=== PATIENT | female | born 1950 ===

== ENCOUNTER 2024-11-30 21:45 | Outpatient (BNV) | payer OTHER, SELFPAY | END 2024-12-13 17:22 | PROVIDERS: Admitting Provider Psychiatry & Neurology Psychiatry; PCP Internal Medicine; Visit Provider Radiology Vascular & Interventional Radiology | DX: S72.121A Displaced fracture of lesser trochanter of right femur, initial encounter for closed fracture (principal); M17.11 Unilateral primary osteoarthritis, right knee; Z96.7 Presence of other bone and tendon implants | CPT/HCPCS: 73552; 73560 ==

== ENCOUNTER 2024-11-30 21:45 | Outpatient (BNV) | payer OTHER, SELFPAY | END 2024-12-17 15:15 | PROVIDERS: Admitting Provider Psychiatry & Neurology Psychiatry; PCP Internal Medicine; Visit Provider Nuclear Medicine | DX: R10.9 Unspecified abdominal pain (principal) | CPT/HCPCS: 74018 ==

== ENCOUNTER 2024-11-30 21:45 | Inpatient (IN) | payer OTHER, SELFPAY ==
--- NOTE | ~2024-11-30 | XR_ITS ---
CLINICAL HISTORY: rt tib plat fx 3 view right knee Comparison: None Findings: Visualized portions of the femoral intramedullary silvio and screw fixation device appear intact. Severe tricompartmental degenerative change, most pronounced within the medial compartment. No effusion. Diffuse vascular calcification noted. IMPRESSION: Severe degenerative changes. No definite acute process. This document has been electronically signed by: Ced Vallecillo MD on 12/14/2024 11:01:37
--- NOTE | ~2024-11-30 | XR_ITS ---
CLINICAL HISTORY: continued compaint of abdominal discomfort 1 view abdomen Comparison: None Findings: No pneumoperitoneum or pneumatosis. No abnormal calcifications. Peg tube. No acute fractures. Severe degenerative change of the left hip. IMPRESSION: The bowel gas pattern is normal This document has been electronically signed by: Marshall Pennington MD on 12/17/2024 16:06:30
--- NOTE | ~2024-11-30 | XR_ITS ---
CLINICAL HISTORY: right hip imn 2 view right femur Comparison: None Findings: Comminuted fracture in the region of the lesser trochanter and along the femoral neck. The intramedullary silvio and nail fixation device appears intact. The right femoral head is well directed towards the right acetabulum. Impression: Postsurgical changes without evidence of periprosthetic fracture. Mildly displaced lesser trochanteric fracture, likely chronic. No comparison studies. This document has been electronically signed by: Ced Vallecillo MD on 12/14/2024 11:27:38
[2024-11-30 22:13] VITALS: BP 123/64; PULSE 94; RESP 18; TEMP 36.7; O2SAT 98
[2024-11-30 22:15] VITALS: BMI 29.5
[2024-12-01] MEDS: Acetaminophen 325 MG TABLET 650 MG PO (02:37)
[2024-12-01] MEDS: traZODone HCL 50 MG TABLET PO (02:38)
[2024-12-01] MEDS: Loperamide HCl Oral Liquid 2 MG/15 ML LIQUID PO (02:39)
[2024-12-01] MEDS: hydrOXYzine HCL 25 MG TABLET PO (02:39)
--- NOTE | 2024-12-01 03:34 | PC.NURSE ---
Patient is 74 y/o female admitted on a CV at 22:10 via stretcher, from [facility]. Medical history is significant for thyroid nodule suspicious of cancer, breast cancer s/p R mastectomy in remission, GERD, PE/DVT, HDL, T2DM, and CHF. Admitting diagnisis is MDD and SI . Patient had an unwitnessed fall at home on 11/04 that was actually a suicide attempt; injuries sustained include posterior head laceration, right intertrochanteric fracture and right tibial plateau fracture. Patient underwent R hip fx repair on 11/04, is currently wheelchair bound, NWB RLE and WBAT LLE, transfers via mechanical lift. Hospital course was complicated r/t c-diff infection; patient underwent vancomyocin therapy and currently cleared prior to discharge. Patient stated during hospitalization that unable to eat d/t sickness. Speech pathology cleared patient for pureed diet however a PEG tube was placed on 11/23 which is currently used for bolus feed. Patient is alert and oriented x 3-4 upon arrival, vss, denies any SI/HI, at times apprehensive and tearful during admission assessment. Skin check and contraband search done: skin excoriation noted in bilateral inner thighs, groin and sacral areas, healing surgical scar with steri-strips in R hip and thigh. [facility] rec completed, patient placed on 5 min checks.
[2024-12-01 07:53] LABS: Estimated Average Glucose 108 mg/dL; Hemoglobin A1c % 5.4 % (<6.0); Total Hemoglobin (HGBA1C) 2903.7822 umol/L
[2024-12-01 08:09] LABS: Alanine Aminotransferase 68 U/L (0-31); Albumin Level 3.3 g/dL (3.5-5.0); Alkaline Phosphatase 375 U/L (39-117); Anion Gap 12 (12-20); Aspartate Amino Transferase 49 U/L (5-31); Bilirubin Total 0.7 mg/dL (0.0-1.0); Blood Urea Nitrogen 22 mg/dL (9-16); Calcium 9.7 mg/dL (8.4-10.2); Carbon Dioxide 28 mmol/L (22-29); Chloride 106 mmol/L (96-108); Cholesterol 165 mg/dL (<200); Creatinine Clr Calc Pharmacy 84.5; Estimated Glomerular Filt Rate > 60; Glucose Random 109 mg/dL (60-115); HDL Cholesterol 39 mg/dL (>40); LDL Cholesterol Calculated 98 mg/dL (<100); Potassium 4.1 mmol/L (3.3-5.1); Sodium 142 mmol/L (135-145); Triglycerides 140 mg/dL (<150)
[2024-12-01 08:22] LABS: TSH reflex Free T4 0.23 uIU/mL (0.32-4.0)
[2024-12-01 09:03] LABS: Free T4 (Free Thyroxine) 1.06 ng/dL (0.71-1.85)
[2024-12-01] MEDS: Omeprazole 20 MG CAPSULE.DR PO (09:45)
[2024-12-01] MEDS: Sertraline HCL 100 MG TABLET G-TUBE (09:45)
[2024-12-01 10:00] VITALS: BP 134/63; PULSE 94; RESP 16; TEMP 37; O2SAT 97
[2024-12-01 11:09] VITALS: BP 128/62
[2024-12-01] MEDS: Metoprolol Tartrate 12.5 MG HALFTAB G-TUBE ×2 (11:09→22:07)
[2024-12-01] MEDS: oxyCODONE HCl Immed Release 5 MG TABLET PO (11:10)
[2024-12-01] MEDS: Loperamide HCl Oral Liquid 2 MG/15 ML LIQUID G-TUBE ×2 (11:13→22:07)
[2024-12-01 11:25] VITALS: BMI 29.5
--- NOTE | 2024-12-01 11:37 | MHC.CLN ---
RE: CONSULT PT REQUIRE TF FOR NUTRITION SUPPORT PT ON BOLUS FEEDS -WAS TAKING [employer] BRAND 1.5 (ONLY HAS 2 CARTONS HERE AT FACILITY AT THIS TIME) PEG PLACED 11/23 REVIEWED LABS DISCUSSED CASE WITH FIDEL MARINO NURSE-ONLY RTH TF AVAILABLE AT FACILITY RECOMMEND OSMOLITE 1.5 TF BOLUS 300ML Q 6 HRS WITH 240ML FREE WATER FLUSHES Q 8 HRS TO PROVIDE 1800KCALS TOTAL (28KCALS/KG), 75G PROTEIN (1.2G/KG), 2092ML TOTAL WATER FROM FORMULA AND FLUSHES DO NOT COMBINE FORMULA AND FLUSHES AT SAME TIME MONITOR TOLERANCE AND LYTES FORMULA IS SUITABLE FOR LACTOSE INTOLERANCE AND DOES NOT CONTAIN EGG (ALLERGY LISTED) WEEKLY WEIGHTS SEE ALSO FULL CLINICAL NUTRITION ASSESSMENT
--- NOTE | 2024-12-01 11:58 | HO.PM.IMCN ---
History of Present Illness Data of Consult Service Date: 12/01/24 Primary Care Provider: Alexandra Poe MD [facility] Reason for consult: Admission H&P Pt is a 72-year-old female with a PMH significant for hx of DVT/PE currently on Lovenox, CHF unspecified, IBS, HLD, prediabetes diet-controlled, hx of breast cancer, thyroid nodule suspicious for cancer, GERD, dysphagia with PEG tube in place, and wheelchair-bound for the past 8 years admitted to [facility] psych for increasing depression with SI. Pt was initially brought to the hospital as a trauma 1 activation after unwitnessed fall out of her wheelchair at home which pt subsequently admitted was a suicide attempt. Pt underwent full trauma workup and was found to have a right intertrochanteric fracture, right tibial plateau fracture, and lateral left 3rd rib fracture. Pt went to the OR on 11/04 for repair of right hip fracture. Pt was treated non operatively for tibial plateau fracture with immobilizer and nonweightbearing. Patient's hospital course was complicated by C diff infection where she was treated with a 14 day course of oral vancomycin with repeat C diff studies negative. Pt was also seen by speech therapy that recommended pureed diet, though pt refused to eat saying that she was too sick to tolerate any oral intake and was unable to swallow. Pt had PEG tube placed on 11/23 by GI and eventually transitioned to bolus tube feeds on a non soy and lactose-free diet. Hospitalist consult for admission H&P. Pt complains of left hip and left knee pain that reports he is poorly controlled with current analgesics. Pt states she is unable to tolerate any weight-bearing, and reports has been wheelchair bound for at least the past 8 years secondary to ?end stage osteoarthritis? of left hip. Also complains of left side pain with movement. States is having loose stool, though reports this is normal for her. Otherwise denies any acute medical complaints. No SOB or difficulty breathing. Denies chest pain/pressure, palpitations. No fever, chills, nausea, vomiting, abdominal pain. Labs reviewed, significant for transaminitis of AST 49, ALT 68, and alk-phos 375. TSH mildly reduced at 0.23 but T4 WNL. Review of Systems Review of Systems: Negative except for that which is stated in the HPI [facility] Medical History (Updated 12/01/24 @ 12:56 by KI Doran) Breast cancer, right Prediabetes HTN (hypertension) GERD (gastroesophageal reflux disease) Fracture of right tibial plateau Closed right hip fracture Pulmonary embolism DVT (deep venous thrombosis) Dysphagia HLD (hyperlipidemia) Thyroid nodule Social History Household Members: Children Household Members Other:: son and daughter Housing: House Do you presently have visiting nurse or other home services: No Patient Tobacco Use Status: Never used Tobacco Smoked in Last 30 Days: No Patient Interested in Nicotine Replacement: No Patient Given Instructions on How to Stop Smoking: No Second Hand Smoke Exposure: No Use of substances other than those prescribed or required for medical reasons: No Currently Displaying Signs/Symptoms of Drug Intoxication Withdrawal: No Any prior treatment program specific to substance use: No Have you been hit, kicked, punched, or otherwise hurt by someone within the past year? If so, by whom?: No Do you feel safe in your current relationship?: No Current Relationship Is there a partner from a previous relationship who is making you feel unsafe now?: No Advance Directives: No Advance Directives Information Provided: No Do you have a plan to hurt others: No Plan Recently lost weight without trying: Unsure Nutrition Risks: Difficulty swallowing Patient : No : No Poor oral hygiene: No Meds Allergies Allergy/AdvReac Type Severity Reaction Status Date / Time apple Allergy Unknown Verified 11/30/24 22:50 cefuroxime Allergy Unknown Verified 11/30/24 22:50 cephalexin [From Keflex] Allergy Unknown Verified 11/30/24 22:50 ciprofloxacin Allergy Unknown Verified 11/30/24 22:50 clarithromycin Allergy Unknown Verified 11/30/24 22:50 codeine Allergy Unknown Verified 11/30/24 22:50 doxycycline Allergy Unknown Verified 11/30/24 22:50 Egg Derived Allergy Unknown Verified 11/30/24 22:50 erythromycin base Allergy Unknown Verified 11/30/24 22:50 furosemide Allergy Unknown Verified 11/30/24 22:50 hydromorphone [From Dilaudid] Allergy Unknown Verified 11/30/24 22:50 indomethacin Allergy Unknown Verified 11/30/24 22:50 Iodinated Contrast Media Allergy Unknown Verified 11/30/24 22:50 iodine Allergy Unknown Verified 11/30/24 22:50 nitrofurantoin Allergy Unknown Verified 11/30/24 22:50 omeprazole Allergy Unknown Verified 11/30/24 22:50 penicillin G Allergy Unknown Verified 11/30/24 22:50 Penicillins Allergy Unknown Verified 11/30/24 22:50 pseudoephedrine Allergy Unknown Verified 11/30/24 22:50 shellfish derived [shellfish] Allergy Unknown Verified 11/30/24 22:50 Sulfa (Sulfonamide Allergy Unknown Verified 11/30/24 22:50 Antibiotics) Active Medications: Current Medications Acetaminophen (Acetaminophen 325 Mg Tablet) 650 mg G-TUBE Q6H PRN PRN Reason: Headache/Pain, Scale 1-10 Al Hydroxide/Mg Hydroxide (Magnesium Hydrox/Alum Hydrox 30 Ml Oral.Susp) 30 ml G-TUBE Q6H PRN PRN Reason: Heartburn/Nausea Hydroxyzine HCl (Hydroxyzine Hcl 25 Mg Tablet) 25 mg G-TUBE Q6H PRN PRN Reason: mild anxiety Loperamide HCl (Loperamide Hcl Oral Liquid 2 Mg/15 Ml Liquid) 2 mg G-TUBE Q6H PRN PRN Reason: Diarrhea Last Admin: 12/01/24 11:13 Dose: 2 mg Magnesium Hydroxide (Milk Of Magnesia 30 Ml Oral.Susp) 30 ml G-TUBE DAILY PRN PRN Reason: Constipation Metoprolol Tartrate (Metoprolol Tartrate 12.5 Mg Halftab) 12.5 mg G-TUBE BID [facility]; Protocol Last Admin: 12/01/24 11:09 Dose: 12.5 mg Mirtazapine (Mirtazapine 7.5 Mg Tablet) 7.5 mg G-TUBE BEDTIME KLAUS Nicotine Polacrilex (Nicotine Polacrilex 2 Mg Gum) 4 mg BUCCAL Q2H PRN PRN Reason: Nicotine Cravings Omeprazole (Omeprazole 20 Mg Capsule.Dr) 20 mg PO DAILY [facility] Last Admin: 12/01/24 09:45 Dose: 20 mg Oxycodone HCl (Oxycodone Hcl Immed Release 5 Mg Tablet) 5 mg PO Q6H PRN PRN Reason: Pain, Severe (Pain Scale 7-10) Last Admin: 12/01/24 11:10 Dose: 5 mg Sertraline HCl (Sertraline Hcl 100 Mg Tablet) 100 mg G-TUBE DAILY [facility] Last Admin: 12/01/24 09:45 Dose: 100 mg Trazodone HCl (Trazodone Hcl 50 Mg Tablet) 50 mg G-TUBE BEDTIME MRX1 PRN PRN Reason: Insomnia Home Medications ?Medication ?Instructions ?Recorded ?Confirmed ?Last Taken ?Type acetaminophen 500 mg tablet 1,000 mg PO Q6H PRN Pain 11/30/24 11/30/24 Unknown History enoxaparin 40 mg/0.4 mL 40 mg subcut DAILY 11/30/24 11/30/24 Unknown History subcutaneous syringe lansoprazole 30 mg capsule,delayed 30 mg PO DAILY 11/30/24 11/30/24 Unknown History release loperamide 1 mg/5 mL oral liquid 2 mg PO Q6H PRN Diarrhea 11/30/24 11/30/24 Unknown History metoprolol tartrate 25 mg tablet 12.5 mg PO BID 11/30/24 11/30/24 Unknown History mirtazapine 7.5 mg tablet 7.5 mg PO BEDTIME 11/30/24 11/30/24 Unknown History oxycodone 5 mg tablet 5 mg PO Q6H PRN Pain 11/30/24 11/30/24 Unknown History sertraline 100 mg tablet 100 mg PO DAILY 11/30/24 11/30/24 Unknown History Physical Exam Vital Signs and Narrative: Vital Signs: Last Vital Signs Temp 98.6 F 12/01/24 10:00 Pulse 94 12/01/24 10:00 Resp 16 12/01/24 10:00 BP 128/62 12/01/24 11:09 Pulse Ox 97 12/01/24 10:00 O2 Del Method Room Air 11/30/24 22:13 BMI result Body Mass Index 29.5 General: AOx3, no acute distress Resp: CTA bilaterally CVS: S1, S2, RRR GI: +BS, NT, no distention Skin: Warm, dry Neuro: Cranial nerves II-XII grossly intact bilaterally. Motor grossly intact bilaterally Extremities: No edema. Right hip and lower extremity ROM reduced secondary to pain. Left lower extremity strength 1/5. Pt capable of wiggling toes. Pedal pulses bilaterally intact and 2+. Results Labs 12/01/24 07:41 Labs: Laboratory Results - last 24 hr 12/01/24 07:41 Anion Gap 12 Estim Creat Clear Calc 84.5 Estimated GFR > 60 Random Glucose 109 Estimat Average Glucose 108 Hemoglobin A1c % 5.4 Calcium 9.7 Total Bilirubin 0.7 AST 49 H ALT 68 H Alkaline Phosphatase 375 H Total Protein 7.0 Albumin 3.3 L Triglycerides 140 Cholesterol 165 LDL Cholesterol, Calc 98 HDL Cholesterol 39 L TSH 0.23 L Free T4 1.06 Assessment and Plan (1) Medical clearance for psychiatric admission: Status: Acute Plan Pt is a 72-year-old female with a PMH significant for hx of DVT/PE currently on Lovenox, CHF unspecified, IBS, HLD, prediabetes diet-controlled, hx of breast cancer, thyroid nodule suspicious for cancer, GERD, dysphagia with PEG tube in place, and wheelchair-bound for the past 8 years admitted to [facility] for increasing depression with SI. Hospitalist consult for medical admission H&P. Mood disorder Plan as per Psychiatry Left hip fracture Underwent surgical repair on 11/04 Continue Tylenol, Oxy for pain management Left tibial plateau fracture Continue immobilizer and nonweightbearing for now Analgesics for pain management Left rib fracture No surgical intervention necessary Analgesics for pain management Dysphagia PEG tube bolus feeding as per nutrition Pt previously cleared for pureed diet, the pt refusing to eat or swallow Recent C diff infection Hospital Course complicated by C diff infection pt completed 14 day course of oral vancomycin Repeat C diff studies were negative No other treatment or workup indicated at this time Thyroid mass Initially visualized on ultrasound on 09/19/2024 and deemed ?highly suspicious? Initial biopsy nondiagnostic Pt refused repeat biopsy while hospitalized Follow up outpatient for repeat thyroid bioposy Hx of DVT/PE Continue Lovenox HTN Pt apparently had episode of wide complex tachycardia either SVT with aberrancy vs slow VT vs accelerated idioventricular rhythm Cardiology consulted on 11/08/2024 who recommended no further workup or treatment Continue metoprolol Prediabetes Diet-controlled Current A1c 5.4 GERD Continue PPI Thank you for allowing us to participate in the care of this patient. Signing off at this time. Please re-consult if any acute complaints or issues arise.
--- NOTE | 2024-12-01 12:09 | P.HPPS_ITS ---
HPI Date of Service: 12/01/24 Chief Complaint: major depressive d/o Sources of Information: patient interviewed, chart reviewed and crisis/core team assessment reviewed HPI Subjective Notes: Flores Warning and Conditional Voluntary Narrative: Mrs. Nicholas is a 74 year-old woman with was brought initially to [facility] ED after she felt from wheelchair and sustained fracture in distal right femoral neck intertrochanteric region. She underwent surgical repair on 11/04. She reported throwing self down the stairs was a suicide attempts. During the hospital stay, she reported she continued to report regret from still being alive. She was seen by psychiatry and was started on sertraline which was titrated to 100mg po daily. She had daily OT/PT. She apparently had reported difficulty swallowing and was started on PEG on 11/23. She had declined anticoagulant for hx of DVT/PE, she had been on coumadin prior to coming to the hospital but reported fear of bleeding. She was continued on lovenox. Pt seen in her room. She is lying in bed. She reports she is in a lot of pain and is worried about moving her legs despite support from PT and OT. She reports she may not be able to participate in PT/OT therapy. She reports she has been feeling more depressed in the past few months. When asked to elaborate, she reports she does not what to think about it and talk about it. She initially reported she does not want to talk about her depression nor reason for being here in the hospital. She denied suicidal ideation. She reported she has children and wants to be with them. She reported she misses her family and hopes to see them soon. She also reports her family are upset with me. She reports now I'm broken. She denies hx of suicide attempts. She denies hx of VH/AH. No signs of delusions. No hx of delusions. She reports poor sleep due to pain. She reports increased loose stools, which are chronic and apparently due to IBS. She reports that although loose stools are chronic they seemed to have increased in frequency recently. She attributed it to being lactose intolerant. Past Psychiatric History: Inpt: none OP: none Past medication trials: she reports hx of sertraline which was effective but stopped because she was feeling better Hx of suicide attempt: denies prior suicide attempt Medical Evaluation Reviewed: Yes [facility] Medical History Breast cancer, right Prediabetes HTN (hypertension) GERD (gastroesophageal reflux disease) Fracture of right tibial plateau Closed right hip fracture Pulmonary embolism DVT (deep venous thrombosis) Dysphagia HLD (hyperlipidemia) Thyroid nodule Family History: denies Social History: Lives with daughter. She worked as transportation aid. She has twin daughter, one who . She has another daughter with number of health conditions. Substance History: denies Trauma History: reports family disputes Diagnostics Vital Signs (24Hr): Vital Signs - 24 hr 11/30/24 22:13 12/01/24 10:00 12/01/24 11:09 Temperature 98.1 F 98.6 F Pulse Rate 94 94 Respiratory Rate 18 16 Blood Pressure 123/64 134/63 128/62 Pulse Oximetry 98 97 Oxygen Delivery Method Room Air BMI result Body Mass Index 29.5 Labs 12/01/24 07:41 Labs: Laboratory Results - last 48 hr 12/01/24 07:41 Sodium 142 Potassium 4.1 Chloride 106 Carbon Dioxide 28 Anion Gap 12 BUN 22 H Creatinine 0.63 Estim Creat Clear Calc 84.5 Estimated GFR > 60 Random Glucose 109 Estimat Average Glucose 108 Hemoglobin A1c % 5.4 Calcium 9.7 Total Bilirubin 0.7 AST 49 H ALT 68 H Alkaline Phosphatase 375 H Total Protein 7.0 Albumin 3.3 L Triglycerides 140 Cholesterol 165 LDL Cholesterol, Calc 98 HDL Cholesterol 39 L TSH 0.23 L Free T4 1.06 Meds/Allergies Meds Home Medications ?Medication ?Instructions ?Recorded ?Confirmed ?Type acetaminophen 500 mg tablet 1,000 mg PO Q6H PRN Pain 11/30/24 11/30/24 History enoxaparin 40 mg/0.4 mL 40 mg subcut DAILY 11/30/24 11/30/24 History subcutaneous syringe lansoprazole 30 mg capsule,delayed 30 mg PO DAILY 11/30/24 11/30/24 History release loperamide 1 mg/5 mL oral liquid 2 mg PO Q6H PRN Diarrhea 11/30/24 11/30/24 History metoprolol tartrate 25 mg tablet 12.5 mg PO BID 11/30/24 11/30/24 History mirtazapine 7.5 mg tablet 7.5 mg PO BEDTIME 11/30/24 11/30/24 History oxycodone 5 mg tablet 5 mg PO Q6H PRN Pain 11/30/24 11/30/24 History sertraline 100 mg tablet 100 mg PO DAILY 11/30/24 11/30/24 History Allergies Allergies Allergy/AdvReac Type Severity Reaction Status Date / Time apple Allergy Unknown Verified 11/30/24 22:50 cefuroxime Allergy Unknown Verified 11/30/24 22:50 cephalexin [From Keflex] Allergy Unknown Verified 11/30/24 22:50 ciprofloxacin Allergy Unknown Verified 11/30/24 22:50 clarithromycin Allergy Unknown Verified 11/30/24 22:50 codeine Allergy Unknown Verified 11/30/24 22:50 doxycycline Allergy Unknown Verified 11/30/24 22:50 Egg Derived Allergy Unknown Verified 11/30/24 22:50 erythromycin base Allergy Unknown Verified 11/30/24 22:50 furosemide Allergy Unknown Verified 11/30/24 22:50 hydromorphone [From Dilaudid] Allergy Unknown Verified 11/30/24 22:50 indomethacin Allergy Unknown Verified 11/30/24 22:50 Iodinated Contrast Media Allergy Unknown Verified 11/30/24 22:50 iodine Allergy Unknown Verified 11/30/24 22:50 nitrofurantoin Allergy Unknown Verified 11/30/24 22:50 omeprazole Allergy Unknown Verified 11/30/24 22:50 penicillin G Allergy Unknown Verified 11/30/24 22:50 Penicillins Allergy Unknown Verified 11/30/24 22:50 pseudoephedrine Allergy Unknown Verified 11/30/24 22:50 shellfish derived [shellfish] Allergy Unknown Verified 11/30/24 22:50 Sulfa (Sulfonamide Allergy Unknown Verified 11/30/24 22:50 Antibiotics) Mental Status Exam Mental Status Exam Narrative: Appearance: wearing hospital gown, MO, in some physical pain due to fractures, hip surgery and chronic osteoarthritis Behavior: guarded, superficially cooperative Psychomotor: lower spasm-like movement of legs, no tremors Speech: clear, normal rate/rhythm/volume, spontaneous TP: linear TC: wanting to see her family Mood: anxious Affect: congruent SI: denies, but also not fully forthcoming HI: denies VH/AH: denies Delusions: no overt signs Insight/judgment: poor x 2. Memory/cog: alert, oriented x 3. pending further cognitive/memory assessments. Assessment & Plan Assessment & Plan (1) MDD (major depressive disorder), recurrent episode, severe: Status: Acute Code(s): F33.2 - Major depressive disorder, recurrent severe without psychotic features (2) Heart failure: Status: Acute Code(s): I50.9 - Heart failure, unspecified (3) Osteoarthritis: Status: Acute Code(s): M19.90 - Unspecified osteoarthritis, unspecified site (4) Thyroid nodule: Status: Acute Code(s): E04.1 - Nontoxic single thyroid nodule (5) HTN (hypertension): Status: Acute Code(s): I10 - Essential (primary) hypertension (6) GERD (gastroesophageal reflux disease): Status: Acute Code(s): K21.9 - Gastro-esophageal reflux disease without esophagitis Plan Mrs. Nicholas is a 74 year-old woman who was brought via EMS to [facility] ED after falling down the stairs. She sustained a right trochanteric fracture, under went repair on 11/04/2024. She reported this was a suicide attempt. She is vague about events leading to suicide attempt. She declines to talk about her depression and provide more details about it. She does denied any plan or intent to harm herself at this moment but also reports feeling depressed and being in a worse situation than prior to suicide attempt. She was started on sertraline while at [facility]. Sertraline was titrated to 100mg po daily. She does have hx of IBS with diarrhea. She reports increase loose stools and although she suspects may be due to feeding with lactose, also consider exacerbation of IBS related loose stools with sertraline. She reports no improvement so far in terms of depression with current medications. PLAN 1. Admit to S1, CV, 5 mins checks 2. continue sertraline 100mg po daily (monitor exacerbation of underlying GI condition and loose stools). May consider switch to another antidepressant. 3. scheduled loperamide TID. 4. obtain collateral information 5. OT/PT consult 6. ST consult for swallowing 7. aftercare planning. Patient educated on: diagnosis and medication risk/benefits Reason for continued inpatient stay Substantial Risk for: harm to self Statement Statement: I have reviewed the history and physical and performed a pertinent examination on my patient. No changes have occurred unless specified. If the History and Physical was not performed prior to admission, the Hospitalist's service will be consulted for completing the admission physical. Time Spent With Patient Time: Total time managing care of this patient today ____ minutes.
[2024-12-01 15:53] VITALS: BMI 27.4
[2024-12-01 20:00] VITALS: BP 121/58; PULSE 63; RESP 18; TEMP 36.3; O2SAT 98
[2024-12-01] MEDS: Mirtazapine 7.5 MG TABLET G-TUBE (22:07)
[2024-12-01] MEDS: hydrOXYzine HCL 25 MG TABLET G-TUBE (22:07)
[2024-12-01] MEDS: Enoxaparin Sodium 40 MG/0.4 ML SYRINGE SUBCUT (22:17)
--- NOTE | 2024-12-01 22:21 | PC.NURSE ---
Upon initial assessment, patient complaining about persistient diarrhea. When educated on timing of tube feeds and water bolus, patient states I need to take a break from them, my body can't handle it. Education provided. Provider ultrasound technologist sonographer (CAW) notified. Patient requests to speak with dietitian tomorrow regarding tube feed schedule.
[2024-12-02 09:26] VITALS: BP 117/67; PULSE 93; RESP 18; TEMP 36.7; O2SAT 96
[2024-12-02] MEDS: Metoprolol Tartrate 12.5 MG HALFTAB G-TUBE ×2 (09:26→21:18)
[2024-12-02] MEDS: Sertraline HCL 100 MG TABLET G-TUBE (09:26)
[2024-12-02] MEDS: Omeprazole 20 MG CAPSULE.DR PO (09:27)
[2024-12-02] MEDS: Loperamide HCl Oral Liquid 2 MG/15 ML LIQUID 4 MG G-TUBE ×3 (11:28→21:18)
[2024-12-02] MEDS: diazePAM 2 MG TABLET G-TUBE (11:28)
--- NOTE | 2024-12-02 16:01 | MHC.CLN ---
Addendum entered by Kira Carroll RD 12/02/24 16:11: OPEN AREA NOTED TO BUTTOCK. NO ADDITIONAL WOUND INFO NOTED AT THIS TIME. RD TO MONITOR SKIN INTEGRITY. Original Note: F/U VISITED WITH PATIENT IN HER ROOM. NO QUESTIONS CONCERNING TUBE FEEDING. APPEARS TO BE TOLERATING CURRENT TUBE FEEDING. RECOMMEND CONTINUE OSMOLITE 1.5 TF BOLUS 300ML Q 6 HRS WITH 240ML FREE WATER FLUSHES Q 8 HRS TO PROVIDE 1800KCALS TOTAL (28KCALS/KG), 75G PROTEIN (1.2G/KG), 2092ML TOTAL WATER FROM FORMULA AND FLUSHES DO NOT COMBINE FORMULA AND FLUSHES AT SAME TIME MONITOR TOLERANCE AND LYTES. FORMULA IS SUITABLE FOR LACTOSE INTOLERANCE AND DOES NOT CONTAIN EGG (ALLERGY LISTED). SEEN BY TOUR GUIDE TODAY. FOLLOW FOR POSSIBLE DIET ADVANCEMENT.
[2024-12-02] MEDS: Enoxaparin Sodium 40 MG/0.4 ML SYRINGE SUBCUT (16:07)
--- NOTE | 2024-12-02 17:16 | HO.WOUND ---
Wound Consult: Initial 74yr old?female admitted to [facility] on 11/30/24 - See progress notes and H&P for detailed history.? Wound consult placed for coccyx.? Patient agreeable to assessment and photo documentation.? Sacrum Etiology: ??MASD - IAD (Moisture Associated Skin Damage - Incontinence Associated Dermatitis) Wound Bed: red pink blanchable tissue with scattered areas of erosion and tissue loss Drainage / Odor: None noted Edges: ? Mirrored and irregular Izzy wound: ?MASD - pink intact blanchable tissue No Induration, Fluctuance or Warmth noted Pain: pain reported Goals of Treatment: ? Triad to allow for moist wound healing and to protect from friction and excess moisture Perineal area assessed for fungal dermatitis - red moist tissue with mirrored advancing boarders with satellite lesions noted. TT to Provider Xuan Saldivar NP for nystatin powder. GLORIA pump in use. Recommendations: 1. Turn and Reposition every 2 hours and as needed for patient comfort.? Use pillows or wedges to support off loading positions. 2. Off Load all bony prominences with use of pillows and heel boots if needed.? Apply Preventative foams where needed. ? 3. Monitor for incontinence and moisture control, use barrier creams when needed for prevention and treatment. 4. Provide adequate and supplemental nutrition.? 5. Continue low air loss mattress. 6. When applicable maintain blood glucose levels per Providers order. Perineal - Cleanse with PH balance wipes, pat dry with soft cloth.? Apply antifungal power to assist with moisture management.? Be sure to dust of excess powder to prevent caking on skin and in folds. Apply per provider orders. Apply thin layer of barrier cream to affected area.? Apply twice daily and Reapply thin layer PRN after each episode of incontinence. Sacrum - Off Load Pressure with Q2 hr turns and use of pillows - Cleanse with PH balance spray or wipes, pat dry. ?Apply thin layer of Triad to wound bed - only pat and dab no scrub and rub when soiling occurs. Reapply thin layer PRN after each episode of incontinence. Re-consult wound care Nurse for wound deterioration or wound changes.
--- NOTE | 2024-12-02 17:29 | HO.PSYCHPN ---
Subjective Subjective Date of Service: 12/02/24 Reason For Visit: major depressive d/o Subjective Notes: Conditional Voluntary Interim History: Pt evasive when it comes to talking about her depression and suicide attempt. She reports she is fearful of PT and OT interventions due to pain. She also continues to report that she is not able to eat- despite another eval from with no abnormal findings nor signs of chocking. She denies SI/HI. She reports increased loose stool, scheduled loperamide. may consider changing antidepressant with less GI side effects especially in setting of IBS. Mental Status Exam Mental Status Exam Narrative: Appearance: wearing hospital gown, MO, in some physical pain due to fractures, hip surgery and chronic osteoarthritis Behavior: guarded, superficially cooperative Psychomotor: lower spasm-like movement of legs, no tremors Speech: clear, normal rate/rhythm/volume, spontaneous TP: linear TC: wanting to see her family Mood: anxious Affect: congruent SI: denies, but also not fully forthcoming HI: denies VH/AH: denies Delusions: no overt signs Insight/judgment: poor x 2. Memory/cog: alert, oriented x 3. pending further cognitive/memory assessments. Diagnostics Vital Signs (24Hr): Vital Signs - 24 hr 12/01/24 20:00 12/02/24 09:26 Temperature 97.3 F 98.1 F Pulse Rate 63 93 Respiratory Rate 18 18 Blood Pressure 121/58 L 117/67 Pulse Oximetry 98 96 Oxygen Delivery Method Room Air Room Air BMI result Body Mass Index 27.4 Labs 12/01/24 07:41 Labs: Laboratory Results - last 48 hr 12/01/24 07:41 Sodium 142 Potassium 4.1 Chloride 106 Carbon Dioxide 28 Anion Gap 12 BUN 22 H Creatinine 0.63 Estim Creat Clear Calc 84.5 Estimated GFR > 60 Random Glucose 109 Estimat Average Glucose 108 Hemoglobin A1c % 5.4 Calcium 9.7 Total Bilirubin 0.7 AST 49 H ALT 68 H Alkaline Phosphatase 375 H Total Protein 7.0 Albumin 3.3 L Triglycerides 140 Cholesterol 165 LDL Cholesterol, Calc 98 HDL Cholesterol 39 L TSH 0.23 L Free T4 1.06 Medications Medications Current Medications Acetaminophen (Acetaminophen 325 Mg Tablet) 650 mg G-TUBE Q6H PRN PRN Reason: Headache/Pain, Scale 1-10 Al Hydroxide/Mg Hydroxide (Magnesium Hydrox/Alum Hydrox 30 Ml Oral.Susp) 30 ml G-TUBE Q6H PRN PRN Reason: Heartburn/Nausea Enoxaparin Sodium (Enoxaparin Sodium 40 Mg/0.4 Ml Syringe) 40 mg SUBCUT Q24H [facility] Last Admin: 12/02/24 16:07 Dose: 40 mg Hydroxyzine HCl (Hydroxyzine Hcl 25 Mg Tablet) 25 mg G-TUBE Q6H PRN PRN Reason: mild anxiety Last Admin: 12/01/24 22:07 Dose: 25 mg Loperamide HCl (Loperamide Hcl Oral Liquid 2 Mg/15 Ml Liquid) 4 mg G-TUBE TID [facility] Last Admin: 12/02/24 16:09 Dose: 4 mg Magnesium Hydroxide (Milk Of Magnesia 30 Ml Oral.Susp) 30 ml G-TUBE DAILY PRN PRN Reason: Constipation Metoprolol Tartrate (Metoprolol Tartrate 12.5 Mg Halftab) 12.5 mg G-TUBE BID [facility]; Protocol Last Admin: 12/02/24 09:26 Dose: 12.5 mg Mirtazapine (Mirtazapine 7.5 Mg Tablet) 7.5 mg G-TUBE BEDTIME [facility] Last Admin: 12/01/24 22:07 Dose: 7.5 mg Nicotine Polacrilex (Nicotine Polacrilex 2 Mg Gum) 4 mg BUCCAL Q2H PRN PRN Reason: Nicotine Cravings Nystatin (Nystatin Powder 15 Gm Bottle) 1 appl TOPICAL BID [facility]; Protocol Omeprazole (Omeprazole 20 Mg Capsule.Dr) 20 mg PO DAILY [facility] Last Admin: 12/02/24 09:27 Dose: 20 mg Oxycodone HCl (Oxycodone Hcl Immed Release 5 Mg Tablet) 5 mg PO Q6H PRN PRN Reason: Pain, Severe (Pain Scale 7-10) Last Admin: 12/01/24 11:10 Dose: 5 mg Sertraline HCl (Sertraline Hcl 100 Mg Tablet) 100 mg G-TUBE DAILY [facility] Last Admin: 12/02/24 09:26 Dose: 100 mg Trazodone HCl (Trazodone Hcl 50 Mg Tablet) 50 mg G-TUBE BEDTIME MRX1 PRN PRN Reason: Insomnia Allergies Allergies Allergy/AdvReac Type Severity Reaction Status Date / Time apple Allergy Unknown Verified 11/30/24 22:50 cefuroxime Allergy Unknown Verified 11/30/24 22:50 cephalexin [From Keflex] Allergy Unknown Verified 11/30/24 22:50 ciprofloxacin Allergy Unknown Verified 11/30/24 22:50 clarithromycin Allergy Unknown Verified 11/30/24 22:50 codeine Allergy Unknown Verified 11/30/24 22:50 doxycycline Allergy Unknown Verified 11/30/24 22:50 Egg Derived Allergy Unknown Verified 11/30/24 22:50 erythromycin base Allergy Unknown Verified 11/30/24 22:50 furosemide Allergy Unknown Verified 11/30/24 22:50 hydromorphone [From Dilaudid] Allergy Unknown Verified 11/30/24 22:50 indomethacin Allergy Unknown Verified 11/30/24 22:50 Iodinated Contrast Media Allergy Unknown Verified 11/30/24 22:50 iodine Allergy Unknown Verified 11/30/24 22:50 nitrofurantoin Allergy Unknown Verified 11/30/24 22:50 omeprazole Allergy Unknown Verified 11/30/24 22:50 penicillin G Allergy Unknown Verified 11/30/24 22:50 Penicillins Allergy Unknown Verified 11/30/24 22:50 pseudoephedrine Allergy Unknown Verified 11/30/24 22:50 shellfish derived [shellfish] Allergy Unknown Verified 11/30/24 22:50 Sulfa (Sulfonamide Allergy Unknown Verified 11/30/24 22:50 Antibiotics) Assessment & Plan Assessment & Plan (1) MDD (major depressive disorder), recurrent episode, severe: Status: Acute Code(s): F33.2 - Major depressive disorder, recurrent severe without psychotic features (2) Heart failure: Status: Acute Code(s): I50.9 - Heart failure, unspecified (3) Osteoarthritis: Status: Acute Code(s): M19.90 - Unspecified osteoarthritis, unspecified site (4) Thyroid nodule: Status: Acute Code(s): E04.1 - Nontoxic single thyroid nodule (5) HTN (hypertension): Status: Acute Code(s): I10 - Essential (primary) hypertension (6) GERD (gastroesophageal reflux disease): Status: Acute Code(s): K21.9 - Gastro-esophageal reflux disease without esophagitis Plan Mrs. Nicholas is a 74 year-old woman who was brought via EMS to [facility] ED after falling down the stairs. She sustained a right trochanteric fracture, under went repair on 11/04/2024. She reported this was a suicide attempt. She is vague about events leading to suicide attempt. She declines to talk about her depression and provide more details about it. She does denied any plan or intent to harm herself at this moment but also reports feeling depressed and being in a worse situation than prior to suicide attempt. She was started on sertraline while at [facility]. Sertraline was titrated to 100mg po daily. She does have hx of IBS with diarrhea. She reports increase loose stools and although she suspects may be due to feeding with lactose, also consider exacerbation of IBS related loose stools with sertraline. She reports no improvement so far in terms of depression with current medications. PLAN 1. Admit to S1, CV, 5 mins checks 2. continue sertraline 100mg po daily (monitor exacerbation of underlying GI condition and loose stools). May consider switch to another antidepressant. 3. scheduled loperamide TID. 4. obtain collateral information 5. OT/PT consult 6. ST consult for swallowing 7. aftercare planning. Reason for continued inpatient stay Substantial Risk for: inability to function Time Spent With Patient Time: Total time managing care of this patient today ____ minutes.
[2024-12-02 20:00] VITALS: BP 115/53; PULSE 94; RESP 17; TEMP 36.9; O2SAT 98
[2024-12-02] MEDS: Mirtazapine 7.5 MG TABLET G-TUBE (21:19)
[2024-12-02] MEDS: Nystatin Powder 15 GM BOTTLE 1 APPL TOPICAL (21:46)
[2024-12-03 08:00] VITALS: BP 125/60; PULSE 85; RESP 14; TEMP 36.9; O2SAT 96
[2024-12-03] MEDS: Sertraline HCL 100 MG TABLET G-TUBE (08:17)
[2024-12-03] MEDS: Metoprolol Tartrate 12.5 MG HALFTAB G-TUBE ×2 (08:18→20:45)
[2024-12-03] MEDS: Loperamide HCl Oral Liquid 2 MG/15 ML LIQUID 4 MG G-TUBE ×3 (08:22→20:45)
[2024-12-03] MEDS: Omeprazole 20 MG CAPSULE.DR PO (08:22)
--- NOTE | 2024-12-03 09:09 | P.PNPSI_ITS ---
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- Medication Compliance: Yes Side effects from medications: No Attending Groups: No Review of Systems Acute medical concerns: Yes recovering from injuries from suicide attempt- also on going diarrhea- on gtube hx ibs by pt report prior Medical Review of Systems: unchanged Mental Status Exam Mental Status Exam Patient Appearance: Appropriate Patient Orientation: Person, Place and Situation Level of Consciousness: Awake Patient Behavior: Dependent, Passive, Resistive to Care and Crying Mood Description: Sad Affect Description: Flat Patient Cognition Impaired: No Ability to Follow Directions: Fair Speech Pattern: Clear Hallucinations: None Delusions: Not Present Thought Process: Intact and Goal Oriented Thought Content: positive for Perseveration Depressive Symptoms: Muscle Pain and Increased Fatigue Abnormal Motor Activity Signs and Symptoms: Psychomotor Retardation Judgement: Fair Diagnostics Vital Signs (24Hr): Vital Signs - 24 hr 12/02/24 09:26 12/02/24 20:00 12/03/24 08:00 Temperature 98.1 F 98.4 F 98.4 F Pulse Rate 93 94 85 Respiratory Rate 18 17 14 Blood Pressure 117/67 115/53 L 125/60 Pulse Oximetry 96 98 96 Oxygen Delivery Method Room Air Room Air Room Air BMI result Body Mass Index 27.4 Labs 12/01/24 07:41 Medications Medications Current Medications Acetaminophen (Acetaminophen 325 Mg Tablet) 650 mg G-TUBE Q6H PRN PRN Reason: Headache/Pain, Scale 1-10 Al Hydroxide/Mg Hydroxide (Magnesium Hydrox/Alum Hydrox 30 Ml Oral.Susp) 30 ml G-TUBE Q6H PRN PRN Reason: Heartburn/Nausea Enoxaparin Sodium (Enoxaparin Sodium 40 Mg/0.4 Ml Syringe) 40 mg SUBCUT Q24H [facility] Last Admin: 12/02/24 16:07 Dose: 40 mg Hydroxyzine HCl (Hydroxyzine Hcl 25 Mg Tablet) 25 mg G-TUBE Q6H PRN PRN Reason: mild anxiety Last Admin: 12/01/24 22:07 Dose: 25 mg Loperamide HCl (Loperamide Hcl Oral Liquid 2 Mg/15 Ml Liquid) 4 mg G-TUBE TID [facility] Last Admin: 12/03/24 08:22 Dose: 4 mg Magnesium Hydroxide (Milk Of Magnesia 30 Ml Oral.Susp) 30 ml G-TUBE DAILY PRN PRN Reason: Constipation Metoprolol Tartrate (Metoprolol Tartrate 12.5 Mg Halftab) 12.5 mg G-TUBE BID [facility]; Protocol Last Admin: 12/03/24 08:18 Dose: 12.5 mg Mirtazapine (Mirtazapine 7.5 Mg Tablet) 7.5 mg G-TUBE BEDTIME [facility] Last Admin: 12/02/24 21:19 Dose: 7.5 mg Nicotine Polacrilex (Nicotine Polacrilex 2 Mg Gum) 4 mg BUCCAL Q2H PRN PRN Reason: Nicotine Cravings Nystatin (Nystatin Powder 15 Gm Bottle) 1 appl TOPICAL BID [facility]; Protocol Last Admin: 12/02/24 21:46 Dose: 1 appl Omeprazole (Omeprazole/Na Bicarb Oral Susp 20 Mg/10 Ml Ud Cup) 20 mg G-TUBE DAILY@0630 [facility] Oxycodone HCl (Oxycodone Hcl Immed Release 5 Mg Tablet) 5 mg PO Q6H PRN PRN Reason: Pain, Severe (Pain Scale 7-10) Last Admin: 12/01/24 11:10 Dose: 5 mg Sertraline HCl (Sertraline Hcl 100 Mg Tablet) 100 mg G-TUBE DAILY [facility] Last Admin: 12/03/24 08:17 Dose: 100 mg Trazodone HCl (Trazodone Hcl 50 Mg Tablet) 50 mg G-TUBE BEDTIME MRX1 PRN PRN Reason: Insomnia Allergies Allergies Allergy/AdvReac Type Severity Reaction Status Date / Time apple Allergy Unknown Verified 11/30/24 22:50 cefuroxime Allergy Unknown Verified 11/30/24 22:50 cephalexin [From Keflex] Allergy Unknown Verified 11/30/24 22:50 ciprofloxacin Allergy Unknown Verified 11/30/24 22:50 clarithromycin Allergy Unknown Verified 11/30/24 22:50 codeine Allergy Unknown Verified 11/30/24 22:50 doxycycline Allergy Unknown Verified 11/30/24 22:50 Egg Derived Allergy Unknown Verified 11/30/24 22:50 erythromycin base Allergy Unknown Verified 11/30/24 22:50 furosemide Allergy Unknown Verified 11/30/24 22:50 hydromorphone [From Dilaudid] Allergy Unknown Verified 11/30/24 22:50 indomethacin Allergy Unknown Verified 11/30/24 22:50 Iodinated Contrast Media Allergy Unknown Verified 11/30/24 22:50 iodine Allergy Unknown Verified 11/30/24 22:50 nitrofurantoin Allergy Unknown Verified 11/30/24 22:50 omeprazole Allergy Unknown Verified 11/30/24 22:50 penicillin G Allergy Unknown Verified 11/30/24 22:50 Penicillins Allergy Unknown Verified 11/30/24 22:50 pseudoephedrine Allergy Unknown Verified 11/30/24 22:50 shellfish derived [shellfish] Allergy Unknown Verified 11/30/24 22:50 Sulfa (Sulfonamide Allergy Unknown Verified 11/30/24 22:50 Antibiotics) Assessment & Plan Assessment & Plan (1) MDD (major depressive disorder), recurrent episode, severe: Status: Acute Code(s): F33.2 - Major depressive disorder, recurrent severe without psychotic features (2) Heart failure: Status: Acute Code(s): I50.9 - Heart failure, unspecified (3) Osteoarthritis: Status: Acute Code(s): M19.90 - Unspecified osteoarthritis, unspecified site (4) Thyroid nodule: Status: Acute Code(s): E04.1 - Nontoxic single thyroid nodule (5) HTN (hypertension): Status: Acute Code(s): I10 - Essential (primary) hypertension (6) GERD (gastroesophageal reflux disease): Status: Acute Code(s): K21.9 - Gastro-esophageal reflux disease without esophagitis Plan Mrs. Nicholas is a 74 year-old woman who was brought via EMS to [facility] ED after falling down the stairs. She sustained a right trochanteric fracture, under went repair on 11/04/2024. She reported this was a suicide attempt. She is vague about events leading to suicide attempt. She declines to talk about her depression and provide more details about it. She does denied any plan or intent to harm herself at this moment but also reports feeling depressed and being in a worse situation than prior to suicide attempt. She was started on sertraline while at [facility]. Sertraline was titrated to 100mg po daily. She does have hx of IBS with diarrhea. She reports increase loose stools and although she suspects may be due to feeding with lactose, also consider exacerbation of IBS related loose stools with sertraline. She reports no improvement so far in terms of depression with current medications. PLAN 1. Admit to S1, CV, 5 mins checks 2. continue sertraline 100mg po daily (monitor exacerbation of underlying GI condition and loose stools). May consider switch to another antidepressant. 3. scheduled loperamide TID. 4. obtain collateral information 5. OT/PT consult 6. ST consult for swallowing 7. aftercare planning. 12/03 - unsure why sertraline has not been changed over to other med given diarrhea/colitis ? will discuss with pt tomorrow- otehrwise ctp - change omeprazole to famotidine due to hx allergy- though pt does not remember the allergy- Reason for continued inpatient stay Substantial Risk for: rapid decompensation and med/psych decompensation Time Spent With Patient Time: Total time managing care of this patient today ____ minutes.
[2024-12-03] MEDS: Nystatin Powder 15 GM BOTTLE 1 APPL TOPICAL ×2 (10:59→21:00)
[2024-12-03] MEDS: oxyCODONE HCl Immed Release 5 MG TABLET PO (12:36)
--- NOTE | 2024-12-03 15:09 | PC.NURSE ---
Addendum entered and electronically signed by Yamileth Cruz RN 12/03/24 15:20: Bacitracin charles applied to open area left posterior head. Original Note: Nickel sized open area noted left posterior head during shampoo with [address] Placed prior to admission to this hospital during previous hospitalization per pt. One stitch removed from open area per Dr Christianson, tolerated well.
[2024-12-03] MEDS: Enoxaparin Sodium 40 MG/0.4 ML SYRINGE SUBCUT (17:18)
[2024-12-03 20:00] VITALS: BP 125/60; PULSE 86; RESP 15; TEMP 36.4; O2SAT 97
[2024-12-03] MEDS: Famotidine 20 MG TABLET G-TUBE (20:45)
[2024-12-03] MEDS: Mirtazapine 7.5 MG TABLET G-TUBE (20:46)
[2024-12-04 08:00] VITALS: BP 107/54; PULSE 88; TEMP 36.4; O2SAT 96
[2024-12-04] MEDS: Famotidine 20 MG TABLET G-TUBE ×2 (08:42→21:36)
[2024-12-04] MEDS: Sertraline HCL 100 MG TABLET G-TUBE (08:42)
[2024-12-04] MEDS: Metoprolol Tartrate 12.5 MG HALFTAB G-TUBE ×2 (08:42→21:36)
[2024-12-04] MEDS: Loperamide HCl Oral Liquid 2 MG/15 ML LIQUID 4 MG G-TUBE ×3 (08:43→21:35)
--- NOTE | 2024-12-04 10:37 | HO.PSYCHPN ---
Subjective Subjective Date of Service: 12/04/24 Reason For Visit: major depressive d/o Subjective Notes: Conditional Voluntary Healthcare Proxy: No Guardianship: No Medical Problems Affecting Mental Status: Yes (gtube rate contributing to gi issues?) Interim History: 74 with problems with gi ongoing diarrhea seem gtube feed related will get gi consult- also will slow down rate of feedings to see if that helps - Pt reports prior trial of fluoxetine made her irritable , doesn't remember other med trials ( ? lexapro might be better on gi) Also patient co dizziness and nausea when turned by nursing from one side to other- no ringing in ear- will consult PT to see if benign positional nystagmus which is quite treatable with PT exercises. Medication Compliance: Yes Side effects from medications: Yes (? worsening diarrhea) Attending Groups: No Review of Systems as above Medical Review of Systems: unchanged (ongoing) Mental Status Exam Mental Status Exam Patient Appearance: Appropriate Patient Orientation: Person, Place and Situation Level of Consciousness: Awake Patient Behavior: Dependent, Cooperative and Passive Mood Description: Anxious and Sad Affect Description: Apprehensive Patient Cognition Impaired: No Ability to Follow Directions: Fair Speech Pattern: Clear Hallucinations: None Delusions: Present (feels not believed about various problems- not sure this is paranoia, or character) Thought Process: Intact and Goal Oriented Thought Content: positive for Perseveration (somatic) Depressive Symptoms: Increased Anxiety and Unhappiness Judgement: Fair Diagnostics Vital Signs (24Hr): Vital Signs - 24 hr 12/03/24 20:00 12/04/24 08:00 Temperature 97.5 F 97.6 F Pulse Rate 86 88 Respiratory Rate 15 Blood Pressure 125/60 107/54 L Pulse Oximetry 97 96 Oxygen Delivery Method Room Air Room Air BMI result Body Mass Index 27.4 Labs 12/01/24 07:41 Medications Medications Current Medications Acetaminophen (Acetaminophen 325 Mg Tablet) 650 mg G-TUBE Q6H PRN PRN Reason: Headache/Pain, Scale 1-10 Al Hydroxide/Mg Hydroxide (Magnesium Hydrox/Alum Hydrox 30 Ml Oral.Susp) 30 ml G-TUBE Q6H PRN PRN Reason: Heartburn/Nausea Enoxaparin Sodium (Enoxaparin Sodium 40 Mg/0.4 Ml Syringe) 40 mg SUBCUT Q24H KLAUS Last Admin: 12/03/24 17:18 Dose: 40 mg Famotidine (Famotidine 20 Mg Tablet) 20 mg G-TUBE BID [facility] Last Admin: 12/04/24 08:42 Dose: 20 mg Hydroxyzine HCl (Hydroxyzine Hcl 25 Mg Tablet) 25 mg G-TUBE Q6H PRN PRN Reason: mild anxiety Last Admin: 12/01/24 22:07 Dose: 25 mg Loperamide HCl (Loperamide Hcl Oral Liquid 2 Mg/15 Ml Liquid) 4 mg G-TUBE TID [facility] Last Admin: 12/04/24 08:43 Dose: 4 mg Magnesium Hydroxide (Milk Of Magnesia 30 Ml Oral.Susp) 30 ml G-TUBE DAILY PRN PRN Reason: Constipation Metoprolol Tartrate (Metoprolol Tartrate 12.5 Mg Halftab) 12.5 mg G-TUBE BID [facility]; Protocol Last Admin: 12/04/24 08:42 Dose: 12.5 mg Mirtazapine (Mirtazapine 7.5 Mg Tablet) 7.5 mg G-TUBE BEDTIME [facility] Last Admin: 12/03/24 20:46 Dose: 7.5 mg Nicotine Polacrilex (Nicotine Polacrilex 2 Mg Gum) 4 mg BUCCAL Q2H PRN PRN Reason: Nicotine Cravings Nystatin (Nystatin Powder 15 Gm Bottle) 1 appl TOPICAL BID [facility]; Protocol Last Admin: 12/03/24 21:00 Dose: 1 appl Oxycodone HCl (Oxycodone Hcl Immed Release 5 Mg Tablet) 5 mg PO Q6H PRN PRN Reason: Pain, Severe (Pain Scale 7-10) Last Admin: 12/03/24 12:36 Dose: 5 mg Sertraline HCl (Sertraline Hcl 100 Mg Tablet) 100 mg G-TUBE DAILY [facility] Last Admin: 12/04/24 08:42 Dose: 100 mg Trazodone HCl (Trazodone Hcl 50 Mg Tablet) 50 mg G-TUBE BEDTIME MRX1 PRN PRN Reason: Insomnia Allergies Allergies Allergy/AdvReac Type Severity Reaction Status Date / Time apple Allergy Unknown Verified 11/30/24 22:50 cefuroxime Allergy Unknown Verified 11/30/24 22:50 cephalexin [From Keflex] Allergy Unknown Verified 11/30/24 22:50 ciprofloxacin Allergy Unknown Verified 11/30/24 22:50 clarithromycin Allergy Unknown Verified 11/30/24 22:50 codeine Allergy Unknown Verified 11/30/24 22:50 doxycycline Allergy Unknown Verified 11/30/24 22:50 Egg Derived Allergy Unknown Verified 11/30/24 22:50 erythromycin base Allergy Unknown Verified 11/30/24 22:50 furosemide Allergy Unknown Verified 11/30/24 22:50 hydromorphone [From Dilaudid] Allergy Unknown Verified 11/30/24 22:50 indomethacin Allergy Unknown Verified 11/30/24 22:50 Iodinated Contrast Media Allergy Unknown Verified 11/30/24 22:50 iodine Allergy Unknown Verified 11/30/24 22:50 nitrofurantoin Allergy Unknown Verified 11/30/24 22:50 omeprazole Allergy Unknown Verified 11/30/24 22:50 penicillin G Allergy Unknown Verified 11/30/24 22:50 Penicillins Allergy Unknown Verified 11/30/24 22:50 pseudoephedrine Allergy Unknown Verified 11/30/24 22:50 shellfish derived [shellfish] Allergy Unknown Verified 11/30/24 22:50 Sulfa (Sulfonamide Allergy Unknown Verified 11/30/24 22:50 Antibiotics) Assessment & Plan Assessment & Plan (1) MDD (major depressive disorder), recurrent episode, severe: Status: Acute Code(s): F33.2 - Major depressive disorder, recurrent severe without psychotic features (2) Heart failure: Status: Acute Code(s): I50.9 - Heart failure, unspecified (3) Osteoarthritis: Status: Acute Code(s): M19.90 - Unspecified osteoarthritis, unspecified site (4) Thyroid nodule: Status: Acute Code(s): E04.1 - Nontoxic single thyroid nodule (5) HTN (hypertension): Status: Acute Code(s): I10 - Essential (primary) hypertension (6) GERD (gastroesophageal reflux disease): Status: Acute Code(s): K21.9 - Gastro-esophageal reflux disease without esophagitis Plan Mrs. Nicholas is a 74 year-old woman who was brought via EMS to [facility] ED after falling down the stairs. She sustained a right trochanteric fracture, under went repair on 11/04/2024. She reported this was a suicide attempt. She is vague about events leading to suicide attempt. She declines to talk about her depression and provide more details about it. She does denied any plan or intent to harm herself at this moment but also reports feeling depressed and being in a worse situation than prior to suicide attempt. She was started on sertraline while at [facility]. Sertraline was titrated to 100mg po daily. She does have hx of IBS with diarrhea. She reports increase loose stools and although she suspects may be due to feeding with lactose, also consider exacerbation of IBS related loose stools with sertraline. She reports no improvement so far in terms of depression with current medications. PLAN 1. Admit to S1, CV, 5 mins checks 2. continue sertraline 100mg po daily (monitor exacerbation of underlying GI condition and loose stools). May consider switch to another antidepressant. 3. scheduled loperamide TID. 4. obtain collateral information 5. OT/PT consult 6. ST consult for swallowing 7. aftercare planning. 12/03 - unsure why sertraline has not been changed over to other med given diarrhea/colitis ? will discuss with pt tomorrow- otehrwise ctp - change omeprazole to famotidine due to hx allergy- though pt does not remember the allergy- 12/04 -PT consult, GI consult, further consideration about changing ssri, change enteric feeding rate- Patient educated on: medical condition Informed Consent: understands Reason for continued inpatient stay Substantial Risk for: inability to function, rapid decompensation and med/psych decompensation Time Spent With Patient Time: Total time managing care of this patient today ____ minutes.
[2024-12-04] MEDS: Nystatin Powder 15 GM BOTTLE 1 APPL TOPICAL ×2 (13:35→21:35)
[2024-12-04] MEDS: hydrOXYzine HCL 25 MG TABLET G-TUBE ×2 (13:58→21:35)
--- NOTE | 2024-12-04 15:32 | PC.NURSE ---
After receiving her afternoon feed she became very gassy and she had audible bowel sounds. She has been crying and upset given a dose of Atarax to help her anxiety. She later was restless in the bed and thinking the atarax was interacting with the lovenox I reassured her that wasn't the case. She had 3 large loose stools post feed which also upset her. Dr Velasco was tiger texted to have her feeding rate lower to see if feeding longer would decrease this issue. Rate decreased from 999ml/hr to 300ml/hr.
[2024-12-04] MEDS: Enoxaparin Sodium 40 MG/0.4 ML SYRINGE SUBCUT (17:55)
[2024-12-04 20:00] VITALS: BP 110/55; PULSE 89; RESP 18; TEMP 36.3; O2SAT 96
[2024-12-04] MEDS: oxyCODONE HCl Immed Release 5 MG TABLET PO (21:35)
[2024-12-04] MEDS: Mirtazapine 7.5 MG TABLET G-TUBE (21:36)
[2024-12-04] MEDS: traZODone HCL 50 MG TABLET G-TUBE (21:36)
[2024-12-04 23:00] LABS: CDiff Gene PCR NEGATIVE (Negative)
[2024-12-05 08:00] VITALS: BP 133/60; PULSE 98; RESP 16; TEMP 36.4; O2SAT 97
--- NOTE | 2024-12-05 08:50 | HO.PSYCHPN ---
Subjective Subjective Date of Service: 12/05/24 Reason For Visit: major depressive d/o Subjective Notes: Conditional Voluntary Interim History: Pt reports feeling a little bit better in terms of depression. Today, she has been out in bakari chair and went to groups and stayed in common area. She was also more open to work with OT. Discussed changing sertraline to different antidepressant due to exacerbation of underlying GI s/s due to IBS, pending consult to GI. Updated daughter- in agreement with plan. Review of Systems Review of Systems No chest pain. No SOB back, knee and hip pain Mental Status Exam Mental Status Exam Narrative: Appearance: wearing hospital gown, MO, in some physical pain due to fractures, hip surgery and chronic osteoarthritis Behavior: guarded, superficially cooperative Psychomotor: lower spasm-like movement of legs, no tremors Speech: clear, normal rate/rhythm/volume, spontaneous TP: linear TC: wanting to see her family Mood: anxious Affect: congruent SI: denies, but also not fully forthcoming HI: denies VH/AH: denies Delusions: no overt signs Insight/judgment: poor x 2. Memory/cog: alert, oriented x 3. pending further cognitive/memory assessments. Diagnostics Vital Signs (24Hr): Vital Signs - 24 hr 12/04/24 20:00 Temperature 97.4 F Pulse Rate 89 Respiratory Rate 18 Blood Pressure 110/55 L Pulse Oximetry 96 Oxygen Delivery Method Room Air BMI result Body Mass Index 27.4 Labs 12/01/24 07:41 Labs: Laboratory Results - last 48 hr 12/04/24 22:00 C. difficile Tox B Gene NEGATIVE Medications Medications Current Medications Acetaminophen (Acetaminophen 325 Mg Tablet) 650 mg G-TUBE Q6H PRN PRN Reason: Headache/Pain, Scale 1-10 Al Hydroxide/Mg Hydroxide (Magnesium Hydrox/Alum Hydrox 30 Ml Oral.Susp) 30 ml G-TUBE Q6H PRN PRN Reason: Heartburn/Nausea Enoxaparin Sodium (Enoxaparin Sodium 40 Mg/0.4 Ml Syringe) 40 mg SUBCUT Q24H [facility]LAUS Last Admin: 12/04/24 17:55 Dose: 40 mg Famotidine (Famotidine 20 Mg Tablet) 20 mg G-TUBE BID [facility] Last Admin: 12/04/24 21:36 Dose: 20 mg Hydroxyzine HCl (Hydroxyzine Hcl 25 Mg Tablet) 25 mg G-TUBE Q6H PRN PRN Reason: mild anxiety Last Admin: 12/04/24 21:35 Dose: 25 mg Loperamide HCl (Loperamide Hcl Oral Liquid 2 Mg/15 Ml Liquid) 4 mg G-TUBE TID [facility] Last Admin: 12/04/24 21:35 Dose: 4 mg Magnesium Hydroxide (Milk Of Magnesia 30 Ml Oral.Susp) 30 ml G-TUBE DAILY PRN PRN Reason: Constipation Metoprolol Tartrate (Metoprolol Tartrate 12.5 Mg Halftab) 12.5 mg G-TUBE BID [facility]; Protocol Last Admin: 12/04/24 21:36 Dose: 12.5 mg Mirtazapine (Mirtazapine 7.5 Mg Tablet) 7.5 mg G-TUBE BEDTIME [facility] Last Admin: 12/04/24 21:36 Dose: 7.5 mg Nicotine Polacrilex (Nicotine Polacrilex 2 Mg Gum) 4 mg BUCCAL Q2H PRN PRN Reason: Nicotine Cravings Nystatin (Nystatin Powder 15 Gm Bottle) 1 appl TOPICAL BID [facility]; Protocol Last Admin: 12/04/24 21:35 Dose: 1 appl Oxycodone HCl (Oxycodone Hcl Immed Release 5 Mg Tablet) 5 mg PO Q6H PRN PRN Reason: Pain, Severe (Pain Scale 7-10) Last Admin: 12/04/24 21:35 Dose: 5 mg Sertraline HCl (Sertraline Hcl 100 Mg Tablet) 100 mg G-TUBE DAILY [facility] Last Admin: 12/04/24 08:42 Dose: 100 mg Trazodone HCl (Trazodone Hcl 50 Mg Tablet) 50 mg G-TUBE BEDTIME MRX1 PRN PRN Reason: Insomnia Last Admin: 12/04/24 21:36 Dose: 50 mg Allergies Allergies Allergy/AdvReac Type Severity Reaction Status Date / Time apple Allergy Unknown Verified 11/30/24 22:50 cefuroxime Allergy Unknown Verified 11/30/24 22:50 cephalexin [From Keflex] Allergy Unknown Verified 11/30/24 22:50 ciprofloxacin Allergy Unknown Verified 11/30/24 22:50 clarithromycin Allergy Unknown Verified 11/30/24 22:50 codeine Allergy Unknown Verified 11/30/24 22:50 doxycycline Allergy Unknown Verified 11/30/24 22:50 Egg Derived Allergy Unknown Verified 11/30/24 22:50 erythromycin base Allergy Unknown Verified 11/30/24 22:50 furosemide Allergy Unknown Verified 11/30/24 22:50 hydromorphone [From Dilaudid] Allergy Unknown Verified 11/30/24 22:50 indomethacin Allergy Unknown Verified 11/30/24 22:50 Iodinated Contrast Media Allergy Unknown Verified 11/30/24 22:50 iodine Allergy Unknown Verified 11/30/24 22:50 nitrofurantoin Allergy Unknown Verified 11/30/24 22:50 omeprazole Allergy Unknown Verified 11/30/24 22:50 penicillin G Allergy Unknown Verified 11/30/24 22:50 Penicillins Allergy Unknown Verified 11/30/24 22:50 pseudoephedrine Allergy Unknown Verified 11/30/24 22:50 shellfish derived [shellfish] Allergy Unknown Verified 11/30/24 22:50 Sulfa (Sulfonamide Allergy Unknown Verified 11/30/24 22:50 Antibiotics) Assessment & Plan Assessment & Plan (1) MDD (major depressive disorder), recurrent episode, severe: Status: Acute Code(s): F33.2 - Major depressive disorder, recurrent severe without psychotic features (2) Heart failure: Status: Acute Code(s): I50.9 - Heart failure, unspecified (3) Osteoarthritis: Status: Acute Code(s): M19.90 - Unspecified osteoarthritis, unspecified site (4) Thyroid nodule: Status: Acute Code(s): E04.1 - Nontoxic single thyroid nodule Assessment and Plan: TSH 0.23, Free T4 1.06 recommended to have another biopsy. (5) HTN (hypertension): Status: Acute Code(s): I10 - Essential (primary) hypertension (6) GERD (gastroesophageal reflux disease): Status: Acute Code(s): K21.9 - Gastro-esophageal reflux disease without esophagitis Plan Mrs. Nicholas is a 74 year-old woman who was brought via EMS to [facility] ED after falling down the stairs. She sustained a right trochanteric fracture, under went repair on 11/04/2024. She reported this was a suicide attempt. She is vague about events leading to suicide attempt. She declines to talk about her depression and provide more details about it. She does denied any plan or intent to harm herself at this moment but also reports feeling depressed and being in a worse situation than prior to suicide attempt. She was started on sertraline while at [facility]. Sertraline was titrated to 100mg po daily. She does have hx of IBS with diarrhea. She reports increase loose stools and although she suspects may be due to feeding with lactose, also consider exacerbation of IBS related loose stools with sertraline. She reports no improvement so far in terms of depression with current medications. PLAN 1. Admit to S1, CV, 5 mins checks 12/03 - unsure why sertraline has not been changed over to other med given diarrhea/colitis ? will discuss with pt tomorrow- otherwise ctp - change omeprazole to famotidine due to hx allergy- though pt does not remember the allergy- 12/04 -PT consult, GI consult, further consideration about changing ssri, change enteric feeding rate- 12/05 pt does present with slightly brighter and more willing to engage in treatment from multidisciplinary team. awaiting GI consult. Reason for continued inpatient stay Substantial Risk for: inability to function Time Spent With Patient Time: Total time managing care of this patient today ____ minutes.
[2024-12-05] MEDS: Nystatin Powder 15 GM BOTTLE 1 APPL TOPICAL ×2 (09:22→23:34)
[2024-12-05] MEDS: Famotidine 20 MG TABLET G-TUBE ×2 (09:23→20:54)
[2024-12-05] MEDS: Sertraline HCL 100 MG TABLET G-TUBE (09:23)
[2024-12-05] MEDS: Metoprolol Tartrate 12.5 MG HALFTAB G-TUBE ×2 (09:23→20:53)
[2024-12-05] MEDS: Loperamide HCl Oral Liquid 2 MG/15 ML LIQUID 4 MG G-TUBE ×3 (11:28→20:54)
--- NOTE | 2024-12-05 14:05 | MHC.SL.SWA ---
Speech Pathologist Impression: Dysphagia complicated by physiological and perceptual functioning Risk of Aspiration Due to: Dysphasia Diet Status: Liquid Consistency and Strategies for Safe Swallow: Liquid Intake Recommendation: Thin Liquid Intake Strategies: Small Sips Solid Food Consistency: Dietary Recommendations: Pureed (NDD1) Additional Modifications to Solid Foods: Prior Bedside Swallow Evaluation Note: 'Patient is receiving main nutrition through PEG tube feeds. Patient was able to swallow small amount of thin consistency (half teaspoon jell-o, ice chips) with no overt s/s of aspiration. Patient held bolus in her mouth and then swallowed after a mild delay. No coughing, throat clearing, or change in voice was observed. Patient demonstrated good oral clearance. Patient reported being unable to swallow. When GAS ATTENDANT inquired about patient's history w/ GAS ATTENDANT, she reported having an allergy to barium and also denied having a barium swallow study done in the past. Notes in the EMR indicated patient was previously cleared by GAS ATTENDANT to have purees, but would not take any oral intake. Patient became upset when discussing observations made with this exam, as laryngeal elevation was palpated with WFL excursion of movement. Patient did expectorate a very small amount of phlegm, was not tinged with jell-o color. Patient reported history of reflux as well. Patient is very fearful and not likely to accept PO, GAS ATTENDANT to continue to follow to re-assess swallow and provide education and encouragement. Communicated observations w/ MD & RD.' Oral Medication Intake: NPO Please contact the pharmacy regarding appropriate crushable or liquid drug formulations that are available whenever modified delivery is recommended. Compensatory Strategies and Precautions to be Taken for Safe Swallow: Sitting Upright (90 deg) Small Bites and Sips Alternate Liquids/Solids Rate of Ingestion Change Supervision While Eating and Drinking for Safe Swallow: Intermittent Supervision Foods to Avoid: Swallowing Recommended Treatments: Compens. Strategy Educat. Recommendation for Speech: Inpatient Speech Therapy Comment: Pt seen for dysphagia treatment, pt reported she has had hx of dysphagia characterized by inability to eat hard/solid foods and persistent globus sensation. Pt provided with education on physiological function of swallow, airway protection and suggested strategies to reduce anxiety around dysphagia. Pt had a FEES at last hospital, noting 'she said everything was ok'. RNs consulted with GAS ATTENDANT. Pt has PEG for nutrition. Pt tolerated purees and thins without overt s/s of aspiration. Pt prefers loose puree, GAS ATTENDANT recc NDD1 with thin liquids, requested RD consult as pt nutritional needs primarily met throug tube feeds. Frequency/Duration: Date Range for Service Req: Timeline to reassess: Technical Communication Teacher Clinican/Clinical Fellow: No Supervisory Statement: I have reviewed and agree with the student/clinical fellow's documentation: N/A Speech Language Pathologist: Radha Bustamante M.S., CCC-GAS ATTENDANT
--- NOTE | 2024-12-05 15:11 | MHC.CLN ---
F/U PER WOUND RN, SKIN WITH MASD TO SACRUM, NOT PRESSURE INJURY. PATIENT CONCERNED WITH LOOSE STOOL/DIARRHEA AND ATTRIBUTES THAT TO IBS. REPORTS THAT IBS WITH DIARRHEA HAD BEEN A CONCERN PRIOR TO HOSPITALIZATIONS. APPEARS TO BE TOLERATING CURRENT TUBE FEEDING. RECOMMEND CONTINUE OSMOLITE 1.5 TF BOLUS 300ML Q 6 HRS WITH 240ML FREE WATER FLUSHES Q 8 HRS TO PROVIDE 1800KCALS TOTAL (28KCALS/KG), 75G PROTEIN (1.2G/KG), 2092ML TOTAL WATER FROM FORMULA AND FLUSHES DO NOT COMBINE FORMULA AND FLUSHES AT SAME TIME. MONITOR TOLERANCE AND LYTES. REPORTED TO THIS OFFICE ADMINISTRATIVE ASSISTANT THAT SHE HAD ONLY 2 BOTTLES OF DOTTY FARM TUBE FEEDING AND CANNOT SAY THAT GI SYMPTOMS IMPROVED WITH THAT PRODUCT. SEEN BY FEEDER/FOLDER TODAY WITH DIET REC FOR PUREE WITH THIN LIQUIDS. DISCUSSED DIET WITH PATIENT. AGREED TO SOME PUREE FOODS FOR DINNER TONIGHT. SELECTED SCRAMBLED EGGS AND PEARS FOR BREAKFAST. STATED THAT CAN EAT EGGS AND ALLERGY REMOVED BY RN. FOLLOW FOR PO INTAKE/DIET TOLERANCE. ADJUST TUBE FEEDING NEEDED IF PO IMPROVES.
--- NOTE | 2024-12-05 16:03 | HO.WOUND ---
Wound Consult: Follow up 74yr old?female admitted to [facility] on 11/30/24 - See progress notes and H&P for detailed history.? Wound consult follow up for sacrum.? Patient currently in recliner chair unable to asses skin however she reports some improvement noted to tenderness and pain when cleansing. Direct care nurse confirms some improvement noted. Recommend continue with Triad and Nystatin as orders - limit brief / diaper use. No new topical recommendations needed at this time. Detailed from previous assessment: Sacrum Etiology: ??MASD - IAD (Moisture Associated Skin Damage - Incontinence Associated Dermatitis) Wound Bed: red pink blanchable tissue with scattered areas of erosion and tissue loss Drainage / Odor: None noted Edges: ? Mirrored and irregular Izzy wound: ?MASD - pink intact blanchable tissue No Induration, Fluctuance or Warmth noted Pain: pain reported Goals of Treatment: ? Triad to allow for moist wound healing and to protect from friction and excess moisture Perineal area assessed for fungal dermatitis - red moist tissue with mirrored advancing boarders with satellite lesions noted. TT to Provider Xuan Saldivar NP for nystatin powder. GLORIA pump in use. Recommendations: 1. Turn and Reposition every 2 hours and as needed for patient comfort.? Use pillows or wedges to support off loading positions. 2. Off Load all bony prominences with use of pillows and heel boots if needed.? Apply Preventative foams where needed. ? 3. Monitor for incontinence and moisture control, use barrier creams when needed for prevention and treatment. 4. Provide adequate and supplemental nutrition.? 5. Continue low air loss mattress. 6. When applicable maintain blood glucose levels per Providers order. Perineal - Cleanse with PH balance wipes, pat dry with soft cloth.? Apply antifungal power to assist with moisture management.? Be sure to dust of excess powder to prevent caking on skin and in folds. Apply per provider orders. Apply thin layer of barrier cream to affected area.? Apply twice daily and Reapply thin layer PRN after each episode of incontinence. Sacrum - Off Load Pressure with Q2 hr turns and use of pillows - Cleanse with PH balance spray or wipes, pat dry. ?Apply thin layer of Triad to wound bed - only pat and dab no scrub and rub when soiling occurs. Reapply thin layer PRN after each episode of incontinence. Re-consult wound care Nurse for wound deterioration or wound changes.
[2024-12-05] MEDS: Enoxaparin Sodium 40 MG/0.4 ML SYRINGE SUBCUT (17:23)
--- NOTE | 2024-12-05 19:57 | PM.EVENT ---
Event Note Date of Service: 12/05/24 Event Note: GI consult dictated. Records requested Stool studies ordered antidiarraheals scheduled. Time Spent With Patient Time: Total time managing care of this patient today ____ minutes.
[2024-12-05 20:12] VITALS: BP 113/56; PULSE 92; RESP 15; TEMP 35.5; O2SAT 96
[2024-12-05] MEDS: Mirtazapine 7.5 MG TABLET G-TUBE (20:54)
[2024-12-06 02:55] LABS: Leukocytes Stool Qualitative NEGATIVE (NEGATIVE)
--- NOTE | 2024-12-06 03:20 | CONS_ITS ---
DATE OF SERVICE: 12/05/2024 REFERRING PHYSICIAN: Aline Christianson MD REASON FOR CONSULTATION: Evaluate enteral feeds? Appropriate substrate, patient with diarrhea, bowel dist. HISTORY OF PRESENT ILLNESS: The patient is a pleasant 74-year-old woman who is admitted to the geriatric psychiatry unit on December 01 with depression. Her emergency room, inpatient, and outpatient notes are reviewed in detail. She had a G-tube placed in November because of difficulty swallowing. Those records are not completely available but will be obtained. She describes a long history of irritable bowel syndrome with diarrhea predominance and has been given Imodium 4 mg 3 times daily since her admission here, which she feels is helping somewhat. This has been given t.i.d. No records of colonoscopy reports are available at this time. C diff testing has been negative. PAST MEDICAL HISTORY: 1. Right breast cancer. 2. Hypertension. 3. Gastroesophageal reflux disease. 4. Hip and tibial plateau fractures on the right following trauma. 5. Pulmonary embolism. 6. DVT. 7. Dysphagia. 8. Hyperlipidemia. 9. Thyroid nodule. CURRENT MEDICATIONS: Her current medication list is reviewed in the chart. ALLERGIES: MULTIPLE MEDICATION AND NON MEDICATION ALLERGIES ARE REVIEWED. FAMILY HISTORY: This is reviewed with the patient and is negative for GI malignancy in the upper GI tract. SOCIAL HISTORY: She denies tobacco, alcohol, or substance abuse. REVIEW OF SYSTEMS: SKIN: No pruritus. HEENT: Negative. CARDIOPULMONARY: No shortness of breath or chest pain. GASTROINTESTINAL: As above. GENITOURINARY: Negative. NEUROPSYCHIATRIC: Negative. PHYSICAL EXAMINATION: GENERAL: Shows a pleasant female, lying comfortably in bed. VITAL SIGNS: Reviewed in electronic medical record and are stable. SKIN: Anicteric. HEENT: Shows no scleral icterus. NECK: Without lymphadenopathy or thyromegaly. LUNGS: Clear. HEART: Shows a regular rate and rhythm. S1, S2. No murmur. ABDOMEN: Soft without focal masses or tenderness. Bowel sounds are present. The G-tube site appears intact. There is no drainage. EXTREMITIES: Without edema. LABORATORY DATA: Reviewed. IMPRESSION: Diarrhea. At this time, I would recommend obtaining stool specimens for routine testing including GI panel. C diff has already been evaluated and is negative. I would recommend continuing loperamide 4 mg t.i.d. and holding this if she has constipation, we will review her outside records from her upper endoscopy and make further recommendations pending these results. Thanks for asking me to see her. I will follow her in the hospital with you. MD SADE Joel/WENDY / [phone]
[2024-12-06 08:36] LABS: Basophils Percent Auto 0.6 % (0-2); Eosinophils Absolute Auto 0.2 X10*3/uL (0.0-0.4); Eosinophils Percent Auto 2.4 % (0-4); Hematocrit 32.5 % (37.0-47.0); Hemoglobin 10.1 g/dl (12.0-16.0); Imm Gran Abs Auto 0.07 X10*3/uL (0.00-0.03); Lymphocytes Absolute Auto 1.2 X10*3/uL (1.2-4.9); Lymphocytes Percent Auto 17.4 % (20-40); MANUAL DIFF FLAG NO; Mean Corpuscular HGB Conc 31.1 g/dl (31.0-35.0); Mean Platelet Volume 10.5 fL (9.4-12.3); Monocytes Absolute Auto 0.5 X10*3/uL (0.1-1.2); Monocytes Percent Auto 8.1 % (2-11); Neutrophils Absolute Auto 4.7 x10*3/uL (2.0-8.3); Neutrophils Percent Auto 70.5 % (45-73); Platelet Count 224 X10*3/uL (160-400); Red Blood Count 3.61 X10*6/uL (4.20-5.50); Red Cell Distribution Width 17.6 % (11.0-16.0); White Blood Count 6.7 X10*3/uL (4.8-10.8)
[2024-12-06 08:59] LABS: Alanine Aminotransferase 19 U/L (0-31); Alkaline Phosphatase 174 U/L (39-117); Anion Gap 12 (12-20); Aspartate Amino Transferase 20 U/L (5-31); Bilirubin Total 0.5 mg/dL (0.0-1.0); Blood Urea Nitrogen 20 mg/dL (9-16); Calcium 9.3 mg/dL (8.4-10.2); Carbon Dioxide 30 mmol/L (22-29); Chloride 103 mmol/L (96-108); Creatinine Clr Calc Pharmacy 80.3; Estimated Glomerular Filt Rate > 60; Glucose Random 137 mg/dL (60-115); Potassium 3.8 mmol/L (3.3-5.1); Sodium 141 mmol/L (135-145); Total Protein 6.3 g/dL (6.5-8.0)
[2024-12-06 09:19] VITALS: BP 125/60; PULSE 80; RESP 14; TEMP 36.4; O2SAT 96
[2024-12-06] MEDS: Metoprolol Tartrate 12.5 MG HALFTAB G-TUBE ×2 (09:20→21:28)
[2024-12-06] MEDS: Sertraline HCL 100 MG TABLET G-TUBE (09:20)
[2024-12-06] MEDS: Famotidine 20 MG TABLET G-TUBE ×2 (09:20→21:26)
[2024-12-06] MEDS: Loperamide HCl Oral Liquid 2 MG/15 ML LIQUID 4 MG G-TUBE ×3 (09:20→21:26)
--- NOTE | 2024-12-06 09:21 | P.PNPSI_ITS ---
Subjective Subjective Date of Service: 12/06/24 Reason For Visit: major depressive d/o Subjective Notes: Conditional Voluntary Interim History: Pt slept through the night. She reports excruciating pain on right leg. She does look in physical distress. Given dose of oxycodone with good effect. She slept most of the day, in her room. Later was difficult to have longer conversation due to somnolence. She does continue to report that she wants to get better and denies SI. She declined meeting with PT/OT. Pending conversation about changing antidepressant. Review of Systems Review of Systems No chest pain. No SOB back, knee and hip pain Mental Status Exam Mental Status Exam Narrative: Appearance: wearing hospital gown, MO, in some physical pain due to fractures, hip surgery and chronic osteoarthritis Behavior: guarded, superficially cooperative Psychomotor: lower spasm-like movement of legs, no tremors Speech: clear, normal rate/rhythm/volume, spontaneous TP: linear TC: wanting to see her family Mood: in pain Affect: congruent SI: denies HI: denies VH/AH: denies Delusions: no overt signs Insight/judgment: poor x 2. Memory/cog: alert, oriented x 3. pending further cognitive/memory assessments. Diagnostics Vital Signs (24Hr): Vital Signs - 24 hr 12/05/24 20:12 12/06/24 09:19 Temperature 96 F L 97.6 F Pulse Rate 92 80 Respiratory Rate 15 14 Blood Pressure 113/56 L 125/60 Pulse Oximetry 96 96 Oxygen Delivery Method Room Air BMI result Body Mass Index 27.4 Labs 12/06/24 07:38 12/06/24 07:38 Labs: Laboratory Results - last 48 hr 12/04/24 12/05/24 12/06/24 22:00 00:59 07:38 WBC 6.7 RBC 3.61 L Hgb 10.1 L Hct 32.5 L MCV 90.0 MCH 28.0 MCHC 31.1 RDW 17.6 H Plt Count 224 MPV 10.5 Immature Gran % (Auto) 1.0 H Neut % (Auto) 70.5 Lymph % (Auto) 17.4 L [place] % (Auto) 8.1 Eos % (Auto) 2.4 Baso % (Auto) 0.6 Lymph # (Auto) 1.2 [place] # (Auto) 0.5 Eos # (Auto) 0.2 Baso # (Auto) 0.0 Abs Immat Gran (auto) 0.07 H Absolute Neuts (auto) 4.7 Absolute Nucleated RBC 0.000 Nucleated RBC % (auto) 0.0 Sodium 141 Potassium 3.8 Chloride 103 Carbon Dioxide 30 H Anion Gap 12 BUN 20 H Creatinine 0.64 Estim Creat Clear Calc 80.3 Estimated GFR > 60 Random Glucose 137 H Calcium 9.3 Total Bilirubin 0.5 AST 20 ALT 19 Alkaline Phosphatase 174 H Total Protein 6.3 L Albumin 3.0 L Stool Leukocytes, Qual NEGATIVE C. difficile Tox B Gene NEGATIVE Medications Medications Current Medications Acetaminophen (Acetaminophen 325 Mg Tablet) 650 mg G-TUBE Q6H PRN PRN Reason: Headache/Pain, Scale 1-10 Al Hydroxide/Mg Hydroxide (Magnesium Hydrox/Alum Hydrox 30 Ml Oral.Susp) 30 ml G-TUBE Q6H PRN PRN Reason: Heartburn/Nausea Enoxaparin Sodium (Enoxaparin Sodium 40 Mg/0.4 Ml Syringe) 40 mg SUBCUT Q24H [facility] Last Admin: 12/05/24 17:23 Dose: 40 mg Famotidine (Famotidine 20 Mg Tablet) 20 mg G-TUBE BID [facility] Last Admin: 12/05/24 20:54 Dose: 20 mg Hydroxyzine HCl (Hydroxyzine Hcl 25 Mg Tablet) 25 mg G-TUBE Q6H PRN PRN Reason: mild anxiety Last Admin: 12/04/24 21:35 Dose: 25 mg Loperamide HCl (Loperamide Hcl Oral Liquid 2 Mg/15 Ml Liquid) 4 mg G-TUBE TID [facility] Last Admin: 12/05/24 20:54 Dose: 4 mg Magnesium Hydroxide (Milk Of Magnesia 30 Ml Oral.Susp) 30 ml G-TUBE DAILY PRN PRN Reason: Constipation Metoprolol Tartrate (Metoprolol Tartrate 12.5 Mg Halftab) 12.5 mg G-TUBE BID [facility]; Protocol Last Admin: 12/05/24 20:53 Dose: 12.5 mg Mirtazapine (Mirtazapine 7.5 Mg Tablet) 7.5 mg G-TUBE BEDTIME [facility] Last Admin: 12/05/24 20:54 Dose: 7.5 mg Nicotine Polacrilex (Nicotine Polacrilex 2 Mg Gum) 4 mg BUCCAL Q2H PRN PRN Reason: Nicotine Cravings Nystatin (Nystatin Powder 15 Gm Bottle) 1 appl TOPICAL BID [facility]; Protocol Last Admin: 12/05/24 23:34 Dose: 1 appl Oxycodone HCl (Oxycodone Hcl Immed Release 5 Mg Tablet) 5 mg PO Q6H PRN PRN Reason: Pain, Severe (Pain Scale 7-10) Last Admin: 12/04/24 21:35 Dose: 5 mg Sertraline HCl (Sertraline Hcl 100 Mg Tablet) 100 mg G-TUBE DAILY [facility] Last Admin: 12/05/24 09:23 Dose: 100 mg Trazodone HCl (Trazodone Hcl 50 Mg Tablet) 50 mg G-TUBE BEDTIME MRX1 PRN PRN Reason: Insomnia Last Admin: 12/04/24 21:36 Dose: 50 mg Allergies Allergies Allergy/AdvReac Type Severity Reaction Status Date / Time apple Allergy Unknown Verified 11/30/24 22:50 cefuroxime Allergy Unknown Verified 11/30/24 22:50 cephalexin [From Keflex] Allergy Unknown Verified 11/30/24 22:50 ciprofloxacin Allergy Unknown Verified 11/30/24 22:50 clarithromycin Allergy Unknown Verified 11/30/24 22:50 codeine Allergy Unknown Verified 11/30/24 22:50 doxycycline Allergy Unknown Verified 11/30/24 22:50 erythromycin base Allergy Unknown Verified 11/30/24 22:50 furosemide Allergy Unknown Verified 11/30/24 22:50 hydromorphone [From Dilaudid] Allergy Unknown Verified 11/30/24 22:50 indomethacin Allergy Unknown Verified 11/30/24 22:50 Iodinated Contrast Media Allergy Unknown Verified 11/30/24 22:50 iodine Allergy Unknown Verified 11/30/24 22:50 nitrofurantoin Allergy Unknown Verified 11/30/24 22:50 omeprazole Allergy Unknown Verified 11/30/24 22:50 penicillin G Allergy Unknown Verified 11/30/24 22:50 Penicillins Allergy Unknown Verified 11/30/24 22:50 pseudoephedrine Allergy Unknown Verified 11/30/24 22:50 shellfish derived [shellfish] Allergy Unknown Verified 11/30/24 22:50 Sulfa (Sulfonamide Allergy Unknown Verified 11/30/24 22:50 Antibiotics) Assessment & Plan Assessment & Plan (1) MDD (major depressive disorder), recurrent episode, severe: Status: Acute Code(s): F33.2 - Major depressive disorder, recurrent severe without psychotic features (2) Heart failure: Status: Acute Code(s): I50.9 - Heart failure, unspecified (3) Osteoarthritis: Status: Acute Code(s): M19.90 - Unspecified osteoarthritis, unspecified site (4) Thyroid nodule: Status: Acute Code(s): E04.1 - Nontoxic single thyroid nodule Assessment and Plan: TSH 0.23, Free T4 1.06 recommended to have another biopsy. (5) HTN (hypertension): Status: Acute Code(s): I10 - Essential (primary) hypertension (6) GERD (gastroesophageal reflux disease): Status: Acute Code(s): K21.9 - Gastro-esophageal reflux disease without esophagitis Plan Mrs. Nicholas is a 74 year-old woman who was brought via EMS to [facility] ED after falling down the stairs. She sustained a right trochanteric fracture, under went repair on 11/04/2024. She reported this was a suicide attempt. She is vague about events leading to suicide attempt. She declines to talk about her depression and provide more details about it. She does denied any plan or intent to harm herself at this moment but also reports feeling depressed and being in a worse situation than prior to suicide attempt. She was started on sertraline while at [facility]. Sertraline was titrated to 100mg po daily. She does have hx of IBS with diarrhea. She reports increase loose stools and although she suspects may be due to feeding with lactose, also consider exacerbation of IBS related loose stools with sertraline. She reports no improvement so far in terms of depression with current medications. PLAN 1. Admit to S1, CV, 5 mins checks 12/03 - unsure why sertraline has not been changed over to other med given diarrhea/colitis ? will discuss with pt tomorrow- otherwise ctp - change omeprazole to famotidine due to hx allergy- though pt does not remember the allergy- 12/04 -PT consult, GI consult, further consideration about changing ssri, change enteric feeding rate- 12/05 pt does present with slightly brighter and more willing to engage in treatment from multidisciplinary team. awaiting GI consult. 12/06 continue tx. Reason for continued inpatient stay Substantial Risk for: inability to function Time Spent With Patient Time: Total time managing care of this patient today ____ minutes.
[2024-12-06] MEDS: oxyCODONE HCl Immed Release 5 MG TABLET PO (11:12)
[2024-12-06] MEDS: Enoxaparin Sodium 40 MG/0.4 ML SYRINGE SUBCUT (18:22)
[2024-12-06 21:10] VITALS: BP 115/59; PULSE 76; RESP 18; TEMP 36.8; O2SAT 96
[2024-12-06] MEDS: Mirtazapine 7.5 MG TABLET G-TUBE (21:26)
[2024-12-07 08:36] VITALS: BP 111/56; PULSE 82; RESP 16; TEMP 36.9; O2SAT 94
[2024-12-07] MEDS: oxyCODONE HCl Immed Release 5 MG TABLET PO (08:41)
[2024-12-07] MEDS: Loperamide HCl Oral Liquid 2 MG/15 ML LIQUID 4 MG G-TUBE ×3 (08:41→21:01)
[2024-12-07] MEDS: Sertraline HCL 100 MG TABLET G-TUBE (08:42)
[2024-12-07] MEDS: Metoprolol Tartrate 12.5 MG HALFTAB G-TUBE ×2 (08:42→21:01)
[2024-12-07] MEDS: Famotidine 20 MG TABLET G-TUBE ×2 (08:42→21:01)
--- NOTE | 2024-12-07 11:29 | HO.PSYCHPN ---
Subjective Subjective Date of Service: 12/07/24 Reason For Visit: major depressive d/o Subjective Notes: Conditional Voluntary Interim History: Pt slept through the night. She does have a lot of pain and received oxydocone with good effect. She was mostly in her room. She reports feeling uncomfortable and tired. No oral intake. She denies SI/HI. but affect appears very blunted. We discussed changing antidepressant to effexor, given Gtube, would have to be IR formulation not ER Diagnostics Vital Signs (24Hr): Vital Signs - 24 hr 12/06/24 21:10 12/07/24 08:36 Temperature 98.3 F 98.5 F Pulse Rate 76 82 Respiratory Rate 18 16 Blood Pressure 115/59 L 111/56 L Pulse Oximetry 96 94 Oxygen Delivery Method Room Air Room Air BMI result Body Mass Index 27.4 Labs 12/06/24 07:38 12/06/24 07:38 Labs: Laboratory Results - last 48 hr 12/05/24 12/06/24 00:59 07:38 WBC 6.7 RBC 3.61 L Hgb 10.1 L Hct 32.5 L MCV 90.0 MCH 28.0 MCHC 31.1 RDW 17.6 H Plt Count 224 MPV 10.5 Immature Gran % (Auto) 1.0 H Neut % (Auto) 70.5 Lymph % (Auto) 17.4 L [place] % (Auto) 8.1 Eos % (Auto) 2.4 Baso % (Auto) 0.6 Lymph # (Auto) 1.2 [place] # (Auto) 0.5 Eos # (Auto) 0.2 Baso # (Auto) 0.0 Abs Immat Gran (auto) 0.07 H Absolute Neuts (auto) 4.7 Absolute Nucleated RBC 0.000 Nucleated RBC % (auto) 0.0 Sodium 141 Potassium 3.8 Chloride 103 Carbon Dioxide 30 H Anion Gap 12 BUN 20 H Creatinine 0.64 Estim Creat Clear Calc 80.3 Estimated GFR > 60 Random Glucose 137 H Calcium 9.3 Total Bilirubin 0.5 AST 20 ALT 19 Alkaline Phosphatase 174 H Total Protein 6.3 L Albumin 3.0 L Stool Leukocytes, Qual NEGATIVE Medications Medications Current Medications Acetaminophen (Acetaminophen 325 Mg Tablet) 650 mg G-TUBE Q6H PRN PRN Reason: Headache/Pain, Scale 1-10 Al Hydroxide/Mg Hydroxide (Magnesium Hydrox/Alum Hydrox 30 Ml Oral.Susp) 30 ml G-TUBE Q6H PRN PRN Reason: Heartburn/Nausea Enoxaparin Sodium (Enoxaparin Sodium 40 Mg/0.4 Ml Syringe) 40 mg SUBCUT Q24H [facility] Last Admin: 12/06/24 18:22 Dose: 40 mg Famotidine (Famotidine 20 Mg Tablet) 20 mg G-TUBE BID [facility] Last Admin: 12/07/24 08:42 Dose: 20 mg Hydroxyzine HCl (Hydroxyzine Hcl 25 Mg Tablet) 25 mg G-TUBE Q6H PRN PRN Reason: mild anxiety Last Admin: 12/04/24 21:35 Dose: 25 mg Loperamide HCl (Loperamide Hcl Oral Liquid 2 Mg/15 Ml Liquid) 4 mg G-TUBE TID [facility] Last Admin: 12/07/24 08:41 Dose: 4 mg Magnesium Hydroxide (Milk Of Magnesia 30 Ml Oral.Susp) 30 ml G-TUBE DAILY PRN PRN Reason: Constipation Metoprolol Tartrate (Metoprolol Tartrate 12.5 Mg Halftab) 12.5 mg G-TUBE BID [facility]; Protocol Last Admin: 12/07/24 08:42 Dose: 12.5 mg Mirtazapine (Mirtazapine 7.5 Mg Tablet) 7.5 mg G-TUBE BEDTIME [facility] Last Admin: 12/06/24 21:26 Dose: 7.5 mg Nicotine Polacrilex (Nicotine Polacrilex 2 Mg Gum) 4 mg BUCCAL Q2H PRN PRN Reason: Nicotine Cravings Nystatin (Nystatin Powder 15 Gm Bottle) 1 appl TOPICAL BID [facility]; Protocol Last Admin: 12/06/24 22:01 Dose: Not Given Oxycodone HCl (Oxycodone Hcl Immed Release 5 Mg Tablet) 5 mg PO Q6H PRN PRN Reason: Pain, Severe (Pain Scale 7-10) Last Admin: 12/07/24 08:41 Dose: 5 mg Sertraline HCl (Sertraline Hcl 100 Mg Tablet) 100 mg G-TUBE DAILY [facility] Last Admin: 12/07/24 08:42 Dose: 100 mg Trazodone HCl (Trazodone Hcl 50 Mg Tablet) 50 mg G-TUBE BEDTIME MRX1 PRN PRN Reason: Insomnia Last Admin: 12/04/24 21:36 Dose: 50 mg Allergies Allergies Allergy/AdvReac Type Severity Reaction Status Date / Time apple Allergy Unknown Verified 11/30/24 22:50 cefuroxime Allergy Unknown Verified 11/30/24 22:50 cephalexin [From Keflex] Allergy Unknown Verified 11/30/24 22:50 ciprofloxacin Allergy Unknown Verified 11/30/24 22:50 clarithromycin Allergy Unknown Verified 11/30/24 22:50 codeine Allergy Unknown Verified 11/30/24 22:50 doxycycline Allergy Unknown Verified 11/30/24 22:50 erythromycin base Allergy Unknown Verified 11/30/24 22:50 furosemide Allergy Unknown Verified 11/30/24 22:50 hydromorphone [From Dilaudid] Allergy Unknown Verified 11/30/24 22:50 indomethacin Allergy Unknown Verified 11/30/24 22:50 Iodinated Contrast Media Allergy Unknown Verified 11/30/24 22:50 iodine Allergy Unknown Verified 11/30/24 22:50 nitrofurantoin Allergy Unknown Verified 11/30/24 22:50 omeprazole Allergy Unknown Verified 11/30/24 22:50 penicillin G Allergy Unknown Verified 11/30/24 22:50 Penicillins Allergy Unknown Verified 11/30/24 22:50 pseudoephedrine Allergy Unknown Verified 11/30/24 22:50 shellfish derived [shellfish] Allergy Unknown Verified 11/30/24 22:50 Sulfa (Sulfonamide Allergy Unknown Verified 11/30/24 22:50 Antibiotics) Assessment & Plan Assessment & Plan (1) MDD (major depressive disorder), recurrent episode, severe: Status: Acute Code(s): F33.2 - Major depressive disorder, recurrent severe without psychotic features (2) Heart failure: Status: Acute Code(s): I50.9 - Heart failure, unspecified (3) Osteoarthritis: Status: Acute Code(s): M19.90 - Unspecified osteoarthritis, unspecified site (4) Thyroid nodule: Status: Acute Code(s): E04.1 - Nontoxic single thyroid nodule Assessment and Plan: TSH 0.23, Free T4 1.06 recommended to have another biopsy. (5) HTN (hypertension): Status: Acute Code(s): I10 - Essential (primary) hypertension (6) GERD (gastroesophageal reflux disease): Status: Acute Code(s): K21.9 - Gastro-esophageal reflux disease without esophagitis Plan Mrs. Nicholas is a 74 year-old woman who was brought via EMS to [facility] ED after falling down the stairs. She sustained a right trochanteric fracture, under went repair on 11/04/2024. She reported this was a suicide attempt. She is vague about events leading to suicide attempt. She declines to talk about her depression and provide more details about it. She does denied any plan or intent to harm herself at this moment but also reports feeling depressed and being in a worse situation than prior to suicide attempt. She was started on sertraline while at [facility]. Sertraline was titrated to 100mg po daily. She does have hx of IBS with diarrhea. She reports increase loose stools and although she suspects may be due to feeding with lactose, also consider exacerbation of IBS related loose stools with sertraline. She reports no improvement so far in terms of depression with current medications. PLAN 1. Admit to S1, CV, 5 mins checks 12/03 - unsure why sertraline has not been changed over to other med given diarrhea/colitis ? will discuss with pt tomorrow- otherwise ctp - change omeprazole to famotidine due to hx allergy- though pt does not remember the allergy- 12/04 -PT consult, GI consult, further consideration about changing ssri, change enteric feeding rate- 12/05 pt does present with slightly brighter and more willing to engage in treatment from multidisciplinary team. awaiting GI consult. 12/06 continue tx. 12/07 lower sertraline to 50mg Gtube daily, start effexor IR 25mg Gtube Reason for continued inpatient stay Substantial Risk for: inability to function Time Spent With Patient Time: Total time managing care of this patient today ____ minutes.
[2024-12-07] MEDS: Nystatin Powder 15 GM BOTTLE 1 APPL TOPICAL (13:18)
--- NOTE | 2024-12-07 13:59 | MHC.SLORD ---
Speech Language Pathology Order Status: RNs consulted. Pt tolerating minimal amounts of PO (purees/thins) for preferred items. Pt continues to experience moderate GI sypmptoms, pending GI consult at this time. Pt refused PO with PHARMACY CASHIER today. Due to nature of pt complaints, PHARMACY CASHIER intervention is not needed at this time. Pt has alternative nutrition, PHARMACY CASHIER available for further assessment/treatmnent when indicated.
--- NOTE | 2024-12-07 14:00 | MHC.CLN ---
F/U PER WOUND RN, SKIN WITH MASD TO SACRUM, NOT PRESSURE INJURY. APPEARS TO BE TOLERATING CURRENT TUBE FEEDING. RECOMMEND CONTINUE OSMOLITE 1.5 TF BOLUS 300ML Q 6 HRS WITH 240ML FREE WATER FLUSHES Q 8 HRS TO PROVIDE 1800KCALS TOTAL (28KCALS/KG), 75G PROTEIN (1.2G/KG), 2092ML TOTAL WATER FROM FORMULA AND FLUSHES DO NOT COMBINE FORMULA AND FLUSHES AT SAME TIME. MONITOR TOLERANCE AND LYTES. ADDED PUREE DIET PER LEGAL SUPPORT ANALYST REC 12/05. PATIENT DESCRIBED TURKEY THAT SHE ATE (?12/05 DINNER). HAS NOT BEEN ACCEPTING OTHER MEALS. CONTINUE TO PROVIDE FOOD PREFERENCES ABLE. FOLLOW FOR PO INTAKE/DIET TOLERANCE. ADJUST TUBE FEEDING NEEDED IF PO IMPROVES.
[2024-12-07] MEDS: Enoxaparin Sodium 40 MG/0.4 ML SYRINGE SUBCUT (19:01)
[2024-12-07 20:00] VITALS: BP 131/58; PULSE 75; RESP 18; TEMP 36.6; O2SAT 98
[2024-12-07] MEDS: Mirtazapine 7.5 MG TABLET G-TUBE (21:01)
[2024-12-07] MEDS: traZODone HCL 50 MG TABLET G-TUBE (21:01)
[2024-12-07] MEDS: hydrOXYzine HCL 25 MG TABLET G-TUBE (21:02)
[2024-12-08] MEDS: oxyCODONE HCl Immed Release 5 MG TABLET PO (03:30)
[2024-12-08 08:00] VITALS: BP 118/55; PULSE 71; RESP 18; TEMP 36.5; O2SAT 96
[2024-12-08] MEDS: Famotidine 20 MG TABLET G-TUBE ×2 (09:09→20:43)
[2024-12-08] MEDS: Sertraline HCL 50 MG TABLET G-TUBE (09:09)
[2024-12-08] MEDS: Metoprolol Tartrate 12.5 MG HALFTAB G-TUBE ×2 (09:09→20:44)
[2024-12-08] MEDS: Loperamide HCl Oral Liquid 2 MG/15 ML LIQUID 4 MG G-TUBE ×3 (09:10→20:43)
[2024-12-08] MEDS: Nystatin Powder 15 GM BOTTLE 1 APPL TOPICAL ×2 (09:33→20:46)
--- NOTE | 2024-12-08 10:39 | HO.PSYCHPN ---
Subjective Subjective Date of Service: 12/08/24 Reason For Visit: major depressive d/o Interim History: Pt slept through the night. She reports feeling depressed, denies SI, but expressed sense of shame, even about her body. She reports pain. Although she reports she wants to be home and feel better, I do think she is to some degree minimizing degree of depression and talking about it even if not suicidal. Review of Systems Review of Systems No chest pain. No SOB back, knee and hip pain Mental Status Exam Mental Status Exam Narrative: Appearance: wearing hospital gown, [place], in some physical pain due to fractures, hip surgery and chronic osteoarthritis Behavior: guarded, superficially cooperative Psychomotor: lower spasm-like movement of legs, no tremors Speech: clear, normal rate/rhythm/volume, spontaneous TP: linear TC: wanting to see her family Mood: in pain Affect: congruent SI: denies HI: denies VH/AH: denies Delusions: no overt signs Insight/judgment: poor x 2. Memory/cog: alert, oriented x 3. pending further cognitive/memory assessments. Diagnostics Vital Signs (24Hr): Vital Signs - 24 hr 12/07/24 20:00 12/08/24 08:00 Temperature 97.9 F 97.7 F Pulse Rate 75 71 Respiratory Rate 18 18 Blood Pressure 131/58 L 118/55 L Pulse Oximetry 98 96 Oxygen Delivery Method Room Air Room Air BMI result Body Mass Index 27.4 Labs 12/06/24 07:38 12/06/24 07:38 Medications Medications Current Medications Acetaminophen (Acetaminophen 325 Mg Tablet) 650 mg G-TUBE Q6H PRN PRN Reason: Headache/Pain, Scale 1-10 Al Hydroxide/Mg Hydroxide (Magnesium Hydrox/Alum Hydrox 30 Ml Oral.Susp) 30 ml G-TUBE Q6H PRN PRN Reason: Heartburn/Nausea Enoxaparin Sodium (Enoxaparin Sodium 40 Mg/0.4 Ml Syringe) 40 mg SUBCUT Q24H [facility] Last Admin: 12/07/24 19:01 Dose: 40 mg Famotidine (Famotidine 20 Mg Tablet) 20 mg G-TUBE BID [facility] Last Admin: 12/08/24 09:09 Dose: 20 mg Hydroxyzine HCl (Hydroxyzine Hcl 25 Mg Tablet) 25 mg G-TUBE Q6H PRN PRN Reason: mild anxiety Last Admin: 12/07/24 21:02 Dose: 25 mg Loperamide HCl (Loperamide Hcl Oral Liquid 2 Mg/15 Ml Liquid) 4 mg G-TUBE TID [facility] Last Admin: 12/08/24 09:10 Dose: 4 mg Magnesium Hydroxide (Milk Of Magnesia 30 Ml Oral.Susp) 30 ml G-TUBE DAILY PRN PRN Reason: Constipation Metoprolol Tartrate (Metoprolol Tartrate 12.5 Mg Halftab) 12.5 mg G-TUBE BID [facility]; Protocol Last Admin: 12/08/24 09:09 Dose: 12.5 mg Mirtazapine (Mirtazapine 7.5 Mg Tablet) 7.5 mg G-TUBE BEDTIME [facility] Last Admin: 12/07/24 21:01 Dose: 7.5 mg Nicotine Polacrilex (Nicotine Polacrilex 2 Mg Gum) 4 mg BUCCAL Q2H PRN PRN Reason: Nicotine Cravings Nystatin (Nystatin Powder 15 Gm Bottle) 1 appl TOPICAL BID [facility]; Protocol Last Admin: 12/08/24 09:33 Dose: 1 appl Oxycodone HCl (Oxycodone Hcl Immed Release 5 Mg Tablet) 5 mg PO Q6H PRN PRN Reason: Pain, Severe (Pain Scale 7-10) Last Admin: 12/08/24 03:30 Dose: 5 mg Sertraline HCl (Sertraline Hcl 50 Mg Tablet) 50 mg G-TUBE DAILY [facility] Last Admin: 12/08/24 09:09 Dose: 50 mg Trazodone HCl (Trazodone Hcl 50 Mg Tablet) 50 mg G-TUBE BEDTIME MRX1 PRN PRN Reason: Insomnia Last Admin: 12/07/24 21:01 Dose: 50 mg Venlafaxine HCl (Venlafaxine Hcl 25 Mg Tablet) 25 mg G-TUBE DAILY [facility] Allergies Allergies Allergy/AdvReac Type Severity Reaction Status Date / Time apple Allergy Unknown Verified 11/30/24 22:50 cefuroxime Allergy Unknown Verified 11/30/24 22:50 cephalexin [From Keflex] Allergy Unknown Verified 11/30/24 22:50 ciprofloxacin Allergy Unknown Verified 11/30/24 22:50 clarithromycin Allergy Unknown Verified 11/30/24 22:50 codeine Allergy Unknown Verified 11/30/24 22:50 doxycycline Allergy Unknown Verified 11/30/24 22:50 erythromycin base Allergy Unknown Verified 11/30/24 22:50 furosemide Allergy Unknown Verified 11/30/24 22:50 hydromorphone [From Dilaudid] Allergy Unknown Verified 11/30/24 22:50 indomethacin Allergy Unknown Verified 11/30/24 22:50 Iodinated Contrast Media Allergy Unknown Verified 11/30/24 22:50 iodine Allergy Unknown Verified 11/30/24 22:50 nitrofurantoin Allergy Unknown Verified 11/30/24 22:50 omeprazole Allergy Unknown Verified 11/30/24 22:50 penicillin G Allergy Unknown Verified 11/30/24 22:50 Penicillins Allergy Unknown Verified 11/30/24 22:50 pseudoephedrine Allergy Unknown Verified 11/30/24 22:50 shellfish derived [shellfish] Allergy Unknown Verified 11/30/24 22:50 Sulfa (Sulfonamide Allergy Unknown Verified 11/30/24 22:50 Antibiotics) Assessment & Plan Assessment & Plan (1) MDD (major depressive disorder), recurrent episode, severe: Status: Acute Code(s): F33.2 - Major depressive disorder, recurrent severe without psychotic features (2) Heart failure: Status: Acute Code(s): I50.9 - Heart failure, unspecified (3) Osteoarthritis: Status: Acute Code(s): M19.90 - Unspecified osteoarthritis, unspecified site (4) Thyroid nodule: Status: Acute Code(s): E04.1 - Nontoxic single thyroid nodule Assessment and Plan: TSH 0.23, Free T4 1.06 recommended to have another biopsy. (5) HTN (hypertension): Status: Acute Code(s): I10 - Essential (primary) hypertension (6) GERD (gastroesophageal reflux disease): Status: Acute Code(s): K21.9 - Gastro-esophageal reflux disease without esophagitis Plan Mrs. Nicholas is a 74 year-old woman who was brought via EMS to [facility] ED after falling down the stairs. She sustained a right trochanteric fracture, under went repair on 11/04/2024. She reported this was a suicide attempt. She is vague about events leading to suicide attempt. She declines to talk about her depression and provide more details about it. She does denied any plan or intent to harm herself at this moment but also reports feeling depressed and being in a worse situation than prior to suicide attempt. She was started on sertraline while at [facility]. Sertraline was titrated to 100mg po daily. She does have hx of IBS with diarrhea. She reports increase loose stools and although she suspects may be due to feeding with lactose, also consider exacerbation of IBS related loose stools with sertraline. She reports no improvement so far in terms of depression with current medications. PLAN 1. Admit to S1, CV, 5 mins checks 12/03 - unsure why sertraline has not been changed over to other med given diarrhea/colitis ? will discuss with pt tomorrow- otherwise ctp - change omeprazole to famotidine due to hx allergy- though pt does not remember the allergy- 12/04 -PT consult, GI consult, further consideration about changing ssri, change enteric feeding rate- 12/05 pt does present with slightly brighter and more willing to engage in treatment from multidisciplinary team. awaiting GI consult. 12/06 continue tx. 12/07 lower sertraline to 50mg Gtube daily, start effexor IR 25mg Gtube 12/08 continue tx. will titrate effexor gradually Reason for continued inpatient stay Substantial Risk for: harm to self and inability to function Time Spent With Patient Time: Total time managing care of this patient today ____ minutes.
[2024-12-08] MEDS: Venlafaxine HCL 25 MG TABLET G-TUBE (10:46)
[2024-12-08] MEDS: Enoxaparin Sodium 40 MG/0.4 ML SYRINGE SUBCUT (16:20)
[2024-12-08 20:00] VITALS: BP 107/51; PULSE 80; RESP 18; TEMP 36.5; O2SAT 95
[2024-12-08] MEDS: Mirtazapine 7.5 MG TABLET G-TUBE (20:45)
[2024-12-09 08:15] VITALS: BP 120/71; PULSE 72; TEMP 36.2; O2SAT 98
[2024-12-09] MEDS: Metoprolol Tartrate 12.5 MG HALFTAB G-TUBE ×2 (08:15→21:34)
[2024-12-09] MEDS: Loperamide HCl Oral Liquid 2 MG/15 ML LIQUID 4 MG G-TUBE ×3 (08:15→21:34)
[2024-12-09] MEDS: Famotidine 20 MG TABLET G-TUBE ×2 (08:16→21:34)
[2024-12-09] MEDS: Sertraline HCL 50 MG TABLET G-TUBE (08:16)
[2024-12-09] MEDS: Venlafaxine HCL 25 MG TABLET G-TUBE (09:00)
--- NOTE | 2024-12-09 09:02 | HO.PSYCHPN ---
Subjective Subjective Date of Service: 12/09/24 Reason For Visit: major depressive d/o Subjective Notes: Conditional Voluntary Interim History: Pt slept through the night. Pt continues to present as withdrawn. She was out of her room today. She declined to meet with ADMINISTRATION PHYSICIAN Dr. Vigil to assess swelling of left labia. She reports she is not able to participate in PT due to pain. She reports she feels as though people don't believe her when she says she is in pain. Pt seems not fully forthcoming about her own feelings of anger and depression. She does denied SI, which believe to be the case. She also reports she has not had puree food because it has not been offered but when offered, she declines. we discussed increasing effexor. Review of Systems Review of Systems No chest pain. No SOB back, knee and hip pain Mental Status Exam Mental Status Exam Narrative: Appearance: wearing hospital gown, [place], in some physical pain due to fractures, hip surgery and chronic osteoarthritis Behavior: guarded, superficially cooperative Psychomotor: lower spasm-like movement of legs, no tremors Speech: clear, normal rate/rhythm/volume, spontaneous TP: linear TC: wanting to see her family Mood: in pain Affect: congruent SI: denies HI: denies VH/AH: denies Delusions: no overt signs Insight/judgment: poor x 2. Memory/cog: alert, oriented x 3. pending further cognitive/memory assessments. Diagnostics Vital Signs (24Hr): Vital Signs - 24 hr 12/08/24 20:00 12/09/24 08:15 Temperature 97.7 F 97.1 F Pulse Rate 80 72 Respiratory Rate 18 Blood Pressure 107/51 L 120/71 Pulse Oximetry 95 98 Oxygen Delivery Method Room Air Room Air BMI result Body Mass Index 27.4 Labs 12/06/24 07:38 12/06/24 07:38 Labs: Laboratory Results - last 48 hr 12/07/24 11:15 Stl C. cayetanensis PCR Cancelled Stool Rotavirus A PCR Cancelled Stl Adenov F 40/41 PCR Cancelled Stool Astrovirus (PCR) Cancelled Stool Campylobacter PCR Cancelled Stool Cryptosporidium PCR Cancelled Stl Sh Tox Pr E STEC PCR Cancelled Stool E coli O157 PCR Cancelled Stl Enterotoxigenic E PCR Cancelled Stool EPEC (PCR) Cancelled Stool EAEC (PCR) Cancelled Stl E. histolytica PCR Cancelled Stool Giardia Lamblia PCR Cancelled Stl P. shigelloides PCR Cancelled Stool Salmonella PCR Cancelled Stool Sapovirus (PCR) Cancelled Stl Shigella/EIEC PCR Cancelled St Y.enterocolitica PCR Cancelled Stool Vibrio (PCR) Cancelled Stl Vibrio cholerae PCR Cancelled Stl Norovirus GI/GII PCR Cancelled Medications Medications Current Medications Acetaminophen (Acetaminophen 325 Mg Tablet) 650 mg G-TUBE Q6H PRN PRN Reason: Headache/Pain, Scale 1-10 Al Hydroxide/Mg Hydroxide (Magnesium Hydrox/Alum Hydrox 30 Ml Oral.Susp) 30 ml G-TUBE Q6H PRN PRN Reason: Heartburn/Nausea Enoxaparin Sodium (Enoxaparin Sodium 40 Mg/0.4 Ml Syringe) 40 mg SUBCUT Q24H [facility] Last Admin: 12/08/24 16:20 Dose: 40 mg Famotidine (Famotidine 20 Mg Tablet) 20 mg G-TUBE BID [facility] Last Admin: 12/09/24 08:16 Dose: 20 mg Hydroxyzine HCl (Hydroxyzine Hcl 25 Mg Tablet) 25 mg G-TUBE Q6H PRN PRN Reason: mild anxiety Last Admin: 12/07/24 21:02 Dose: 25 mg Loperamide HCl (Loperamide Hcl Oral Liquid 2 Mg/15 Ml Liquid) 4 mg G-TUBE TID [facility] Last Admin: 12/09/24 08:15 Dose: 4 mg Magnesium Hydroxide (Milk Of Magnesia 30 Ml Oral.Susp) 30 ml G-TUBE DAILY PRN PRN Reason: Constipation Metoprolol Tartrate (Metoprolol Tartrate 12.5 Mg Halftab) 12.5 mg G-TUBE BID [facility]; Protocol Last Admin: 12/09/24 08:15 Dose: 12.5 mg Mirtazapine (Mirtazapine 7.5 Mg Tablet) 7.5 mg G-TUBE BEDTIME [facility] Last Admin: 12/08/24 20:45 Dose: 7.5 mg Nicotine Polacrilex (Nicotine Polacrilex 2 Mg Gum) 4 mg BUCCAL Q2H PRN PRN Reason: Nicotine Cravings Nystatin (Nystatin Powder 15 Gm Bottle) 1 appl TOPICAL BID [facility]; Protocol Last Admin: 12/08/24 20:46 Dose: 1 appl Oxycodone HCl (Oxycodone Hcl Immed Release 5 Mg Tablet) 5 mg PO Q6H PRN PRN Reason: Pain, Severe (Pain Scale 7-10) Last Admin: 12/08/24 03:30 Dose: 5 mg Sertraline HCl (Sertraline Hcl 50 Mg Tablet) 50 mg G-TUBE DAILY [facility] Last Admin: 12/09/24 08:16 Dose: 50 mg Trazodone HCl (Trazodone Hcl 50 Mg Tablet) 50 mg G-TUBE BEDTIME MRX1 PRN PRN Reason: Insomnia Last Admin: 12/07/24 21:01 Dose: 50 mg Venlafaxine HCl (Venlafaxine Hcl 25 Mg Tablet) 25 mg G-TUBE DAILY [facility] Last Admin: 12/09/24 09:00 Dose: 25 mg Allergies Allergies Allergy/AdvReac Type Severity Reaction Status Date / Time apple Allergy Unknown Verified 11/30/24 22:50 cefuroxime Allergy Unknown Verified 11/30/24 22:50 cephalexin [From Keflex] Allergy Unknown Verified 11/30/24 22:50 ciprofloxacin Allergy Unknown Verified 11/30/24 22:50 clarithromycin Allergy Unknown Verified 11/30/24 22:50 codeine Allergy Unknown Verified 11/30/24 22:50 doxycycline Allergy Unknown Verified 11/30/24 22:50 erythromycin base Allergy Unknown Verified 11/30/24 22:50 furosemide Allergy Unknown Verified 11/30/24 22:50 hydromorphone [From Dilaudid] Allergy Unknown Verified 11/30/24 22:50 indomethacin Allergy Unknown Verified 11/30/24 22:50 Iodinated Contrast Media Allergy Unknown Verified 11/30/24 22:50 iodine Allergy Unknown Verified 11/30/24 22:50 nitrofurantoin Allergy Unknown Verified 11/30/24 22:50 omeprazole Allergy Unknown Verified 11/30/24 22:50 penicillin G Allergy Unknown Verified 11/30/24 22:50 Penicillins Allergy Unknown Verified 11/30/24 22:50 pseudoephedrine Allergy Unknown Verified 11/30/24 22:50 shellfish derived [shellfish] Allergy Unknown Verified 11/30/24 22:50 Sulfa (Sulfonamide Allergy Unknown Verified 11/30/24 22:50 Antibiotics) Assessment & Plan Assessment & Plan (1) MDD (major depressive disorder), recurrent episode, severe: Status: Acute Code(s): F33.2 - Major depressive disorder, recurrent severe without psychotic features (2) Heart failure: Status: Acute Code(s): I50.9 - Heart failure, unspecified (3) Osteoarthritis: Status: Acute Code(s): M19.90 - Unspecified osteoarthritis, unspecified site (4) Thyroid nodule: Status: Acute Code(s): E04.1 - Nontoxic single thyroid nodule Assessment and Plan: TSH 0.23, Free T4 1.06 recommended to have another biopsy. (5) HTN (hypertension): Status: Acute Code(s): I10 - Essential (primary) hypertension (6) GERD (gastroesophageal reflux disease): Status: Acute Code(s): K21.9 - Gastro-esophageal reflux disease without esophagitis Plan Mrs. Nicholas is a 74 year-old woman who was brought via EMS to [facility] ED after falling down the stairs. She sustained a right trochanteric fracture, under went repair on 11/04/2024. She reported this was a suicide attempt. She is vague about events leading to suicide attempt. She declines to talk about her depression and provide more details about it. She does denied any plan or intent to harm herself at this moment but also reports feeling depressed and being in a worse situation than prior to suicide attempt. She was started on sertraline while at [facility]. Sertraline was titrated to 100mg po daily. She does have hx of IBS with diarrhea. She reports increase loose stools and although she suspects may be due to feeding with lactose, also consider exacerbation of IBS related loose stools with sertraline. She reports no improvement so far in terms of depression with current medications. PLAN 1. Admit to S1, CV, 5 mins checks 12/03 - unsure why sertraline has not been changed over to other med given diarrhea/colitis ? will discuss with pt tomorrow- otherwise ctp - change omeprazole to famotidine due to hx allergy- though pt does not remember the allergy- 12/04 -PT consult, GI consult, further consideration about changing ssri, change enteric feeding rate- 12/05 pt does present with slightly brighter and more willing to engage in treatment from multidisciplinary team. awaiting GI consult. 12/06 continue tx. 12/07 lower sertraline to 50mg Gtube daily, start effexor IR 25mg Gtube 12/08 continue tx. will titrate effexor gradually 12/09 increase effexor IR (given that she is taking it via Gtube) to 25mg po BID, increase remeron to 15mg po qhs. Reason for continued inpatient stay Substantial Risk for: harm to self and inability to function Time Spent With Patient Time: Total time managing care of this patient today ____ minutes.
[2024-12-09 11:24] LABS: Adenovirus F 40/41 Not Detected (Not Detect.); Astrovirus Not Detected (Not Detect.); Campylobacter Not Detected (Not Detect.); Cryptosporidium Not Detected (Not Detect.); Cyclospora cayetanensis Not Detected (Not Detect.); E. coli EAEC Not Detected (Not Detect.); E. coli EPEC Detected (Not Detect.); E. coli ETEC Not Detected (Not Detect.); E. coli STEC Not Detected (Not Detect.); Entamoeba histolytica Not Detected (Not Detect.); Giardia lamblia Not Detected (Not Detect.); Norovirus GI/GII Not Detected (Not Detect.); Plesiomonas shigelloides Not Detected (Not Detect.); Rotavirus A Not Detected (Not Detect.); Salmonella Not Detected (Not Detect.); Sapovirus Not Detected (Not Detect.); Shigella sp./EIEC Not Detected (Not Detect.); Vibrio Not Detected (Not Detect.); Vibrio Cholerae Not Detected (Not Detect.); Yersinia enterocolitica Not Detected (Not Detect.)
--- NOTE | 2024-12-09 11:41 | MHC.CLN ---
F/U DIET RX: PUREE DIET PER MASSAGE THERAPIST REC 12/05 ALONG WITH TF APPEARS TO BE TOLERATING CURRENT TUBE FEEDING PT RECEIVING OSMOLITE 1.5 TF BOLUS 300ML Q 6 HRS WITH 240ML FREE WATER FLUSHES Q 8 HRS PROVIDES 1800KCALS (28KCALS/KG), 75G PROTEIN (1.2G/KG), 2092ML TOTAL WATER FROM FORMULA AND FLUSHES (32ML/KG) DO NOT COMBINE FORMULA AND FLUSHES AT SAME TIME CONTINUE TO MONITOR TOLERANCE AND LYTES
--- NOTE | 2024-12-09 12:35 | P.CONOB_ITS ---
DATA SUPPORT ANALYST - CN: HPI Data of Consult Consult date: 12/09/24 Requesting Physician: David Mahan MD Primary Care Provider: Alexandra Poe MD Consult Narrative Narrative: I was consulted on Niki Nicholas who is a 74 year old female who is admitted to the geriatric psychiatry unit on December 01 with depression. The patient gives history of labial erythema and pain cc:: CC: David Mahan MD OB [facility] Past Medical History Medical History Breast cancer, right Prediabetes HTN (hypertension) GERD (gastroesophageal reflux disease) Fracture of right tibial plateau Closed right hip fracture Pulmonary embolism DVT (deep venous thrombosis) Dysphagia HLD (hyperlipidemia) Thyroid nodule Social History Social History Household Members: Children Household Members Other:: son and daughter Housing: House Do you presently have visiting nurse or other home services: No Comment: refuses yellow socks Patient Tobacco Use Status: Never used Tobacco Smoked in Last 30 Days: No Patient Interested in Nicotine Replacement: No Patient Given Instructions on How to Stop Smoking: No Second Hand Smoke Exposure: No Use of substances other than those prescribed or required for medical reasons: No Currently Displaying Signs/Symptoms of Drug Intoxication Withdrawal: No Any prior treatment program specific to substance use: No Have you been hit, kicked, punched, or otherwise hurt by someone within the past year? If so, by whom?: No Do you feel safe in your current relationship?: No Current Relationship Is there a partner from a previous relationship who is making you feel unsafe now?: No Advance Directives: No Advance Directives Information Provided: No Do you have thoughts of harming others: None Do you have a plan to hurt others: No Plan Recently lost weight without trying: Unsure Nutrition Risks: Difficulty swallowing Patient : No : No Poor oral hygiene: No service: No Sexual orientation: Straight/Heterosexual Meds Allergies Allergy/AdvReac Type Severity Reaction Status Date / Time apple Allergy Unknown Verified 11/30/24 22:50 cefuroxime Allergy Unknown Verified 11/30/24 22:50 cephalexin [From Keflex] Allergy Unknown Verified 11/30/24 22:50 ciprofloxacin Allergy Unknown Verified 11/30/24 22:50 clarithromycin Allergy Unknown Verified 11/30/24 22:50 codeine Allergy Unknown Verified 11/30/24 22:50 doxycycline Allergy Unknown Verified 11/30/24 22:50 erythromycin base Allergy Unknown Verified 11/30/24 22:50 furosemide Allergy Unknown Verified 11/30/24 22:50 hydromorphone [From Dilaudid] Allergy Unknown Verified 11/30/24 22:50 indomethacin Allergy Unknown Verified 11/30/24 22:50 Iodinated Contrast Media Allergy Unknown Verified 11/30/24 22:50 iodine Allergy Unknown Verified 11/30/24 22:50 nitrofurantoin Allergy Unknown Verified 11/30/24 22:50 omeprazole Allergy Unknown Verified 11/30/24 22:50 penicillin G Allergy Unknown Verified 11/30/24 22:50 Penicillins Allergy Unknown Verified 11/30/24 22:50 pseudoephedrine Allergy Unknown Verified 11/30/24 22:50 shellfish derived [shellfish] Allergy Unknown Verified 11/30/24 22:50 Sulfa (Sulfonamide Allergy Unknown Verified 11/30/24 22:50 Antibiotics) Active Medications: Current Medications Acetaminophen (Acetaminophen 325 Mg Tablet) 650 mg G-TUBE Q6H PRN PRN Reason: Headache/Pain, Scale 1-10 Al Hydroxide/Mg Hydroxide (Magnesium Hydrox/Alum Hydrox 30 Ml Oral.Susp) 30 ml G-TUBE Q6H PRN PRN Reason: Heartburn/Nausea Enoxaparin Sodium (Enoxaparin Sodium 40 Mg/0.4 Ml Syringe) 40 mg SUBCUT Q24H [facility] Last Admin: 12/08/24 16:20 Dose: 40 mg Famotidine (Famotidine 20 Mg Tablet) 20 mg G-TUBE BID [facility] Last Admin: 12/09/24 08:16 Dose: 20 mg Hydroxyzine HCl (Hydroxyzine Hcl 25 Mg Tablet) 25 mg G-TUBE Q6H PRN PRN Reason: mild anxiety Last Admin: 12/07/24 21:02 Dose: 25 mg Loperamide HCl (Loperamide Hcl Oral Liquid 2 Mg/15 Ml Liquid) 4 mg G-TUBE TID [facility] Last Admin: 12/09/24 08:15 Dose: 4 mg Magnesium Hydroxide (Milk Of Magnesia 30 Ml Oral.Susp) 30 ml G-TUBE DAILY PRN PRN Reason: Constipation Metoprolol Tartrate (Metoprolol Tartrate 12.5 Mg Halftab) 12.5 mg G-TUBE BID [facility]; Protocol Last Admin: 12/09/24 08:15 Dose: 12.5 mg Mirtazapine (Mirtazapine 7.5 Mg Tablet) 7.5 mg G-TUBE BEDTIME [facility] Last Admin: 12/08/24 20:45 Dose: 7.5 mg Nicotine Polacrilex (Nicotine Polacrilex 2 Mg Gum) 4 mg BUCCAL Q2H PRN PRN Reason: Nicotine Cravings Nystatin (Nystatin Powder 15 Gm Bottle) 1 appl TOPICAL BID [facility]; Protocol Last Admin: 12/08/24 20:46 Dose: 1 appl Oxycodone HCl (Oxycodone Hcl Immed Release 5 Mg Tablet) 5 mg PO Q6H PRN PRN Reason: Pain, Severe (Pain Scale 7-10) Last Admin: 12/08/24 03:30 Dose: 5 mg Sertraline HCl (Sertraline Hcl 50 Mg Tablet) 50 mg G-TUBE DAILY [facility] Last Admin: 12/09/24 08:16 Dose: 50 mg Trazodone HCl (Trazodone Hcl 50 Mg Tablet) 50 mg G-TUBE BEDTIME MRX1 PRN PRN Reason: Insomnia Last Admin: 12/07/24 21:01 Dose: 50 mg Venlafaxine HCl (Venlafaxine Hcl 25 Mg Tablet) 25 mg G-TUBE DAILY [facility] Last Admin: 12/09/24 09:00 Dose: 25 mg Home Medications ?Medication ?Instructions ?Recorded ?Confirmed ?Last Taken ?Type acetaminophen 500 mg tablet 1,000 mg PO Q6H PRN Pain 11/30/24 11/30/24 Unknown History enoxaparin 40 mg/0.4 mL 40 mg subcut DAILY 11/30/24 11/30/24 Unknown History subcutaneous syringe lansoprazole 30 mg capsule,delayed 30 mg PO DAILY 11/30/24 11/30/24 Unknown History release loperamide 1 mg/5 mL oral liquid 2 mg PO Q6H PRN Diarrhea 11/30/24 11/30/24 Unknown History metoprolol tartrate 25 mg tablet 12.5 mg PO BID 11/30/24 11/30/24 Unknown History mirtazapine 7.5 mg tablet 7.5 mg PO BEDTIME 11/30/24 11/30/24 Unknown History oxycodone 5 mg tablet 5 mg PO Q6H PRN Pain 11/30/24 11/30/24 Unknown History sertraline 100 mg tablet 100 mg PO DAILY 11/30/24 11/30/24 Unknown History DATA SUPPORT ANALYST Physical Exam Vitals Vital signs: Temp Pulse Resp BP Pulse Ox O2 Del Method 97.1 F 72 18 120/71 98 Room Air 12/09/24 08:15 12/09/24 08:15 12/08/24 20:00 12/09/24 08:15 12/09/24 08:15 12/09/24 08:15 BMI result Body Mass Index 27.4 Narrative: The patient declined an exam and an evaluation DATA SUPPORT ANALYST - Results Labs 12/06/24 07:38 12/06/24 07:38 Assessment and Plan (1) Swelling of vulva: Status: Acute Plan The patient declined an exam and evaluation. Explained to the patient that I would not be able to evaluate her and recommend a treatment plan without taking a history and performing a physical exam including pelvic exam. The patient verbalized understanding and declined. Please call me back i if the patient changes her mind Cipriano Flores NP was present during the discussion
[2024-12-09] MEDS: Nystatin Powder 15 GM BOTTLE 1 APPL TOPICAL ×2 (16:41→21:34)
[2024-12-09] MEDS: Enoxaparin Sodium 40 MG/0.4 ML SYRINGE SUBCUT (16:46)
[2024-12-09 20:00] VITALS: BP 103/58; PULSE 67; RESP 18; TEMP 36.3; O2SAT 95
[2024-12-09] MEDS: Mirtazapine 7.5 MG TABLET G-TUBE (21:34)
[2024-12-10 08:00] VITALS: BP 113/55; PULSE 69; RESP 18; TEMP 36.2; O2SAT 97
[2024-12-10] MEDS: Metoprolol Tartrate 12.5 MG HALFTAB G-TUBE ×2 (08:43→20:16)
[2024-12-10] MEDS: Nystatin Powder 15 GM BOTTLE 1 APPL TOPICAL ×2 (08:43→20:17)
[2024-12-10] MEDS: Loperamide HCl Oral Liquid 2 MG/15 ML LIQUID 4 MG G-TUBE ×3 (08:43→20:16)
[2024-12-10] MEDS: Sertraline HCL 50 MG TABLET G-TUBE (08:44)
[2024-12-10] MEDS: Famotidine 20 MG TABLET G-TUBE ×2 (08:45→20:16)
[2024-12-10] MEDS: Enoxaparin Sodium 40 MG/0.4 ML SYRINGE SUBCUT (16:56)
[2024-12-10] MEDS: Venlafaxine HCL 25 MG TABLET G-TUBE (16:56)
[2024-12-10 20:00] VITALS: BP 102/51; PULSE 75; RESP 18; TEMP 36.4; O2SAT 100
[2024-12-10] MEDS: Mirtazapine 15 MG TABLET G-TUBE (20:16)
[2024-12-10] MEDS: hydrOXYzine HCL 25 MG TABLET G-TUBE (20:16)
[2024-12-11] MEDS: Acetaminophen 325 MG TABLET 650 MG G-TUBE (00:58)
[2024-12-11] MEDS: traZODone HCL 50 MG TABLET G-TUBE (00:58)
[2024-12-11 08:00] VITALS: BP 102/51; PULSE 68; RESP 18; TEMP 36.7; O2SAT 95
[2024-12-11] MEDS: Loperamide HCl Oral Liquid 2 MG/15 ML LIQUID 4 MG G-TUBE ×3 (08:04→20:53)
[2024-12-11] MEDS: Sertraline HCL 50 MG TABLET G-TUBE (08:05)
[2024-12-11] MEDS: Venlafaxine HCL 25 MG TABLET G-TUBE ×2 (08:05→17:30)
[2024-12-11] MEDS: Famotidine 20 MG TABLET G-TUBE ×2 (08:05→20:53)
[2024-12-11 08:55] VITALS: BP 112/56; PULSE 65
[2024-12-11] MEDS: Metoprolol Tartrate 12.5 MG HALFTAB G-TUBE ×2 (08:56→20:53)
[2024-12-11] MEDS: Nystatin Powder 15 GM BOTTLE 1 APPL TOPICAL ×2 (08:57→20:53)
--- NOTE | 2024-12-11 15:09 | P.PNPSI_ITS ---
Subjective Subjective Date of Service: 12/10/24 Reason For Visit: major depressive d/o Interim History: Late entry note for patient seen on 12/10; discussed with team Patient quite anxious on approach. Assembler Crimper asked why she did not let instructor dramatic arts examine her genitalia as consult was put in for inflamed labia; she is was not sure why, saying she worried that her leg cast would get in the way... That she was anxious about all the other things going on. Patient said however that she would allow them to examine upon return Mental Status Exam Mental Status Exam Narrative: Appearance: wearing hospital gown, lying in bed; in some physical pain due to fractures, hip surgery and chronic osteoarthritis Behavior: guarded, superficially cooperative Psychomotor: lower spasm-like movement of legs, no tremors Speech: clear, normal rate/rhythm/volume, spontaneous TP: Goal oriented TC: Anxious about medical comorbidities Mood: in pain Affect: congruent SI: denies HI: denies VH/AH: denies Delusions: no overt signs Insight/judgment: poor x 2. Memory/cog: alert, oriented x 3. pending further cognitive/memory assessments. Diagnostics Vital Signs (24Hr): Vital Signs - 24 hr 12/10/24 20:00 12/11/24 08:00 12/11/24 08:55 Temperature 97.6 F 98.0 F Pulse Rate 75 68 65 Respiratory Rate 18 18 Blood Pressure 102/51 L 102/51 L 112/56 L Pulse Oximetry 100 95 Oxygen Delivery Method Room Air Room Air BMI result Body Mass Index 27.4 Labs 12/06/24 07:38 12/06/24 07:38 Medications Medications Current Medications Acetaminophen (Acetaminophen 325 Mg Tablet) 650 mg G-TUBE Q6H PRN PRN Reason: Headache/Pain, Scale 1-10 Last Admin: 12/11/24 00:58 Dose: 650 mg Al Hydroxide/Mg Hydroxide (Magnesium Hydrox/Alum Hydrox 30 Ml Oral.Susp) 30 ml G-TUBE Q6H PRN PRN Reason: Heartburn/Nausea Enoxaparin Sodium (Enoxaparin Sodium 40 Mg/0.4 Ml Syringe) 40 mg SUBCUT Q24H [facility] Last Admin: 12/10/24 16:56 Dose: 40 mg Famotidine (Famotidine 20 Mg Tablet) 20 mg G-TUBE BID [facility] Last Admin: 12/11/24 08:05 Dose: 20 mg Hydroxyzine HCl (Hydroxyzine Hcl 25 Mg Tablet) 25 mg G-TUBE Q6H PRN PRN Reason: mild anxiety Last Admin: 12/10/24 20:16 Dose: 25 mg Loperamide HCl (Loperamide Hcl Oral Liquid 2 Mg/15 Ml Liquid) 4 mg G-TUBE TID [facility] Last Admin: 12/11/24 15:01 Dose: 4 mg Magnesium Hydroxide (Milk Of Magnesia 30 Ml Oral.Susp) 30 ml G-TUBE DAILY PRN PRN Reason: Constipation Metoprolol Tartrate (Metoprolol Tartrate 12.5 Mg Halftab) 12.5 mg G-TUBE BID [facility]; Protocol Last Admin: 12/11/24 08:56 Dose: 12.5 mg Mirtazapine (Mirtazapine 15 Mg Tablet) 15 mg G-TUBE BEDTIME [facility] Last Admin: 12/10/24 20:16 Dose: 15 mg Nicotine Polacrilex (Nicotine Polacrilex 2 Mg Gum) 4 mg BUCCAL Q2H PRN PRN Reason: Nicotine Cravings Nystatin (Nystatin Powder 15 Gm Bottle) 1 appl TOPICAL BID [facility]; Protocol Last Admin: 12/11/24 08:57 Dose: 1 appl Oxycodone HCl (Oxycodone Hcl Immed Release 5 Mg Tablet) 5 mg PO Q6H PRN PRN Reason: Pain, Severe (Pain Scale 7-10) Last Admin: 12/08/24 03:30 Dose: 5 mg Sertraline HCl (Sertraline Hcl 50 Mg Tablet) 50 mg G-TUBE DAILY [facility] Last Admin: 12/11/24 08:05 Dose: 50 mg Trazodone HCl (Trazodone Hcl 50 Mg Tablet) 50 mg G-TUBE BEDTIME MRX1 PRN PRN Reason: Insomnia Last Admin: 12/11/24 00:58 Dose: 50 mg Venlafaxine HCl (Venlafaxine Hcl 25 Mg Tablet) 25 mg G-TUBE BID@0800,1700 [facility] Last Admin: 12/11/24 08:05 Dose: 25 mg Allergies Allergies Allergy/AdvReac Type Severity Reaction Status Date / Time apple Allergy Unknown Verified 11/30/24 22:50 cefuroxime Allergy Unknown Verified 11/30/24 22:50 cephalexin [From Keflex] Allergy Unknown Verified 11/30/24 22:50 ciprofloxacin Allergy Unknown Verified 11/30/24 22:50 clarithromycin Allergy Unknown Verified 11/30/24 22:50 codeine Allergy Unknown Verified 11/30/24 22:50 doxycycline Allergy Unknown Verified 11/30/24 22:50 erythromycin base Allergy Unknown Verified 11/30/24 22:50 furosemide Allergy Unknown Verified 11/30/24 22:50 hydromorphone [From Dilaudid] Allergy Unknown Verified 11/30/24 22:50 indomethacin Allergy Unknown Verified 11/30/24 22:50 Iodinated Contrast Media Allergy Unknown Verified 11/30/24 22:50 iodine Allergy Unknown Verified 11/30/24 22:50 nitrofurantoin Allergy Unknown Verified 11/30/24 22:50 omeprazole Allergy Unknown Verified 11/30/24 22:50 penicillin G Allergy Unknown Verified 11/30/24 22:50 Penicillins Allergy Unknown Verified 11/30/24 22:50 pseudoephedrine Allergy Unknown Verified 11/30/24 22:50 shellfish derived [shellfish] Allergy Unknown Verified 11/30/24 22:50 Sulfa (Sulfonamide Allergy Unknown Verified 11/30/24 22:50 Antibiotics) Assessment & Plan Assessment & Plan (1) MDD (major depressive disorder), recurrent episode, severe: Status: Acute Code(s): F33.2 - Major depressive disorder, recurrent severe without psychotic features (2) Heart failure: Status: Acute Code(s): I50.9 - Heart failure, unspecified (3) Osteoarthritis: Status: Acute Code(s): M19.90 - Unspecified osteoarthritis, unspecified site (4) Thyroid nodule: Status: Acute Code(s): E04.1 - Nontoxic single thyroid nodule Assessment and Plan: TSH 0.23, Free T4 1.06 recommended to have another biopsy. (5) HTN (hypertension): Status: Acute Code(s): I10 - Essential (primary) hypertension (6) GERD (gastroesophageal reflux disease): Status: Acute Code(s): K21.9 - Gastro-esophageal reflux disease without esophagitis Plan Mrs. Nicholas is a 74 year-old woman who was brought via EMS to [facility] ED after falling down the stairs. She sustained a right trochanteric fracture, under went repair on 11/04/2024. She reported this was a suicide attempt. She is vague about events leading to suicide attempt. She declines to talk about her depression and provide more details about it. She does denied any plan or intent to harm herself at this moment but also reports feeling depressed and being in a worse situation than prior to suicide attempt. She was started on sertraline while at [facility]. Sertraline was titrated to 100mg po daily. She does have hx of IBS with diarrhea. She reports increase loose stools and although she suspects may be due to feeding with lactose, also consider exacerbation of IBS related loose stools with sertraline. She reports no improvement so far in terms of depression with current medications. PLAN 1. Admit to S1, CV, 5 mins checks 12/03 - unsure why sertraline has not been changed over to other med given diarrhea/colitis ? will discuss with pt tomorrow- otherwise ctp - change omeprazole to famotidine due to hx allergy- though pt does not remember the allergy- 12/04 -PT consult, GI consult, further consideration about changing ssri, change enteric feeding rate- 12/05 pt does present with slightly brighter and more willing to engage in treatment from multidisciplinary team. awaiting GI consult. 12/06 continue tx. 12/07 lower sertraline to 50mg Gtube daily, start effexor IR 25mg Gtube 12/08 continue tx. will titrate effexor gradually 12/09 increase effexor IR (given that she is taking it via Gtube) to 25mg po BID, increase remeron to 15mg po qhs. 12/10 Patient quite anxious on approach. Assembler Crimper asked why she did not let instructor dramatic arts examine her genitalia as consult was put in for inflamed labia; she is was not sure why, saying she worried that her leg cast would get in the way... That she was anxious about all the other things going on. Patient said however that she would allow them to examine upon return Patient educated on: diagnosis and medical condition Informed Consent: understands, does not understand and further education needed Reason for continued inpatient stay Substantial Risk for: inability to function Time Spent With Patient Time: Total time managing care of this patient today ____ minutes.
--- NOTE | 2024-12-11 15:12 | HO.PSYCHPN ---
Subjective Subjective Date of Service: 12/11/24 Reason For Visit: major depressive d/o Interim History: Met with patient; discussed with team Patient out of bed and in the milieu; remains anxious , however says I am not depressed, I am in pain and refers to her buttocks area which she says is burning; chief underwriter a nursing attempting to get refill of barrier cream Colopast. Mental Status Exam Mental Status Exam Narrative: Appearance: wearing hospital gown, lying in bed; in some physical pain due to fractures, hip surgery and chronic osteoarthritis Behavior: guarded, superficially cooperative Psychomotor: lower spasm-like movement of legs, no tremors Speech: clear, normal rate/rhythm/volume, spontaneous TP: Goal oriented TC: Anxious about medical comorbidities Mood: i'm not depressed i'm in pain Affect: congruent SI: denies HI: denies VH/AH: denies Delusions: no overt signs Insight/judgment: Impaired Memory/cog: alert, oriented x 3. pending further cognitive/memory assessments. Diagnostics Vital Signs (24Hr): Vital Signs - 24 hr 12/10/24 20:00 12/11/24 08:00 12/11/24 08:55 Temperature 97.6 F 98.0 F Pulse Rate 75 68 65 Respiratory Rate 18 18 Blood Pressure 102/51 L 102/51 L 112/56 L Pulse Oximetry 100 95 Oxygen Delivery Method Room Air Room Air BMI result Body Mass Index 27.4 Labs 12/06/24 07:38 12/06/24 07:38 Medications Medications Current Medications Acetaminophen (Acetaminophen 325 Mg Tablet) 650 mg G-TUBE Q6H PRN PRN Reason: Headache/Pain, Scale 1-10 Last Admin: 12/11/24 00:58 Dose: 650 mg Al Hydroxide/Mg Hydroxide (Magnesium Hydrox/Alum Hydrox 30 Ml Oral.Susp) 30 ml G-TUBE Q6H PRN PRN Reason: Heartburn/Nausea Enoxaparin Sodium (Enoxaparin Sodium 40 Mg/0.4 Ml Syringe) 40 mg SUBCUT Q24H [facility] Last Admin: 12/10/24 16:56 Dose: 40 mg Famotidine (Famotidine 20 Mg Tablet) 20 mg G-TUBE BID [facility] Last Admin: 12/11/24 08:05 Dose: 20 mg Hydroxyzine HCl (Hydroxyzine Hcl 25 Mg Tablet) 25 mg G-TUBE Q6H PRN PRN Reason: mild anxiety Last Admin: 12/10/24 20:16 Dose: 25 mg Loperamide HCl (Loperamide Hcl Oral Liquid 2 Mg/15 Ml Liquid) 4 mg G-TUBE TID [facility] Last Admin: 12/11/24 15:01 Dose: 4 mg Magnesium Hydroxide (Milk Of Magnesia 30 Ml Oral.Susp) 30 ml G-TUBE DAILY PRN PRN Reason: Constipation Metoprolol Tartrate (Metoprolol Tartrate 12.5 Mg Halftab) 12.5 mg G-TUBE BID [facility]; Protocol Last Admin: 12/11/24 08:56 Dose: 12.5 mg Mirtazapine (Mirtazapine 15 Mg Tablet) 15 mg G-TUBE BEDTIME [facility] Last Admin: 12/10/24 20:16 Dose: 15 mg Nicotine Polacrilex (Nicotine Polacrilex 2 Mg Gum) 4 mg BUCCAL Q2H PRN PRN Reason: Nicotine Cravings Nystatin (Nystatin Powder 15 Gm Bottle) 1 appl TOPICAL BID [facility]; Protocol Last Admin: 12/11/24 08:57 Dose: 1 appl Oxycodone HCl (Oxycodone Hcl Immed Release 5 Mg Tablet) 5 mg PO Q6H PRN PRN Reason: Pain, Severe (Pain Scale 7-10) Last Admin: 12/08/24 03:30 Dose: 5 mg Sertraline HCl (Sertraline Hcl 50 Mg Tablet) 50 mg G-TUBE DAILY [facility] Last Admin: 12/11/24 08:05 Dose: 50 mg Trazodone HCl (Trazodone Hcl 50 Mg Tablet) 50 mg G-TUBE BEDTIME MRX1 PRN PRN Reason: Insomnia Last Admin: 12/11/24 00:58 Dose: 50 mg Venlafaxine HCl (Venlafaxine Hcl 25 Mg Tablet) 25 mg G-TUBE BID@0800,1700 [facility] Last Admin: 12/11/24 08:05 Dose: 25 mg Allergies Allergies Allergy/AdvReac Type Severity Reaction Status Date / Time apple Allergy Unknown Verified 11/30/24 22:50 cefuroxime Allergy Unknown Verified 11/30/24 22:50 cephalexin [From Keflex] Allergy Unknown Verified 11/30/24 22:50 ciprofloxacin Allergy Unknown Verified 11/30/24 22:50 clarithromycin Allergy Unknown Verified 11/30/24 22:50 codeine Allergy Unknown Verified 11/30/24 22:50 doxycycline Allergy Unknown Verified 11/30/24 22:50 erythromycin base Allergy Unknown Verified 11/30/24 22:50 furosemide Allergy Unknown Verified 11/30/24 22:50 hydromorphone [From Dilaudid] Allergy Unknown Verified 11/30/24 22:50 indomethacin Allergy Unknown Verified 11/30/24 22:50 Iodinated Contrast Media Allergy Unknown Verified 11/30/24 22:50 iodine Allergy Unknown Verified 11/30/24 22:50 nitrofurantoin Allergy Unknown Verified 11/30/24 22:50 omeprazole Allergy Unknown Verified 11/30/24 22:50 penicillin G Allergy Unknown Verified 11/30/24 22:50 Penicillins Allergy Unknown Verified 11/30/24 22:50 pseudoephedrine Allergy Unknown Verified 11/30/24 22:50 shellfish derived [shellfish] Allergy Unknown Verified 11/30/24 22:50 Sulfa (Sulfonamide Allergy Unknown Verified 11/30/24 22:50 Antibiotics) Assessment & Plan Assessment & Plan (1) MDD (major depressive disorder), recurrent episode, severe: Status: Acute Code(s): F33.2 - Major depressive disorder, recurrent severe without psychotic features (2) Heart failure: Status: Acute Code(s): I50.9 - Heart failure, unspecified (3) Osteoarthritis: Status: Acute Code(s): M19.90 - Unspecified osteoarthritis, unspecified site (4) Thyroid nodule: Status: Acute Code(s): E04.1 - Nontoxic single thyroid nodule Assessment and Plan: TSH 0.23, Free T4 1.06 recommended to have another biopsy. (5) HTN (hypertension): Status: Acute Code(s): I10 - Essential (primary) hypertension (6) GERD (gastroesophageal reflux disease): Status: Acute Code(s): K21.9 - Gastro-esophageal reflux disease without esophagitis Plan Mrs. Nicholas is a 74 year-old woman who was brought via EMS to [facility] ED after falling down the stairs. She sustained a right trochanteric fracture, under went repair on 11/04/2024. She reported this was a suicide attempt. She is vague about events leading to suicide attempt. She declines to talk about her depression and provide more details about it. She does denied any plan or intent to harm herself at this moment but also reports feeling depressed and being in a worse situation than prior to suicide attempt. She was started on sertraline while at [facility]. Sertraline was titrated to 100mg po daily. She does have hx of IBS with diarrhea. She reports increase loose stools and although she suspects may be due to feeding with lactose, also consider exacerbation of IBS related loose stools with sertraline. She reports no improvement so far in terms of depression with current medications. PLAN 1. Admit to S1, CV, 5 mins checks 12/03 - unsure why sertraline has not been changed over to other med given diarrhea/colitis ? will discuss with pt tomorrow- otherwise ctp - change omeprazole to famotidine due to hx allergy- though pt does not remember the allergy- 12/04 -PT consult, GI consult, further consideration about changing ssri, change enteric feeding rate- 12/05 pt does present with slightly brighter and more willing to engage in treatment from multidisciplinary team. awaiting GI consult. 12/06 continue tx. 12/07 lower sertraline to 50mg Gtube daily, start effexor IR 25mg Gtube 12/08 continue tx. will titrate effexor gradually 12/09 increase effexor IR (given that she is taking it via Gtube) to 25mg po BID, increase remeron to 15mg po qhs. 12/10 Patient quite anxious on approach. Cut In Station Operator asked why she did not let bilingual office assistant examine her genitalia as consult was put in for inflamed labia; she is was not sure why, saying she worried that her leg cast would get in the way... That she was anxious about all the other things going on. Patient said however that she would allow them to examine upon return 12/11 continue tx plan; attempting to aquire colopast Patient educated on: diagnosis and medical condition Informed Consent: understands and further education needed Reason for continued inpatient stay Substantial Risk for: rapid decompensation Time Spent With Patient Time: Total time managing care of this patient today ____ minutes.
[2024-12-11] MEDS: Enoxaparin Sodium 40 MG/0.4 ML SYRINGE SUBCUT (17:29)
[2024-12-11 20:00] VITALS: BP 117/58; PULSE 77; RESP 16; TEMP 36.2; O2SAT 96
[2024-12-11] MEDS: Mirtazapine 15 MG TABLET G-TUBE (20:53)
[2024-12-12 08:00] VITALS: BP 110/52; PULSE 74; TEMP 36.9; O2SAT 94
--- NOTE | 2024-12-12 08:27 | P.PNPSI_ITS ---
Subjective Subjective Date of Service: 12/12/24 Reason For Visit: major depressive d/o Subjective Notes: Conditional Voluntary Interim History: Pt slept through the night. She reports unable to participate in PT or OT. She continues to receive parentenal nutrition, reports difficulty swallowing. She denies SI/HI. She reports she hopes to transition somewhere else. We discussed that at this point, she is total care and would qualify for LTC, not STR. She reports blurry vision, dizziness. SBP in low 100's Will try to switch only venlafaxine to oral medication instead of Gtube as it is an extended formulation, may be better tolerated than IR. Review of Systems Review of Systems No chest pain. No SOB back, knee and hip pain Mental Status Exam Mental Status Exam Narrative: Appearance: wearing hospital gown, lying in bed; in some physical pain due to fractures, hip surgery and chronic osteoarthritis Behavior: guarded, superficially cooperative Psychomotor: lower spasm-like movement of legs, no tremors Speech: clear, normal rate/rhythm/volume, spontaneous TP: Goal oriented TC: Anxious about medical comorbidities Mood: i'm not depressed i'm in pain Affect: congruent SI: denies HI: denies VH/AH: denies Delusions: no overt signs Insight/judgment: Impaired Memory/cog: alert, oriented x 3. pending further cognitive/memory assessments. Diagnostics Vital Signs (24Hr): Vital Signs - 24 hr 12/11/24 08:55 12/11/24 20:00 Temperature 97.2 F Pulse Rate 65 77 Respiratory Rate 16 Blood Pressure 112/56 L 117/58 L Pulse Oximetry 96 Oxygen Delivery Method Room Air BMI result Body Mass Index 27.4 Labs 12/06/24 07:38 12/06/24 07:38 Medications Medications Current Medications Acetaminophen (Acetaminophen 325 Mg Tablet) 650 mg G-TUBE Q6H PRN PRN Reason: Headache/Pain, Scale 1-10 Last Admin: 12/11/24 00:58 Dose: 650 mg Al Hydroxide/Mg Hydroxide (Magnesium Hydrox/Alum Hydrox 30 Ml Oral.Susp) 30 ml G-TUBE Q6H PRN PRN Reason: Heartburn/Nausea Enoxaparin Sodium (Enoxaparin Sodium 40 Mg/0.4 Ml Syringe) 40 mg SUBCUT Q24H [facility] Last Admin: 12/11/24 17:29 Dose: 40 mg Famotidine (Famotidine 20 Mg Tablet) 20 mg G-TUBE BID [facility] Last Admin: 12/11/24 20:53 Dose: 20 mg Hydroxyzine HCl (Hydroxyzine Hcl 25 Mg Tablet) 25 mg G-TUBE Q6H PRN PRN Reason: mild anxiety Last Admin: 12/10/24 20:16 Dose: 25 mg Loperamide HCl (Loperamide Hcl Oral Liquid 2 Mg/15 Ml Liquid) 4 mg G-TUBE TID [facility] Last Admin: 12/11/24 20:53 Dose: 4 mg Magnesium Hydroxide (Milk Of Magnesia 30 Ml Oral.Susp) 30 ml G-TUBE DAILY PRN PRN Reason: Constipation Metoprolol Tartrate (Metoprolol Tartrate 12.5 Mg Halftab) 12.5 mg G-TUBE BID [facility]; Protocol Last Admin: 12/11/24 20:53 Dose: 12.5 mg Mirtazapine (Mirtazapine 15 Mg Tablet) 15 mg G-TUBE BEDTIME [facility] Last Admin: 12/11/24 20:53 Dose: 15 mg Nicotine Polacrilex (Nicotine Polacrilex 2 Mg Gum) 4 mg BUCCAL Q2H PRN PRN Reason: Nicotine Cravings Nystatin (Nystatin Powder 15 Gm Bottle) 1 appl TOPICAL BID [facility]; Protocol Last Admin: 12/11/24 20:53 Dose: 1 appl Oxycodone HCl (Oxycodone Hcl Immed Release 5 Mg Tablet) 5 mg PO Q6H PRN PRN Reason: Pain, Severe (Pain Scale 7-10) Last Admin: 12/08/24 03:30 Dose: 5 mg Sertraline HCl (Sertraline Hcl 50 Mg Tablet) 50 mg G-TUBE DAILY [facility] Last Admin: 12/11/24 08:05 Dose: 50 mg Trazodone HCl (Trazodone Hcl 50 Mg Tablet) 50 mg G-TUBE BEDTIME MRX1 PRN PRN Reason: Insomnia Last Admin: 12/11/24 00:58 Dose: 50 mg Venlafaxine HCl (Venlafaxine Hcl 25 Mg Tablet) 25 mg G-TUBE BID@0800,1700 [facility] Last Admin: 12/11/24 17:30 Dose: 25 mg Allergies Allergies Allergy/AdvReac Type Severity Reaction Status Date / Time apple Allergy Unknown Verified 11/30/24 22:50 cefuroxime Allergy Unknown Verified 11/30/24 22:50 cephalexin [From Keflex] Allergy Unknown Verified 11/30/24 22:50 ciprofloxacin Allergy Unknown Verified 11/30/24 22:50 clarithromycin Allergy Unknown Verified 11/30/24 22:50 codeine Allergy Unknown Verified 11/30/24 22:50 doxycycline Allergy Unknown Verified 11/30/24 22:50 erythromycin base Allergy Unknown Verified 11/30/24 22:50 furosemide Allergy Unknown Verified 11/30/24 22:50 hydromorphone [From Dilaudid] Allergy Unknown Verified 11/30/24 22:50 indomethacin Allergy Unknown Verified 11/30/24 22:50 Iodinated Contrast Media Allergy Unknown Verified 11/30/24 22:50 iodine Allergy Unknown Verified 11/30/24 22:50 nitrofurantoin Allergy Unknown Verified 11/30/24 22:50 omeprazole Allergy Unknown Verified 11/30/24 22:50 penicillin G Allergy Unknown Verified 11/30/24 22:50 Penicillins Allergy Unknown Verified 11/30/24 22:50 pseudoephedrine Allergy Unknown Verified 11/30/24 22:50 shellfish derived [shellfish] Allergy Unknown Verified 11/30/24 22:50 Sulfa (Sulfonamide Allergy Unknown Verified 11/30/24 22:50 Antibiotics) Assessment & Plan Assessment & Plan (1) MDD (major depressive disorder), recurrent episode, severe: Status: Acute Code(s): F33.2 - Major depressive disorder, recurrent severe without psychotic features (2) Heart failure: Status: Acute Code(s): I50.9 - Heart failure, unspecified (3) Osteoarthritis: Status: Acute Code(s): M19.90 - Unspecified osteoarthritis, unspecified site (4) Thyroid nodule: Status: Acute Code(s): E04.1 - Nontoxic single thyroid nodule Assessment and Plan: TSH 0.23, Free T4 1.06 recommended to have another biopsy. (5) HTN (hypertension): Status: Acute Code(s): I10 - Essential (primary) hypertension (6) GERD (gastroesophageal reflux disease): Status: Acute Code(s): K21.9 - Gastro-esophageal reflux disease without esophagitis Plan Mrs. Nicholas is a 74 year-old woman who was brought via EMS to [facility] ED after falling down the stairs. She sustained a right trochanteric fracture, under went repair on 11/04/2024. She reported this was a suicide attempt. She is vague about events leading to suicide attempt. She declines to talk about her depression and provide more details about it. She does denied any plan or intent to harm herself at this moment but also reports feeling depressed and being in a worse situation than prior to suicide attempt. She was started on sertraline while at [facility]. Sertraline was titrated to 100mg po daily. She does have hx of IBS with diarrhea. She reports increase loose stools and although she suspects may be due to feeding with lactose, also consider exacerbation of IBS related loose stools with sertraline. She reports no improvement so far in terms of depression with current medications. PLAN 1. Admit to S1, CV, 5 mins checks 12/03 - unsure why sertraline has not been changed over to other med given diarrhea/colitis ? will discuss with pt tomorrow- otherwise ctp - change omeprazole to famotidine due to hx allergy- though pt does not remember the allergy- 12/04 -PT consult, GI consult, further consideration about changing ssri, change enteric feeding rate- 12/05 pt does present with slightly brighter and more willing to engage in treatment from multidisciplinary team. awaiting GI consult. 12/06 continue tx. 12/07 lower sertraline to 50mg Gtube daily, start effexor IR 25mg Gtube 12/08 continue tx. will titrate effexor gradually 12/09 increase effexor IR (given that she is taking it via Gtube) to 25mg po BID, increase remeron to 15mg po qhs. 12/10 Patient quite anxious on approach. Rag Baler asked why she did not let hvac/r service technician examine her genitalia as consult was put in for inflamed labia; she is was not sure why, saying she worried that her leg cast would get in the way... That she was anxious about all the other things going on. Patient said however that she would allow them to examine upon return 12/12 switch effexor IR to XR oral. will be the only medication not given via G- tube. Reason for continued inpatient stay Substantial Risk for: inability to function Time Spent With Patient Time: Total time managing care of this patient today ____ minutes.
[2024-12-12] MEDS: Venlafaxine HCL 25 MG TABLET G-TUBE (09:25)
[2024-12-12] MEDS: Famotidine 20 MG TABLET G-TUBE ×2 (09:25→20:52)
[2024-12-12] MEDS: Sertraline HCL 50 MG TABLET G-TUBE (09:27)
[2024-12-12] MEDS: Nystatin Powder 15 GM BOTTLE 1 APPL TOPICAL ×2 (09:28→20:53)
[2024-12-12] MEDS: Loperamide HCl Oral Liquid 2 MG/15 ML LIQUID 4 MG G-TUBE ×3 (09:29→20:52)
--- NOTE | 2024-12-12 12:25 | PC.NURSE ---
feeding tube changed today 12/12/2024 at 12:00 pm
--- NOTE | 2024-12-12 15:42 | MHC.CLN ---
F/U DIET RX: PUREE DIET PER EDUCATION LIAISON REC 12/05 ALONG WITH TF. APPEARS TO BE TOLERATING CURRENT TUBE FEEDING. PT RECEIVING OSMOLITE 1.5 TF BOLUS 300ML Q 6 HRS WITH 240ML FREE WATER FLUSHES Q 8 HRS PROVIDES 1800KCALS (28KCALS/KG), 75G PROTEIN (1.2G/KG), 2092ML TOTAL WATER FROM FORMULA AND FLUSHES (32ML/KG) DO NOT COMBINE FORMULA AND FLUSHES AT SAME TIME. SKIN WITH MASD TO SACRUM. CONTINUE TO MONITOR TOLERANCE AND LYTES.
[2024-12-12] MEDS: Enoxaparin Sodium 40 MG/0.4 ML SYRINGE SUBCUT (16:59)
[2024-12-12 20:00] VITALS: BP 111/53; PULSE 72; RESP 16; TEMP 36.9; O2SAT 95
[2024-12-12] MEDS: Mirtazapine 15 MG TABLET G-TUBE (20:52)
[2024-12-12 20:55] VITALS: BP 111/54; PULSE 72
[2024-12-13 08:00] VITALS: BP 126/54; PULSE 71; RESP 16; TEMP 36.6; O2SAT 94
[2024-12-13] MEDS: Nystatin Powder 15 GM BOTTLE 1 APPL TOPICAL ×2 (08:30→22:29)
[2024-12-13] MEDS: Loperamide HCl Oral Liquid 2 MG/15 ML LIQUID 4 MG G-TUBE ×3 (08:38→22:21)
[2024-12-13] MEDS: Metoprolol Tartrate 12.5 MG HALFTAB G-TUBE (08:38)
[2024-12-13] MEDS: Venlafaxine HCl ER 75 MG CAP.ER.24H PO (08:39)
[2024-12-13] MEDS: Famotidine 20 MG TABLET G-TUBE ×2 (08:39→22:21)
[2024-12-13] MEDS: Sertraline HCL 25 MG TABLET G-TUBE (08:39)
[2024-12-13] MEDS: Enoxaparin Sodium 40 MG/0.4 ML SYRINGE SUBCUT (18:04)
[2024-12-13] MEDS: oxyCODONE HCl Immed Release 5 MG TABLET PO (18:20)
[2024-12-13 20:00] VITALS: BP 106/53; PULSE 80; RESP 18; TEMP 36.4; O2SAT 96
--- NOTE | 2024-12-13 21:19 | PM.EVENT ---
Event Note Date of Service: 12/13/24 Event Note: Rt hip IMN 11/04/24-hospital unknown Rt Tibial plateau fx Patient is wheelchair bound x8 years Rt hip wbat; in setting of tibial plateau fx--NWB, gait training and strength Rt tibial plateau-NWB x3 months Given patient is wheelchair bound, ok for transfers. Caution to surgical site, NWB RLE Time Spent With Patient Time: Total time managing care of this patient today ____ minutes.
[2024-12-13] MEDS: hydrOXYzine HCL 25 MG TABLET G-TUBE (22:21)
[2024-12-13] MEDS: Mirtazapine 15 MG TABLET G-TUBE (22:21)
[2024-12-13] MEDS: traZODone HCL 50 MG TABLET G-TUBE (22:21)
--- NOTE | 2024-12-13 22:40 | HO.PSYCHPN ---
Subjective Subjective Date of Service: 12/13/24 Reason For Visit: major depressive d/o Subjective Notes: Conditional Voluntary Interim History: Pt slept through the night. Pt denies SI/HI. She report there are a lot of things is not able to do physically, such as swallowing or fully engaging in OT/PT. She reports feeling upset with herself for putting herself in this situation. She states she agrees that at this point she may be LTC. However, there are multiple barries to this plan, including financial as her insurance does not cover LTC. She reports blurry vision, which may be related to venlafaxine IR, we discussed stopping it. Review of Systems Review of Systems No chest pain. No SOB back, knee and hip pain Mental Status Exam Mental Status Exam Narrative: Appearance: wearing hospital gown, lying in bed; in some physical pain due to fractures, hip surgery and chronic osteoarthritis Behavior: guarded, superficially cooperative Psychomotor: lower spasm-like movement of legs, no tremors Speech: clear, normal rate/rhythm/volume, spontaneous TP: Goal oriented TC: Anxious about medical comorbidities Mood: i'm not depressed i'm in pain Affect: congruent SI: denies HI: denies VH/AH: denies Delusions: no overt signs Insight/judgment: Impaired Memory/cog: alert, oriented x 3. pending further cognitive/memory assessments. Diagnostics Vital Signs (24Hr): Vital Signs - 24 hr 12/13/24 08:00 Temperature 97.8 F Pulse Rate 71 Respiratory Rate 16 Blood Pressure 126/54 L Pulse Oximetry 94 Oxygen Delivery Method Room Air BMI result Body Mass Index 27.4 Labs 12/06/24 07:38 12/06/24 07:38 Medications Medications Current Medications Acetaminophen (Acetaminophen 325 Mg Tablet) 650 mg G-TUBE Q6H PRN PRN Reason: Headache/Pain, Scale 1-10 Last Admin: 12/11/24 00:58 Dose: 650 mg Al Hydroxide/Mg Hydroxide (Magnesium Hydrox/Alum Hydrox 30 Ml Oral.Susp) 30 ml G-TUBE Q6H PRN PRN Reason: Heartburn/Nausea Enoxaparin Sodium (Enoxaparin Sodium 40 Mg/0.4 Ml Syringe) 40 mg SUBCUT Q24H [facility] Last Admin: 12/13/24 18:04 Dose: 40 mg Famotidine (Famotidine 20 Mg Tablet) 20 mg G-TUBE BID [facility] Last Admin: 12/13/24 22:21 Dose: 20 mg Hydroxyzine HCl (Hydroxyzine Hcl 25 Mg Tablet) 25 mg G-TUBE Q6H PRN PRN Reason: mild anxiety Last Admin: 12/13/24 22:21 Dose: 25 mg Loperamide HCl (Loperamide Hcl Oral Liquid 2 Mg/15 Ml Liquid) 4 mg G-TUBE TID [facility] Last Admin: 12/13/24 22:21 Dose: 4 mg Magnesium Hydroxide (Milk Of Magnesia 30 Ml Oral.Susp) 30 ml G-TUBE DAILY PRN PRN Reason: Constipation Metoprolol Tartrate (Metoprolol Tartrate 12.5 Mg Halftab) 12.5 mg G-TUBE BID [facility]; Protocol Last Admin: 12/13/24 08:38 Dose: 12.5 mg Mirtazapine (Mirtazapine 15 Mg Tablet) 15 mg G-TUBE BEDTIME [facility] Last Admin: 12/13/24 22:21 Dose: 15 mg Nicotine Polacrilex (Nicotine Polacrilex 2 Mg Gum) 4 mg BUCCAL Q2H PRN PRN Reason: Nicotine Cravings Nystatin (Nystatin Powder 15 Gm Bottle) 1 appl TOPICAL BID [facility]; Protocol Last Admin: 12/13/24 22:29 Dose: 1 appl Oxycodone HCl (Oxycodone Hcl Immed Release 5 Mg Tablet) 5 mg PO Q6H PRN PRN Reason: Pain, Severe (Pain Scale 7-10) Last Admin: 12/13/24 18:20 Dose: 5 mg Sertraline HCl (Sertraline Hcl 25 Mg Tablet) 25 mg G-TUBE DAILY [facility] Last Admin: 12/13/24 08:39 Dose: 25 mg Trazodone HCl (Trazodone Hcl 50 Mg Tablet) 50 mg G-TUBE BEDTIME MRX1 PRN PRN Reason: Insomnia Last Admin: 12/13/24 22:21 Dose: 50 mg Venlafaxine HCl (Venlafaxine Hcl Er 75 Mg Cap.Er.24h) 75 mg PO DAILY [facility] Last Admin: 12/13/24 08:39 Dose: 75 mg Allergies Allergies Allergy/AdvReac Type Severity Reaction Status Date / Time apple Allergy Unknown Verified 11/30/24 22:50 cefuroxime Allergy Unknown Verified 11/30/24 22:50 cephalexin [From Keflex] Allergy Unknown Verified 11/30/24 22:50 ciprofloxacin Allergy Unknown Verified 11/30/24 22:50 clarithromycin Allergy Unknown Verified 11/30/24 22:50 codeine Allergy Unknown Verified 11/30/24 22:50 doxycycline Allergy Unknown Verified 11/30/24 22:50 erythromycin base Allergy Unknown Verified 11/30/24 22:50 furosemide Allergy Unknown Verified 11/30/24 22:50 hydromorphone [From Dilaudid] Allergy Unknown Verified 11/30/24 22:50 indomethacin Allergy Unknown Verified 11/30/24 22:50 Iodinated Contrast Media Allergy Unknown Verified 11/30/24 22:50 iodine Allergy Unknown Verified 11/30/24 22:50 nitrofurantoin Allergy Unknown Verified 11/30/24 22:50 omeprazole Allergy Unknown Verified 11/30/24 22:50 penicillin G Allergy Unknown Verified 11/30/24 22:50 Penicillins Allergy Unknown Verified 11/30/24 22:50 pseudoephedrine Allergy Unknown Verified 11/30/24 22:50 shellfish derived [shellfish] Allergy Unknown Verified 11/30/24 22:50 Sulfa (Sulfonamide Allergy Unknown Verified 11/30/24 22:50 Antibiotics) Assessment & Plan Assessment & Plan (1) MDD (major depressive disorder), recurrent episode, severe: Status: Acute Code(s): F33.2 - Major depressive disorder, recurrent severe without psychotic features (2) Heart failure: Status: Acute Code(s): I50.9 - Heart failure, unspecified (3) Osteoarthritis: Status: Acute Code(s): M19.90 - Unspecified osteoarthritis, unspecified site (4) Thyroid nodule: Status: Acute Code(s): E04.1 - Nontoxic single thyroid nodule Assessment and Plan: TSH 0.23, Free T4 1.06 recommended to have another biopsy. (5) HTN (hypertension): Status: Acute Code(s): I10 - Essential (primary) hypertension (6) GERD (gastroesophageal reflux disease): Status: Acute Code(s): K21.9 - Gastro-esophageal reflux disease without esophagitis Plan Mrs. Nicholas is a 74 year-old woman who was brought via EMS to [facility] ED after falling down the stairs. She sustained a right trochanteric fracture, under went repair on 11/04/2024. She reported this was a suicide attempt. She is vague about events leading to suicide attempt. She declines to talk about her depression and provide more details about it. She does denied any plan or intent to harm herself at this moment but also reports feeling depressed and being in a worse situation than prior to suicide attempt. She was started on sertraline while at [facility]. Sertraline was titrated to 100mg po daily. She does have hx of IBS with diarrhea. She reports increase loose stools and although she suspects may be due to feeding with lactose, also consider exacerbation of IBS related loose stools with sertraline. She reports no improvement so far in terms of depression with current medications. PLAN 1. Admit to S1, CV, 5 mins checks 12/03 - unsure why sertraline has not been changed over to other med given diarrhea/colitis ? will discuss with pt tomorrow- otherwise ctp - change omeprazole to famotidine due to hx allergy- though pt does not remember the allergy- 12/04 -PT consult, GI consult, further consideration about changing ssri, change enteric feeding rate- 12/05 pt does present with slightly brighter and more willing to engage in treatment from multidisciplinary team. awaiting GI consult. 12/06 continue tx. 12/07 lower sertraline to 50mg Gtube daily, start effexor IR 25mg Gtube 12/08 continue tx. will titrate effexor gradually 12/09 increase effexor IR (given that she is taking it via Gtube) to 25mg po BID, increase remeron to 15mg po qhs. 12/10 Patient quite anxious on approach. Taping Foreman asked why she did not let fire ranger examine her genitalia as consult was put in for inflamed labia; she is was not sure why, saying she worried that her leg cast would get in the way... That she was anxious about all the other things going on. Patient said however that she would allow them to examine upon return 12/12 switch effexor IR to XR oral. will be the only medication not given via G-tube. 12/13 continue tx. stop venlafaxine for now, see if it was causing blurry vision. Reason for continued inpatient stay Substantial Risk for: inability to function Time Spent With Patient Time: Total time managing care of this patient today ____ minutes.
[2024-12-14 08:30] VITALS: BP 112/56; PULSE 75; RESP 16; TEMP 36.9; O2SAT 94
[2024-12-14] MEDS: Famotidine 20 MG TABLET G-TUBE ×2 (09:46→21:43)
[2024-12-14] MEDS: Sertraline HCL 25 MG TABLET G-TUBE (09:46)
[2024-12-14] MEDS: oxyCODONE HCl Immed Release 5 MG TABLET PO (09:46)
[2024-12-14] MEDS: Nystatin Powder 15 GM BOTTLE 1 APPL TOPICAL ×2 (09:52→21:47)
--- NOTE | 2024-12-14 11:13 | MHC.CLN ---
F/U DIET RX: PUREE DIET. APPEARS TO BE TOLERATING CURRENT TUBE FEEDING. PT RECEIVING OSMOLITE 1.5 TF BOLUS 300ML Q 6 HRS WITH 240ML FREE WATER FLUSHES Q 8 HRS PROVIDES 1800KCALS (28KCALS/KG), 75G PROTEIN (1.2G/KG), 2092ML TOTAL WATER FROM FORMULA AND FLUSHES (32ML/KG) DO NOT COMBINE FORMULA AND FLUSHES AT SAME TIME. SKIN WITH MASD TO SACRUM. DISCUSSED PUREE DIET WITH PATIENT. DID NOT APPEAR RECEPTIVE TO SELECTING/EATING ANY FOOD ITEMS. TUBE FEEDING PROVIDING ADEQUATE NUTRITION TO MEET ESTIMATED NEEDS. CONTINUE TO MONITOR TOLERANCE, LYTES AND PO INTAKE.
[2024-12-14 14:34] LABS: Thyrotropin Receptor Antibody <1.00 IU/L (<=2.00)
--- NOTE | 2024-12-14 14:35 | HO.PSYCHPN ---
Subjective Subjective Date of Service: 12/14/24 Reason For Visit: major depressive d/o Subjective Notes: Conditional Voluntary Interim History: Pt slept through the night. Pt allowing to be out in common area. She continues to denied SI/HI, but also shame and guilt due to suicide attempt. We had family meeting to discuss plan to transition to LTC. She is working with PT but limited improvement. feedings with Gtube, although encouraged to try oral intake. reports blurry vision, discussed stopping venlafaxine to see if related to this. Review of Systems Review of Systems No chest pain. No SOB back, knee and hip pain Mental Status Exam Mental Status Exam Narrative: Appearance: wearing hospital gown, lying in bed; in some physical pain due to fractures, hip surgery and chronic osteoarthritis Behavior: guarded, superficially cooperative Psychomotor: lower spasm-like movement of legs, no tremors Speech: clear, normal rate/rhythm/volume, spontaneous TP: Goal oriented TC: Anxious about medical comorbidities Mood: i'm not depressed i'm in pain Affect: congruent SI: denies HI: denies VH/AH: denies Delusions: no overt signs Insight/judgment: Impaired Memory/cog: alert, oriented x 3. pending further cognitive/memory assessments. Diagnostics Vital Signs (24Hr): Vital Signs - 24 hr 12/13/24 20:00 12/14/24 08:30 Temperature 97.5 F 98.5 F Pulse Rate 80 75 Respiratory Rate 18 16 Blood Pressure 106/53 L 112/56 L Pulse Oximetry 96 94 Oxygen Delivery Method Room Air Room Air BMI result Body Mass Index 27.4 Labs 12/06/24 07:38 12/06/24 07:38 Labs: Laboratory Results - last 48 hr 12/08/24 19:05 TSH Receptor Ab <1.00 Medications Medications Current Medications Acetaminophen (Acetaminophen 325 Mg Tablet) 650 mg G-TUBE Q6H PRN PRN Reason: Headache/Pain, Scale 1-10 Last Admin: 12/11/24 00:58 Dose: 650 mg Al Hydroxide/Mg Hydroxide (Magnesium Hydrox/Alum Hydrox 30 Ml Oral.Susp) 30 ml G-TUBE Q6H PRN PRN Reason: Heartburn/Nausea Enoxaparin Sodium (Enoxaparin Sodium 40 Mg/0.4 Ml Syringe) 40 mg SUBCUT Q24H [facility] Last Admin: 12/13/24 18:04 Dose: 40 mg Famotidine (Famotidine 20 Mg Tablet) 20 mg G-TUBE BID [facility] Last Admin: 12/14/24 09:46 Dose: 20 mg Hydroxyzine HCl (Hydroxyzine Hcl 25 Mg Tablet) 25 mg G-TUBE Q6H PRN PRN Reason: mild anxiety Last Admin: 12/13/24 22:21 Dose: 25 mg Loperamide HCl (Loperamide Hcl Oral Liquid 2 Mg/15 Ml Liquid) 4 mg G-TUBE TID [facility] Last Admin: 12/14/24 14:33 Dose: Not Given Magnesium Hydroxide (Milk Of Magnesia 30 Ml Oral.Susp) 30 ml G-TUBE DAILY PRN PRN Reason: Constipation Metoprolol Tartrate (Metoprolol Tartrate 12.5 Mg Halftab) 12.5 mg G-TUBE BID [facility]; Protocol Last Admin: 12/13/24 08:38 Dose: 12.5 mg Mirtazapine (Mirtazapine 15 Mg Tablet) 15 mg G-TUBE BEDTIME [facility] Last Admin: 12/13/24 22:21 Dose: 15 mg Nicotine Polacrilex (Nicotine Polacrilex 2 Mg Gum) 4 mg BUCCAL Q2H PRN PRN Reason: Nicotine Cravings Nystatin (Nystatin Powder 15 Gm Bottle) 1 appl TOPICAL BID [facility]; Protocol Last Admin: 12/14/24 09:52 Dose: 1 appl Oxycodone HCl (Oxycodone Hcl Immed Release 5 Mg Tablet) 5 mg PO Q6H PRN PRN Reason: Pain, Severe (Pain Scale 7-10) Last Admin: 12/14/24 09:46 Dose: 5 mg Sertraline HCl (Sertraline Hcl 50 Mg Tablet) 50 mg G-TUBE DAILY [facility] Trazodone HCl (Trazodone Hcl 50 Mg Tablet) 50 mg G-TUBE BEDTIME MRX1 PRN PRN Reason: Insomnia Last Admin: 12/13/24 22:21 Dose: 50 mg Allergies Allergies Allergy/AdvReac Type Severity Reaction Status Date / Time apple Allergy Unknown Verified 11/30/24 22:50 cefuroxime Allergy Unknown Verified 11/30/24 22:50 cephalexin [From Keflex] Allergy Unknown Verified 11/30/24 22:50 ciprofloxacin Allergy Unknown Verified 11/30/24 22:50 clarithromycin Allergy Unknown Verified 11/30/24 22:50 codeine Allergy Unknown Verified 11/30/24 22:50 doxycycline Allergy Unknown Verified 11/30/24 22:50 erythromycin base Allergy Unknown Verified 11/30/24 22:50 furosemide Allergy Unknown Verified 11/30/24 22:50 hydromorphone [From Dilaudid] Allergy Unknown Verified 11/30/24 22:50 indomethacin Allergy Unknown Verified 11/30/24 22:50 Iodinated Contrast Media Allergy Unknown Verified 11/30/24 22:50 iodine Allergy Unknown Verified 11/30/24 22:50 nitrofurantoin Allergy Unknown Verified 11/30/24 22:50 omeprazole Allergy Unknown Verified 11/30/24 22:50 penicillin G Allergy Unknown Verified 11/30/24 22:50 Penicillins Allergy Unknown Verified 11/30/24 22:50 pseudoephedrine Allergy Unknown Verified 11/30/24 22:50 shellfish derived [shellfish] Allergy Unknown Verified 11/30/24 22:50 Sulfa (Sulfonamide Allergy Unknown Verified 11/30/24 22:50 Antibiotics) Assessment & Plan Assessment & Plan (1) MDD (major depressive disorder), recurrent episode, severe: Status: Acute Code(s): F33.2 - Major depressive disorder, recurrent severe without psychotic features (2) Heart failure: Status: Acute Code(s): I50.9 - Heart failure, unspecified (3) Osteoarthritis: Status: Acute Code(s): M19.90 - Unspecified osteoarthritis, unspecified site (4) Thyroid nodule: Status: Acute Code(s): E04.1 - Nontoxic single thyroid nodule Assessment and Plan: TSH 0.23, Free T4 1.06 recommended to have another biopsy. (5) HTN (hypertension): Status: Acute Code(s): I10 - Essential (primary) hypertension (6) GERD (gastroesophageal reflux disease): Status: Acute Code(s): K21.9 - Gastro-esophageal reflux disease without esophagitis Plan Mrs. Nicholas is a 74 year-old woman who was brought via EMS to [facility] ED after falling down the stairs. She sustained a right trochanteric fracture, under went repair on 11/04/2024. She reported this was a suicide attempt. She is vague about events leading to suicide attempt. She declines to talk about her depression and provide more details about it. She does denied any plan or intent to harm herself at this moment but also reports feeling depressed and being in a worse situation than prior to suicide attempt. She was started on sertraline while at [facility]. Sertraline was titrated to 100mg po daily. She does have hx of IBS with diarrhea. She reports increase loose stools and although she suspects may be due to feeding with lactose, also consider exacerbation of IBS related loose stools with sertraline. She reports no improvement so far in terms of depression with current medications. PLAN 1. Admit to S1, CV, 5 mins checks 12/03 - unsure why sertraline has not been changed over to other med given diarrhea/colitis ? will discuss with pt tomorrow- otherwise ctp - change omeprazole to famotidine due to hx allergy- though pt does not remember the allergy- 12/04 -PT consult, GI consult, further consideration about changing ssri, change enteric feeding rate- 12/05 pt does present with slightly brighter and more willing to engage in treatment from multidisciplinary team. awaiting GI consult. 12/06 continue tx. 12/07 lower sertraline to 50mg Gtube daily, start effexor IR 25mg Gtube 12/08 continue tx. will titrate effexor gradually 12/09 increase effexor IR (given that she is taking it via Gtube) to 25mg po BID, increase remeron to 15mg po qhs. 12/10 Patient quite anxious on approach. [employer] asked why she did not let butcher fish examine her genitalia as consult was put in for inflamed labia; she is was not sure why, saying she worried that her leg cast would get in the way... That she was anxious about all the other things going on. Patient said however that she would allow them to examine upon return 12/12 switch effexor IR to XR oral. will be the only medication not given via G-tube. 12/13 continue tx. stop venlafaxine for now, see if it was causing blurry vision. 12/14 continue tx. Reason for continued inpatient stay Substantial Risk for: inability to function Time Spent With Patient Time: Total time managing care of this patient today ____ minutes.
[2024-12-14] MEDS: Enoxaparin Sodium 40 MG/0.4 ML SYRINGE SUBCUT (16:52)
[2024-12-14 20:00] VITALS: BP 110/54; PULSE 77; RESP 16; TEMP 36.3; O2SAT 95
[2024-12-14] MEDS: traZODone HCL 50 MG TABLET G-TUBE (21:44)
[2024-12-14] MEDS: Mirtazapine 15 MG TABLET G-TUBE (21:44)
[2024-12-14] MEDS: Loperamide HCl Oral Liquid 2 MG/15 ML LIQUID 4 MG G-TUBE (21:44)
[2024-12-14] MEDS: hydrOXYzine HCL 25 MG TABLET G-TUBE (21:44)
[2024-12-15 09:16] VITALS: BP 118/54; PULSE 70; RESP 20; TEMP 36.9; O2SAT 95
[2024-12-15] MEDS: Sertraline HCL 50 MG TABLET G-TUBE (09:18)
[2024-12-15] MEDS: Famotidine 20 MG TABLET G-TUBE ×2 (09:19→21:11)
[2024-12-15] MEDS: oxyCODONE HCl Immed Release 5 MG TABLET PO (09:22)
[2024-12-15] MEDS: Loperamide HCl Oral Liquid 2 MG/15 ML LIQUID 4 MG G-TUBE ×2 (09:39→14:51)
[2024-12-15] MEDS: Nystatin Powder 15 GM BOTTLE 1 APPL TOPICAL ×2 (09:39→21:18)
[2024-12-15] MEDS: Enoxaparin Sodium 40 MG/0.4 ML SYRINGE SUBCUT (16:46)
--- NOTE | 2024-12-15 17:07 | HO.PSYCHPN ---
Subjective Subjective Date of Service: 12/15/24 Reason For Visit: major depressive d/o Subjective Notes: Conditional Voluntary Interim History: Pt slept through the night. Pt allowing to be out in common area. She continues to denied SI/HI. She tried some oral food, and appears more open to continue doing so. If consistent improvement with oral intake may revisit gtube. She also reports feels gtube placement may have move. ordered consult to surgeon. Will hold on antidepressant adjustment, per patient as she reports continues to have blurry vision. Review of Systems Review of Systems No chest pain. No SOB back, knee and hip pain Mental Status Exam Mental Status Exam Narrative: Appearance: wearing hospital gown, lying in bed; in some physical pain due to fractures, hip surgery and chronic osteoarthritis Behavior: guarded, superficially cooperative Psychomotor: lower spasm-like movement of legs, no tremors Speech: clear, normal rate/rhythm/volume, spontaneous TP: Goal oriented TC: Anxious about medical comorbidities Mood: i'm not depressed i'm in pain Affect: congruent SI: denies HI: denies VH/AH: denies Delusions: no overt signs Insight/judgment: Impaired Memory/cog: alert, oriented x 3. pending further cognitive/memory assessments. Diagnostics Vital Signs (24Hr): Vital Signs - 24 hr 12/14/24 20:00 12/15/24 09:16 Temperature 97.3 F 98.4 F Pulse Rate 77 70 Respiratory Rate 16 20 Blood Pressure 110/54 L 118/54 L Pulse Oximetry 95 95 Oxygen Delivery Method Room Air Room Air BMI result Body Mass Index 27.4 Labs 12/06/24 07:38 12/06/24 07:38 Labs: Laboratory Results - last 48 hr 12/08/24 19:05 TSH Receptor Ab <1.00 Medications Medications Current Medications Acetaminophen (Acetaminophen 325 Mg Tablet) 650 mg G-TUBE Q6H PRN PRN Reason: Headache/Pain, Scale 1-10 Last Admin: 12/11/24 00:58 Dose: 650 mg Al Hydroxide/Mg Hydroxide (Magnesium Hydrox/Alum Hydrox 30 Ml Oral.Susp) 30 ml G-TUBE Q6H PRN PRN Reason: Heartburn/Nausea Enoxaparin Sodium (Enoxaparin Sodium 40 Mg/0.4 Ml Syringe) 40 mg SUBCUT Q24H [facility] Last Admin: 12/15/24 16:46 Dose: 40 mg Famotidine (Famotidine 20 Mg Tablet) 20 mg G-TUBE BID [facility] Last Admin: 12/15/24 09:19 Dose: 20 mg Hydroxyzine HCl (Hydroxyzine Hcl 25 Mg Tablet) 25 mg G-TUBE Q6H PRN PRN Reason: mild anxiety Last Admin: 12/14/24 21:44 Dose: 25 mg Loperamide HCl (Loperamide Hcl Oral Liquid 2 Mg/15 Ml Liquid) 4 mg G-TUBE TID [facility] Last Admin: 12/15/24 14:51 Dose: 4 mg Magnesium Hydroxide (Milk Of Magnesia 30 Ml Oral.Susp) 30 ml G-TUBE DAILY PRN PRN Reason: Constipation Metoprolol Tartrate (Metoprolol Tartrate 12.5 Mg Halftab) 12.5 mg G-TUBE BID [facility]; Protocol Last Admin: 12/13/24 08:38 Dose: 12.5 mg Mirtazapine (Mirtazapine 15 Mg Tablet) 15 mg G-TUBE BEDTIME [facility] Last Admin: 12/14/24 21:44 Dose: 15 mg Nicotine Polacrilex (Nicotine Polacrilex 2 Mg Gum) 4 mg BUCCAL Q2H PRN PRN Reason: Nicotine Cravings Nystatin (Nystatin Powder 15 Gm Bottle) 1 appl TOPICAL BID [facility]; Protocol Last Admin: 12/15/24 09:39 Dose: 1 appl Oxycodone HCl (Oxycodone Hcl Immed Release 5 Mg Tablet) 5 mg PO Q6H PRN PRN Reason: Pain, Severe (Pain Scale 7-10) Last Admin: 12/15/24 09:22 Dose: 5 mg Sertraline HCl (Sertraline Hcl 50 Mg Tablet) 50 mg G-TUBE DAILY [facility] Last Admin: 12/15/24 09:18 Dose: 50 mg Trazodone HCl (Trazodone Hcl 50 Mg Tablet) 50 mg G-TUBE BEDTIME MRX1 PRN PRN Reason: Insomnia Last Admin: 12/14/24 21:44 Dose: 50 mg Allergies Allergies Allergy/AdvReac Type Severity Reaction Status Date / Time apple Allergy Unknown Verified 11/30/24 22:50 cefuroxime Allergy Unknown Verified 11/30/24 22:50 cephalexin [From Keflex] Allergy Unknown Verified 11/30/24 22:50 ciprofloxacin Allergy Unknown Verified 11/30/24 22:50 clarithromycin Allergy Unknown Verified 11/30/24 22:50 codeine Allergy Unknown Verified 11/30/24 22:50 doxycycline Allergy Unknown Verified 11/30/24 22:50 erythromycin base Allergy Unknown Verified 11/30/24 22:50 furosemide Allergy Unknown Verified 11/30/24 22:50 hydromorphone [From Dilaudid] Allergy Unknown Verified 11/30/24 22:50 indomethacin Allergy Unknown Verified 11/30/24 22:50 Iodinated Contrast Media Allergy Unknown Verified 11/30/24 22:50 iodine Allergy Unknown Verified 11/30/24 22:50 nitrofurantoin Allergy Unknown Verified 11/30/24 22:50 omeprazole Allergy Unknown Verified 11/30/24 22:50 penicillin G Allergy Unknown Verified 11/30/24 22:50 Penicillins Allergy Unknown Verified 11/30/24 22:50 pseudoephedrine Allergy Unknown Verified 11/30/24 22:50 shellfish derived [shellfish] Allergy Unknown Verified 11/30/24 22:50 Sulfa (Sulfonamide Allergy Unknown Verified 11/30/24 22:50 Antibiotics) Assessment & Plan Assessment & Plan (1) MDD (major depressive disorder), recurrent episode, severe: Status: Acute Code(s): F33.2 - Major depressive disorder, recurrent severe without psychotic features (2) Heart failure: Status: Acute Code(s): I50.9 - Heart failure, unspecified (3) Osteoarthritis: Status: Acute Code(s): M19.90 - Unspecified osteoarthritis, unspecified site (4) Thyroid nodule: Status: Acute Code(s): E04.1 - Nontoxic single thyroid nodule Assessment and Plan: TSH 0.23, Free T4 1.06 recommended to have another biopsy. (5) HTN (hypertension): Status: Acute Code(s): I10 - Essential (primary) hypertension (6) GERD (gastroesophageal reflux disease): Status: Acute Code(s): K21.9 - Gastro-esophageal reflux disease without esophagitis Plan Mrs. Nicholas is a 74 year-old woman who was brought via EMS to [facility] ED after falling down the stairs. She sustained a right trochanteric fracture, under went repair on 11/04/2024. She reported this was a suicide attempt. She is vague about events leading to suicide attempt. She declines to talk about her depression and provide more details about it. She does denied any plan or intent to harm herself at this moment but also reports feeling depressed and being in a worse situation than prior to suicide attempt. She was started on sertraline while at [facility]. Sertraline was titrated to 100mg po daily. She does have hx of IBS with diarrhea. She reports increase loose stools and although she suspects may be due to feeding with lactose, also consider exacerbation of IBS related loose stools with sertraline. She reports no improvement so far in terms of depression with current medications. PLAN 1. Admit to S1, CV, 5 mins checks 12/03 - unsure why sertraline has not been changed over to other med given diarrhea/colitis ? will discuss with pt tomorrow- otherwise ctp - change omeprazole to famotidine due to hx allergy- though pt does not remember the allergy- 12/04 -PT consult, GI consult, further consideration about changing ssri, change enteric feeding rate- 12/05 pt does present with slightly brighter and more willing to engage in treatment from multidisciplinary team. awaiting GI consult. 12/06 continue tx. 12/07 lower sertraline to 50mg Gtube daily, start effexor IR 25mg Gtube 12/08 continue tx. will titrate effexor gradually 12/09 increase effexor IR (given that she is taking it via Gtube) to 25mg po BID, increase remeron to 15mg po qhs. 12/10 Patient quite anxious on approach. [employer] asked why she did not let water supervisor examine her genitalia as consult was put in for inflamed labia; she is was not sure why, saying she worried that her leg cast would get in the way... That she was anxious about all the other things going on. Patient said however that she would allow them to examine upon return 12/12 switch effexor IR to XR oral. will be the only medication not given via G-tube. 12/13 continue tx. stop venlafaxine for now, see if it was causing blurry vision. 12/14 continue tx. 12/15 continue tx. ordered surgeon consult for placement of gtube. Reason for continued inpatient stay Substantial Risk for: inability to function Time Spent With Patient Time: Total time managing care of this patient today ____ minutes.
[2024-12-15 20:00] VITALS: BP 115/66; PULSE 76; RESP 16; TEMP 36.9; O2SAT 95
[2024-12-15] MEDS: Mirtazapine 15 MG TABLET G-TUBE (21:11)
--- NOTE | 2024-12-16 03:18 | PC.NURSE ---
Patient c/o not feeling right . Patient had mentioned earlier that a COVID + patient had briefly entered her room and she hoped she didn't get it. T- 97'9, HR- 81, RR-16, BP- 117/56, SPO2- 97%. Denies pain & anxiety, PRNs offered and refused. Patient again reassured that surgeon will be coming to check PEG placement and that stomach content is aspirated with each flush, medication and feeding. Will continue to monitor.
[2024-12-16 03:25] VITALS: BP 117/56; PULSE 81; RESP 16; TEMP 36.6; O2SAT 97
[2024-12-16 08:00] VITALS: BP 120/56; PULSE 73; RESP 18; TEMP 36.7; O2SAT 95
[2024-12-16] MEDS: Loperamide HCl Oral Liquid 2 MG/15 ML LIQUID 4 MG G-TUBE ×3 (09:45→21:12)
[2024-12-16] MEDS: Famotidine 20 MG TABLET G-TUBE ×2 (09:45→21:12)
[2024-12-16] MEDS: Sertraline HCL 50 MG TABLET G-TUBE (09:46)
--- NOTE | 2024-12-16 10:21 | HO.PSYCHPN ---
Subjective Subjective Date of Service: 12/16/24 Reason For Visit: major depressive d/o Subjective Notes: Conditional Voluntary Interim History: Pt slept through the night. Pt reports having pain. She also reports feeling full. She denies SI/HI. She reports she is trying to be more active and participate in PT. She reports less loose stools and took half dose of scheduled loperamide. No behavioral concerns. Review of Systems Review of Systems No chest pain. No SOB back, knee and hip pain Mental Status Exam Mental Status Exam Narrative: Appearance: wearing hospital gown, lying in bed; in some physical pain due to fractures, hip surgery and chronic osteoarthritis Behavior: guarded, superficially cooperative Psychomotor: lower spasm-like movement of legs, no tremors Speech: clear, normal rate/rhythm/volume, spontaneous TP: Goal oriented TC: Anxious about medical comorbidities Mood: i'm not depressed i'm in pain Affect: congruent SI: denies HI: denies VH/AH: denies Delusions: no overt signs Insight/judgment: Impaired Memory/cog: alert, oriented x 3. pending further cognitive/memory assessments. Diagnostics Vital Signs (24Hr): Vital Signs - 24 hr 12/15/24 20:00 12/16/24 03:25 12/16/24 08:00 Temperature 98.4 F 97.9 F 98.1 F Pulse Rate 76 81 73 Respiratory Rate 16 16 18 Blood Pressure 115/66 117/56 L 120/56 L Pulse Oximetry 95 97 95 Oxygen Delivery Method Room Air Room Air Room Air BMI result Body Mass Index 27.4 Labs 12/06/24 07:38 12/06/24 07:38 Labs: Laboratory Results - last 48 hr 12/08/24 19:05 TSH Receptor Ab <1.00 Medications Medications Current Medications Acetaminophen (Acetaminophen 325 Mg Tablet) 650 mg G-TUBE Q6H PRN PRN Reason: Headache/Pain, Scale 1-10 Last Admin: 12/11/24 00:58 Dose: 650 mg Al Hydroxide/Mg Hydroxide (Magnesium Hydrox/Alum Hydrox 30 Ml Oral.Susp) 30 ml G-TUBE Q6H PRN PRN Reason: Heartburn/Nausea Enoxaparin Sodium (Enoxaparin Sodium 40 Mg/0.4 Ml Syringe) 40 mg SUBCUT Q24H [facility] Last Admin: 12/15/24 16:46 Dose: 40 mg Famotidine (Famotidine 20 Mg Tablet) 20 mg G-TUBE BID [facility] Last Admin: 12/16/24 09:45 Dose: 20 mg Hydroxyzine HCl (Hydroxyzine Hcl 25 Mg Tablet) 25 mg G-TUBE Q6H PRN PRN Reason: mild anxiety Last Admin: 12/14/24 21:44 Dose: 25 mg Loperamide HCl (Loperamide Hcl Oral Liquid 2 Mg/15 Ml Liquid) 4 mg G-TUBE TID [facility] Last Admin: 12/16/24 09:45 Dose: 2 mg Magnesium Hydroxide (Milk Of Magnesia 30 Ml Oral.Susp) 30 ml G-TUBE DAILY PRN PRN Reason: Constipation Metoprolol Tartrate (Metoprolol Tartrate 12.5 Mg Halftab) 12.5 mg G-TUBE BID [facility]; Protocol Last Admin: 12/13/24 08:38 Dose: 12.5 mg Mirtazapine (Mirtazapine 15 Mg Tablet) 15 mg G-TUBE BEDTIME [facility] Last Admin: 12/15/24 21:11 Dose: 15 mg Nicotine Polacrilex (Nicotine Polacrilex 2 Mg Gum) 4 mg BUCCAL Q2H PRN PRN Reason: Nicotine Cravings Nystatin (Nystatin Powder 15 Gm Bottle) 1 appl TOPICAL BID [facility]; Protocol Last Admin: 12/15/24 21:18 Dose: 1 appl Oxycodone HCl (Oxycodone Hcl Immed Release 5 Mg Tablet) 5 mg PO Q6H PRN PRN Reason: Pain, Severe (Pain Scale 7-10) Last Admin: 12/15/24 09:22 Dose: 5 mg Sertraline HCl (Sertraline Hcl 50 Mg Tablet) 50 mg G-TUBE DAILY [facility] Last Admin: 12/16/24 09:46 Dose: 50 mg Trazodone HCl (Trazodone Hcl 50 Mg Tablet) 50 mg G-TUBE BEDTIME MRX1 PRN PRN Reason: Insomnia Last Admin: 12/14/24 21:44 Dose: 50 mg Allergies Allergies Allergy/AdvReac Type Severity Reaction Status Date / Time apple Allergy Unknown Verified 11/30/24 22:50 cefuroxime Allergy Unknown Verified 11/30/24 22:50 cephalexin [From Keflex] Allergy Unknown Verified 11/30/24 22:50 ciprofloxacin Allergy Unknown Verified 11/30/24 22:50 clarithromycin Allergy Unknown Verified 11/30/24 22:50 codeine Allergy Unknown Verified 11/30/24 22:50 doxycycline Allergy Unknown Verified 11/30/24 22:50 erythromycin base Allergy Unknown Verified 11/30/24 22:50 furosemide Allergy Unknown Verified 11/30/24 22:50 hydromorphone [From Dilaudid] Allergy Unknown Verified 11/30/24 22:50 indomethacin Allergy Unknown Verified 11/30/24 22:50 Iodinated Contrast Media Allergy Unknown Verified 11/30/24 22:50 iodine Allergy Unknown Verified 11/30/24 22:50 nitrofurantoin Allergy Unknown Verified 11/30/24 22:50 omeprazole Allergy Unknown Verified 11/30/24 22:50 penicillin G Allergy Unknown Verified 11/30/24 22:50 Penicillins Allergy Unknown Verified 11/30/24 22:50 pseudoephedrine Allergy Unknown Verified 11/30/24 22:50 shellfish derived [shellfish] Allergy Unknown Verified 11/30/24 22:50 Sulfa (Sulfonamide Allergy Unknown Verified 11/30/24 22:50 Antibiotics) Assessment & Plan Assessment & Plan (1) MDD (major depressive disorder), recurrent episode, severe: Status: Acute Code(s): F33.2 - Major depressive disorder, recurrent severe without psychotic features (2) Heart failure: Status: Acute Code(s): I50.9 - Heart failure, unspecified (3) Osteoarthritis: Status: Acute Code(s): M19.90 - Unspecified osteoarthritis, unspecified site (4) Thyroid nodule: Status: Acute Code(s): E04.1 - Nontoxic single thyroid nodule Assessment and Plan: TSH 0.23, Free T4 1.06 recommended to have another biopsy. (5) HTN (hypertension): Status: Acute Code(s): I10 - Essential (primary) hypertension (6) GERD (gastroesophageal reflux disease): Status: Acute Code(s): K21.9 - Gastro-esophageal reflux disease without esophagitis Plan Mrs. Nicholas is a 74 year-old woman who was brought via EMS to [facility] ED after falling down the stairs. She sustained a right trochanteric fracture, under went repair on 11/04/2024. She reported this was a suicide attempt. She is vague about events leading to suicide attempt. She declines to talk about her depression and provide more details about it. She does denied any plan or intent to harm herself at this moment but also reports feeling depressed and being in a worse situation than prior to suicide attempt. She was started on sertraline while at [facility]. Sertraline was titrated to 100mg po daily. She does have hx of IBS with diarrhea. She reports increase loose stools and although she suspects may be due to feeding with lactose, also consider exacerbation of IBS related loose stools with sertraline. She reports no improvement so far in terms of depression with current medications. PLAN 1. Admit to S1, CV, 5 mins checks 12/03 - unsure why sertraline has not been changed over to other med given diarrhea/colitis ? will discuss with pt tomorrow- otherwise ctp - change omeprazole to famotidine due to hx allergy- though pt does not remember the allergy- 12/04 -PT consult, GI consult, further consideration about changing ssri, change enteric feeding rate- 12/05 pt does present with slightly brighter and more willing to engage in treatment from multidisciplinary team. awaiting GI consult. 12/06 continue tx. 12/07 lower sertraline to 50mg Gtube daily, start effexor IR 25mg Gtube 12/08 continue tx. will titrate effexor gradually 12/09 increase effexor IR (given that she is taking it via Gtube) to 25mg po BID, increase remeron to 15mg po qhs. 12/10 Patient quite anxious on approach. [employer] Servicer asked why she did not let promotions associate examine her genitalia as consult was put in for inflamed labia; she is was not sure why, saying she worried that her leg cast would get in the way... That she was anxious about all the other things going on. Patient said however that she would allow them to examine upon return 12/12 switch effexor IR to XR oral. will be the only medication not given via G-tube. 12/13 continue tx. stop venlafaxine for now, see if it was causing blurry vision. 12/14 continue tx. 12/15 continue tx. ordered surgeon consult for placement of gtube. 12/16 continue tx. Reason for continued inpatient stay Substantial Risk for: inability to function Time Spent With Patient Time: Total time managing care of this patient today ____ minutes.
[2024-12-16] MEDS: Nystatin Powder 15 GM BOTTLE 1 APPL TOPICAL ×2 (12:25→21:19)
--- NOTE | 2024-12-16 15:08 | MHC.CLN ---
F/U RECEIVES BOLUS TUBE FEEDING AND PUREE DIET. APPEARS TO BE TOLERATING CURRENT TUBE FEEDING. PT RECEIVING OSMOLITE 1.5 TF BOLUS 300ML Q 6 HRS WITH 240ML FREE WATER FLUSHES Q 8 HRS PROVIDES 1800KCALS (28KCALS/KG), 75G PROTEIN (1.2G/KG), 2092ML TOTAL WATER FROM FORMULA AND FLUSHES (32ML/KG) DO NOT COMBINE FORMULA AND FLUSHES AT SAME TIME. HX POOR PO. TUBE FEEDING PROVIDING ADEQUATE NUTRITION TO MEET ESTIMATED NEEDS. CONTINUE TO MONITOR TOLERANCE, LYTES AND PO INTAKE.
[2024-12-16] MEDS: Enoxaparin Sodium 40 MG/0.4 ML SYRINGE SUBCUT (16:38)
--- NOTE | 2024-12-16 17:32 | P.CONGS_ITS ---
History of Present Illness Consult details Consult date: 12/16/24 Narrative: Patient was 74-year-old female currently an inpatient in the psychiatric [facility]. Consult has been made for G-tube evaluation. Patient was states hears gurgling from a G-tube. This was placed according with the patient 1 month ago at [facility]. In the meantime, the G-tube has been functioning well and her nurse has been using this for among other things applications of meds without any difficulties or complaints. Patient was no other GI issues were symptoms. Chart was reviewed and patient evaluated PMFSH Past Medical History Medical History Breast cancer, right Prediabetes HTN (hypertension) GERD (gastroesophageal reflux disease) Fracture of right tibial plateau Closed right hip fracture Pulmonary embolism DVT (deep venous thrombosis) Dysphagia HLD (hyperlipidemia) Thyroid nodule Social History Social History Household Members: Children Household Members Other:: son and daughter Housing: House Do you presently have visiting nurse or other home services: No Comment: refuses yellow socks Patient Tobacco Use Status: Never used Tobacco Smoked in Last 30 Days: No Patient Interested in Nicotine Replacement: No Patient Given Instructions on How to Stop Smoking: No Second Hand Smoke Exposure: No Use of substances other than those prescribed or required for medical reasons: No Currently Displaying Signs/Symptoms of Drug Intoxication Withdrawal: No Any prior treatment program specific to substance use: No Have you been hit, kicked, punched, or otherwise hurt by someone within the past year? If so, by whom?: No Do you feel safe in your current relationship?: No Current Relationship Is there a partner from a previous relationship who is making you feel unsafe now?: No Advance Directives: No Advance Directives Information Provided: No Do you have thoughts of harming others: None Do you have a plan to hurt others: No Plan Recently lost weight without trying: Unsure Nutrition Risks: Difficulty swallowing Patient : No : No Poor oral hygiene: No service: No Sexual orientation: Straight/Heterosexual Meds Allergies Allergy/AdvReac Type Severity Reaction Status Date / Time apple Allergy Unknown Verified 11/30/24 22:50 cefuroxime Allergy Unknown Verified 11/30/24 22:50 cephalexin [From Keflex] Allergy Unknown Verified 11/30/24 22:50 ciprofloxacin Allergy Unknown Verified 11/30/24 22:50 clarithromycin Allergy Unknown Verified 11/30/24 22:50 codeine Allergy Unknown Verified 11/30/24 22:50 doxycycline Allergy Unknown Verified 11/30/24 22:50 erythromycin base Allergy Unknown Verified 11/30/24 22:50 furosemide Allergy Unknown Verified 11/30/24 22:50 hydromorphone [From Dilaudid] Allergy Unknown Verified 11/30/24 22:50 indomethacin Allergy Unknown Verified 11/30/24 22:50 Iodinated Contrast Media Allergy Unknown Verified 11/30/24 22:50 iodine Allergy Unknown Verified 11/30/24 22:50 nitrofurantoin Allergy Unknown Verified 11/30/24 22:50 omeprazole Allergy Unknown Verified 11/30/24 22:50 penicillin G Allergy Unknown Verified 11/30/24 22:50 Penicillins Allergy Unknown Verified 11/30/24 22:50 pseudoephedrine Allergy Unknown Verified 11/30/24 22:50 shellfish derived [shellfish] Allergy Unknown Verified 11/30/24 22:50 Sulfa (Sulfonamide Allergy Unknown Verified 11/30/24 22:50 Antibiotics) Active Medications: Current Medications Acetaminophen (Acetaminophen 325 Mg Tablet) 650 mg G-TUBE Q6H PRN PRN Reason: Headache/Pain, Scale 1-10 Last Admin: 12/11/24 00:58 Dose: 650 mg Al Hydroxide/Mg Hydroxide (Magnesium Hydrox/Alum Hydrox 30 Ml Oral.Susp) 30 ml G-TUBE Q6H PRN PRN Reason: Heartburn/Nausea Enoxaparin Sodium (Enoxaparin Sodium 40 Mg/0.4 Ml Syringe) 40 mg SUBCUT Q24H [facility] Last Admin: 12/16/24 16:38 Dose: 40 mg Famotidine (Famotidine 20 Mg Tablet) 20 mg G-TUBE BID [facility] Last Admin: 12/16/24 09:45 Dose: 20 mg Hydroxyzine HCl (Hydroxyzine Hcl 25 Mg Tablet) 25 mg G-TUBE Q6H PRN PRN Reason: mild anxiety Last Admin: 12/14/24 21:44 Dose: 25 mg Loperamide HCl (Loperamide Hcl Oral Liquid 2 Mg/15 Ml Liquid) 4 mg G-TUBE TID [facility] Last Admin: 12/16/24 14:58 Dose: 4 mg Magnesium Hydroxide (Milk Of Magnesia 30 Ml Oral.Susp) 30 ml G-TUBE DAILY PRN PRN Reason: Constipation Metoprolol Tartrate (Metoprolol Tartrate 12.5 Mg Halftab) 12.5 mg G-TUBE BID [facility]; Protocol Last Admin: 12/13/24 08:38 Dose: 12.5 mg Mirtazapine (Mirtazapine 15 Mg Tablet) 15 mg G-TUBE BEDTIME [facility] Last Admin: 12/15/24 21:11 Dose: 15 mg Nicotine Polacrilex (Nicotine Polacrilex 2 Mg Gum) 4 mg BUCCAL Q2H PRN PRN Reason: Nicotine Cravings Nystatin (Nystatin Powder 15 Gm Bottle) 1 appl TOPICAL BID [facility]; Protocol Last Admin: 12/16/24 12:25 Dose: 1 appl Oxycodone HCl (Oxycodone Hcl Immed Release 5 Mg Tablet) 5 mg PO Q6H PRN PRN Reason: Pain, Severe (Pain Scale 7-10) Last Admin: 12/15/24 09:22 Dose: 5 mg Sertraline HCl (Sertraline Hcl 50 Mg Tablet) 50 mg G-TUBE DAILY [facility] Last Admin: 12/16/24 09:46 Dose: 50 mg Trazodone HCl (Trazodone Hcl 50 Mg Tablet) 50 mg G-TUBE BEDTIME MRX1 PRN PRN Reason: Insomnia Last Admin: 12/14/24 21:44 Dose: 50 mg Home Medications ?Medication ?Instructions ?Recorded ?Confirmed ?Last Taken ?Type acetaminophen 500 mg tablet 1,000 mg PO Q6H PRN Pain 11/30/24 11/30/24 Unknown History enoxaparin 40 mg/0.4 mL 40 mg subcut DAILY 11/30/24 11/30/24 Unknown History subcutaneous syringe lansoprazole 30 mg capsule,delayed 30 mg PO DAILY 11/30/24 11/30/24 Unknown History release loperamide 1 mg/5 mL oral liquid 2 mg PO Q6H PRN Diarrhea 11/30/24 11/30/24 Unknown History metoprolol tartrate 25 mg tablet 12.5 mg PO BID 11/30/24 11/30/24 Unknown History mirtazapine 7.5 mg tablet 7.5 mg PO BEDTIME 11/30/24 11/30/24 Unknown History oxycodone 5 mg tablet 5 mg PO Q6H PRN Pain 11/30/24 11/30/24 Unknown History sertraline 100 mg tablet 100 mg PO DAILY 11/30/24 11/30/24 Unknown History Physical Exam 2 Vital Signs: Vital Signs: Last Vital Signs Temp 98.1 F 12/16/24 08:00 Pulse 73 12/16/24 08:00 Resp 18 12/16/24 08:00 BP 120/56 L 12/16/24 08:00 Pulse Ox 95 12/16/24 08:00 O2 Del Method Room Air 12/16/24 08:00 BMI result Body Mass Index 27.4 GI: Other: Abdomen is soft, benign. G-tube was in place. No evidence of any drainage around the tube. No evidence of any guarding, rebound, or rigidity. Abdomen is benign. Results Labs 12/06/24 07:38 12/06/24 07:38 Labs: All other labs normal. Assessment and Plan (1) Gastrostomy tube in place: Status: Acute Plan At present, no concerning issues regarding G-tube. Nurse as stated that has been used throughout the patient's hospitalization and she has had no issues with flushing or refusing meds. Continue using G-tube. We will follow up p.r.n.. No surgical issues at this time. Procedures Date of Service Date of Service: 12/16/24
[2024-12-16 20:00] VITALS: BP 125/61; PULSE 77; RESP 16; TEMP 36.2; O2SAT 96
[2024-12-16] MEDS: Mirtazapine 15 MG TABLET G-TUBE (21:12)
[2024-12-16] MEDS: oxyCODONE HCl Immed Release 5 MG TABLET PO (21:12)
[2024-12-17] MEDS: Acetaminophen 325 MG TABLET 650 MG G-TUBE (01:04)
[2024-12-17 08:00] VITALS: BP 118/55; PULSE 69; RESP 18; TEMP 36.2; O2SAT 98
--- NOTE | 2024-12-17 09:28 | HO.PSYCHPN ---
Subjective Subjective Date of Service: 12/17/24 Reason For Visit: major depressive d/o Subjective Notes: Conditional Voluntary Healthcare Proxy: No Guardianship: No Medical Problems Affecting Mental Status: Yes (possible ecoli infection) Interim History: 74 yo with ongoing somatic, gi complaints now fearful that tpo is regurgitating despite being seen by surgeon who examined site yesterday and felt all was ok -= Pt continues to co abd pain and bloating- This provider reviewed gi note and stool test which was positive for ecoli epec There is not a set treatment beyond hydrating and good hygiene- Medication Compliance: Yes Side effects from medications: No Attending Groups: No Review of Systems Acute medical concerns: Yes ongoing co gi issues pt hoping to get xray= Review of Systems: intermittent diarrhea unchanged and also bloating and abd p ain Mental Status Exam Mental Status Exam Patient Appearance: Well Grooomed and Appropriate Patient Orientation: Person, Place, Time and Situation Level of Consciousness: Awake and Appropriate Patient Behavior: Appropriate and Cooperative Mood Description: Anxious Affect Description: Apprehensive Patient Cognition Impaired: No Ability to Follow Directions: Fair Speech Pattern: Clear and Perseverating Hallucinations: None Delusions: Not Present Thought Process: Intact and Goal Oriented Thought Content: positive for Perseveration (somatic focus) Depressive Symptoms: Increased Anxiety Judgement: Fair Diagnostics Vital Signs (24Hr): Vital Signs - 24 hr 12/16/24 20:00 Temperature 97.2 F Pulse Rate 77 Respiratory Rate 16 Blood Pressure 125/61 Pulse Oximetry 96 Oxygen Delivery Method Room Air BMI result Body Mass Index 27.4 Labs 12/06/24 07:38 12/06/24 07:38 Medications Medications Current Medications Acetaminophen (Acetaminophen 325 Mg Tablet) 650 mg G-TUBE Q6H PRN PRN Reason: Headache/Pain, Scale 1-10 Last Admin: 12/17/24 01:04 Dose: 650 mg Al Hydroxide/Mg Hydroxide (Magnesium Hydrox/Alum Hydrox 30 Ml Oral.Susp) 30 ml G-TUBE Q6H PRN PRN Reason: Heartburn/Nausea Enoxaparin Sodium (Enoxaparin Sodium 40 Mg/0.4 Ml Syringe) 40 mg SUBCUT Q24H [facility] Last Admin: 12/16/24 16:38 Dose: 40 mg Famotidine (Famotidine 20 Mg Tablet) 20 mg G-TUBE BID [facility] Last Admin: 12/16/24 21:12 Dose: 20 mg Hydroxyzine HCl (Hydroxyzine Hcl 25 Mg Tablet) 25 mg G-TUBE Q6H PRN PRN Reason: mild anxiety Last Admin: 12/14/24 21:44 Dose: 25 mg Loperamide HCl (Loperamide Hcl Oral Liquid 2 Mg/15 Ml Liquid) 4 mg G-TUBE TID [facility] Last Admin: 12/16/24 21:12 Dose: 4 mg Magnesium Hydroxide (Milk Of Magnesia 30 Ml Oral.Susp) 30 ml G-TUBE DAILY PRN PRN Reason: Constipation Metoprolol Tartrate (Metoprolol Tartrate 12.5 Mg Halftab) 12.5 mg G-TUBE BID [facility]; Protocol Last Admin: 12/13/24 08:38 Dose: 12.5 mg Mirtazapine (Mirtazapine 15 Mg Tablet) 15 mg G-TUBE BEDTIME [facility] Last Admin: 12/16/24 21:12 Dose: 15 mg Nicotine Polacrilex (Nicotine Polacrilex 2 Mg Gum) 4 mg BUCCAL Q2H PRN PRN Reason: Nicotine Cravings Nystatin (Nystatin Powder 15 Gm Bottle) 1 appl TOPICAL BID [facility]; Protocol Last Admin: 12/16/24 21:19 Dose: 1 appl Oxycodone HCl (Oxycodone Hcl Immed Release 5 Mg Tablet) 5 mg PO Q6H PRN PRN Reason: Pain, Severe (Pain Scale 7-10) Last Admin: 12/16/24 21:12 Dose: 5 mg Sertraline HCl (Sertraline Hcl 50 Mg Tablet) 50 mg G-TUBE DAILY [facility] Last Admin: 12/16/24 09:46 Dose: 50 mg Trazodone HCl (Trazodone Hcl 50 Mg Tablet) 50 mg G-TUBE BEDTIME MRX1 PRN PRN Reason: Insomnia Last Admin: 12/14/24 21:44 Dose: 50 mg Allergies Allergies Allergy/AdvReac Type Severity Reaction Status Date / Time apple Allergy Unknown Verified 11/30/24 22:50 cefuroxime Allergy Unknown Verified 11/30/24 22:50 cephalexin [From Keflex] Allergy Unknown Verified 11/30/24 22:50 ciprofloxacin Allergy Unknown Verified 11/30/24 22:50 clarithromycin Allergy Unknown Verified 11/30/24 22:50 codeine Allergy Unknown Verified 11/30/24 22:50 doxycycline Allergy Unknown Verified 11/30/24 22:50 erythromycin base Allergy Unknown Verified 11/30/24 22:50 furosemide Allergy Unknown Verified 11/30/24 22:50 hydromorphone [From Dilaudid] Allergy Unknown Verified 11/30/24 22:50 indomethacin Allergy Unknown Verified 11/30/24 22:50 Iodinated Contrast Media Allergy Unknown Verified 11/30/24 22:50 iodine Allergy Unknown Verified 11/30/24 22:50 nitrofurantoin Allergy Unknown Verified 11/30/24 22:50 omeprazole Allergy Unknown Verified 11/30/24 22:50 penicillin G Allergy Unknown Verified 11/30/24 22:50 Penicillins Allergy Unknown Verified 11/30/24 22:50 pseudoephedrine Allergy Unknown Verified 11/30/24 22:50 shellfish derived [shellfish] Allergy Unknown Verified 11/30/24 22:50 Sulfa (Sulfonamide Allergy Unknown Verified 11/30/24 22:50 Antibiotics) Assessment & Plan Assessment & Plan (1) Gastrostomy tube in place: Status: Acute Code(s): Z93.1 - Gastrostomy status (2) MDD (major depressive disorder), recurrent episode, severe: Status: Acute Code(s): F33.2 - Major depressive disorder, recurrent severe without psychotic features Assessment and Plan: ongoing resistance to self care, eating, walking issues- on tpo and refuses to walk getting PT- (3) Other and unspecified Escherichia coli (E. coli): Status: Acute Code(s): A49.8 - Other bacterial infections of unspecified site Assessment and Plan: EPEC detected in stool from 12/09 - pt co bloathing and abd discomfort- Plan At present, no concerning issues regarding G-tube. Nurse as stated that has been used throughout the patient's hospitalization and she has had no issues with flushing or refusing meds. Continue using G-tube. We will follow up p.r.n.. No surgical issues at this time. Patient educated on: medical condition Informed Consent: further education needed Reason for continued inpatient stay Substantial Risk for: rapid decompensation and med/psych decompensation Time Spent With Patient Time: Total time managing care of this patient today ____ minutes.
[2024-12-17] MEDS: Sertraline HCL 50 MG TABLET G-TUBE (10:50)
[2024-12-17] MEDS: Famotidine 20 MG TABLET G-TUBE ×2 (10:50→21:02)
[2024-12-17] MEDS: Loperamide HCl Oral Liquid 2 MG/15 ML LIQUID 4 MG G-TUBE ×3 (10:50→21:27)
[2024-12-17] MEDS: Nystatin Powder 15 GM BOTTLE 1 APPL TOPICAL ×2 (10:51→21:11)
[2024-12-17] MEDS: Milk of Magnesia 30 ML ORAL.SUSP G-TUBE (11:55)
[2024-12-17] MEDS: Enoxaparin Sodium 40 MG/0.4 ML SYRINGE SUBCUT (17:59)
[2024-12-17 20:00] VITALS: BP 122/57; PULSE 72; RESP 16; TEMP 36.8; O2SAT 98
[2024-12-17] MEDS: Mirtazapine 15 MG TABLET G-TUBE (21:02)
[2024-12-18 08:00] VITALS: BP 126/60; PULSE 70; RESP 18; TEMP 36.1; O2SAT 98
--- NOTE | 2024-12-18 08:00 | HO.PSYCHPN ---
Subjective Subjective Date of Service: 12/18/24 Reason For Visit: major depressive d/o Subjective Notes: Conditional Voluntary Healthcare Proxy: No Guardianship: No Medical Problems Affecting Mental Status: Yes (gi issues) Medication Compliance: Yes Side effects from medications: No Attending Groups: No Review of Systems Acute medical concerns: Yes ongoing gi issues - ? 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 but wants me to check her inr to see if she is ok to be off luvonox Medical Review of Systems: unchanged Mental Status Exam Mental Status Exam Narrative: lying with cherri half off- showing me plastic on tube on outside disc thinking it is loose- Patient Orientation: Person, Place, Time and Situation Level of Consciousness: Awake and Alert Patient Behavior: Dependent and Good Eye Contact Behavior Comments: somatic focus Mood Description: Anxious Affect Description: Apprehensive Patient Cognition Impaired: No Ability to Follow Directions: Fair Speech Pattern: Clear Thought Process: Intact and Rumination Thought Content: positive for Perseveration Depressive Symptoms: Increased Anxiety (ongoing- not increased) and Unexplained Stomach Pain Judgement: Fair Diagnostics Vital Signs (24Hr): Vital Signs - 24 hr 12/17/24 20:00 Temperature 98.3 F Pulse Rate 72 Respiratory Rate 16 Blood Pressure 122/57 L Pulse Oximetry 98 Oxygen Delivery Method Room Air BMI result Body Mass Index 27.4 Labs 12/06/24 07:38 12/06/24 07:38 Medications Medications Current Medications Acetaminophen (Acetaminophen 325 Mg Tablet) 650 mg G-TUBE Q6H PRN PRN Reason: Headache/Pain, Scale 1-10 Last Admin: 12/17/24 01:04 Dose: 650 mg Al Hydroxide/Mg Hydroxide (Magnesium Hydrox/Alum Hydrox 30 Ml Oral.Susp) 30 ml G-TUBE Q6H PRN PRN Reason: Heartburn/Nausea Enoxaparin Sodium (Enoxaparin Sodium 40 Mg/0.4 Ml Syringe) 40 mg SUBCUT Q24H KLAUS Last Admin: 12/17/24 17:59 Dose: 40 mg Famotidine (Famotidine 20 Mg Tablet) 20 mg G-TUBE BID KLAUS Last Admin: 12/17/24 21:02 Dose: 20 mg Hydroxyzine HCl (Hydroxyzine Hcl 25 Mg Tablet) 25 mg G-TUBE Q6H PRN PRN Reason: mild anxiety Last Admin: 12/14/24 21:44 Dose: 25 mg Loperamide HCl (Loperamide Hcl Oral Liquid 2 Mg/15 Ml Liquid) 4 mg G-TUBE TID KLAUS Last Admin: 12/17/24 21:27 Dose: 4 mg Magnesium Hydroxide (Milk Of Magnesia 30 Ml Oral.Susp) 30 ml G-TUBE DAILY PRN PRN Reason: Constipation Last Admin: 12/17/24 11:55 Dose: 30 ml Metoprolol Tartrate (Metoprolol Tartrate 12.5 Mg Halftab) 12.5 mg G-TUBE BID KLAUS; Protocol Last Admin: 12/13/24 08:38 Dose: 12.5 mg Mirtazapine (Mirtazapine 15 Mg Tablet) 15 mg G-TUBE BEDTIME KLAUS Last Admin: 12/17/24 21:02 Dose: 15 mg Nicotine Polacrilex (Nicotine Polacrilex 2 Mg Gum) 4 mg BUCCAL Q2H PRN PRN Reason: Nicotine Cravings Nystatin (Nystatin Powder 15 Gm Bottle) 1 appl TOPICAL BID KLAUS; Protocol Last Admin: 12/17/24 21:11 Dose: 1 appl Oxycodone HCl (Oxycodone Hcl Immed Release 5 Mg Tablet) 5 mg PO Q6H PRN PRN Reason: Pain, Severe (Pain Scale 7-10) Last Admin: 12/16/24 21:12 Dose: 5 mg Sertraline HCl (Sertraline Hcl 50 Mg Tablet) 50 mg G-TUBE DAILY KLAUS Last Admin: 12/17/24 10:50 Dose: 50 mg Trazodone HCl (Trazodone Hcl 50 Mg Tablet) 50 mg G-TUBE BEDTIME MRX1 PRN PRN Reason: Insomnia Last Admin: 12/14/24 21:44 Dose: 50 mg Allergies Allergies Allergy/AdvReac Type Severity Reaction Status Date / Time apple Allergy Unknown Verified 11/30/24 22:50 cefuroxime Allergy Unknown Verified 11/30/24 22:50 cephalexin [From Keflex] Allergy Unknown Verified 11/30/24 22:50 ciprofloxacin Allergy Unknown Verified 11/30/24 22:50 clarithromycin Allergy Unknown Verified 11/30/24 22:50 codeine Allergy Unknown Verified 11/30/24 22:50 doxycycline Allergy Unknown Verified 11/30/24 22:50 erythromycin base Allergy Unknown Verified 11/30/24 22:50 furosemide Allergy Unknown Verified 11/30/24 22:50 hydromorphone [From Dilaudid] Allergy Unknown Verified 11/30/24 22:50 indomethacin Allergy Unknown Verified 11/30/24 22:50 Iodinated Contrast Media Allergy Unknown Verified 11/30/24 22:50 iodine Allergy Unknown Verified 11/30/24 22:50 nitrofurantoin Allergy Unknown Verified 11/30/24 22:50 omeprazole Allergy Unknown Verified 11/30/24 22:50 penicillin G Allergy Unknown Verified 11/30/24 22:50 Penicillins Allergy Unknown Verified 11/30/24 22:50 pseudoephedrine Allergy Unknown Verified 11/30/24 22:50 shellfish derived [shellfish] Allergy Unknown Verified 11/30/24 22:50 Sulfa (Sulfonamide Allergy Unknown Verified 11/30/24 22:50 Antibiotics) Assessment & Plan Assessment & Plan (1) Gastrostomy tube in place: Status: Acute Code(s): Z93.1 - Gastrostomy status (2) MDD (major depressive disorder), recurrent episode, severe: Status: Acute Code(s): F33.2 - Major depressive disorder, recurrent severe without psychotic features Assessment and Plan: ongoing resistance to self care, eating, walking issues- on tpo and refuses to walk getting PT- (3) Other and unspecified Escherichia coli (E. coli): Status: Acute Code(s): A49.8 - Other bacterial infections of unspecified site Assessment and Plan: EPEC detected in stool from 12/09 - pt co bloathing and abd discomfort- Plan At present, no concerning issues regarding G-tube. Nurse as stated that has been used throughout the patient's hospitalization and she has had no issues with flushing or refusing meds. Continue using G-tube. We will follow up p.r.n.. No surgical issues at this time. 12/18 reconsult GI re issues- hard to get her to focus on psychological issues- Patient educated on: medical condition Informed Consent: does not understand Reason for continued inpatient stay Substantial Risk for: inability to function, rapid decompensation and med/psych decompensation Time Spent With Patient Time: Total time managing care of this patient today ____ minutes.
[2024-12-18] MEDS: Sertraline HCL 50 MG TABLET G-TUBE (09:29)
[2024-12-18] MEDS: Famotidine 20 MG TABLET G-TUBE ×2 (09:29→21:21)
[2024-12-18] MEDS: Loperamide HCl Oral Liquid 2 MG/15 ML LIQUID 4 MG G-TUBE ×2 (09:37→21:21)
[2024-12-18] MEDS: Nystatin Powder 15 GM BOTTLE 1 APPL TOPICAL ×2 (11:11→21:27)
--- NOTE | 2024-12-18 16:13 | PC.NURSE ---
Patient did not have the 240ml flush, Charge nurse and handbook writer met resistance when aspirating gastric contents, Dr. Mireles notified.
[2024-12-18 20:00] VITALS: BP 123/56; PULSE 63; RESP 18; TEMP 36.3; O2SAT 98
[2024-12-18] MEDS: hydrOXYzine HCL 25 MG TABLET G-TUBE (21:21)
[2024-12-18] MEDS: Mirtazapine 15 MG TABLET G-TUBE (21:21)
[2024-12-18] MEDS: traZODone HCL 50 MG TABLET G-TUBE (21:22)
[2024-12-19] MEDS: traZODone HCL 50 MG TABLET G-TUBE ×2 (00:05→21:41)
[2024-12-19 08:00] VITALS: BP 108/53; PULSE 79; RESP 18; TEMP 36.4; O2SAT 96
--- NOTE | 2024-12-19 08:21 | P.PNPSI_ITS ---
Subjective Subjective Date of Service: 12/19/24 Reason For Visit: major depressive d/o Subjective Notes: Conditional Voluntary Interim History: Pt slept through the night. She has had few oral intake, but still uses gtube. She reports she feels it may be displaced, although she has been seen by surgeon. She continues to denied SI/HI. No overt psychosis or delusional content. Review of Systems Review of Systems No chest pain. No SOB back, knee and hip pain Mental Status Exam Mental Status Exam Narrative: Appearance: wearing hospital gown, lying in bed; in some physical pain due to fractures, hip surgery and chronic osteoarthritis Behavior: guarded, superficially cooperative Psychomotor: lower spasm-like movement of legs, no tremors Speech: clear, normal rate/rhythm/volume, spontaneous TP: Goal oriented TC: on concern about placement of Gtube Mood: i'm okay Affect: congruent SI: denies HI: denies VH/AH: denies Delusions: no overt signs Insight/judgment: Impaired Memory/cog: alert, oriented x 3. ACL 5 Diagnostics Vital Signs (24Hr): Vital Signs - 24 hr 12/18/24 20:00 12/19/24 08:00 Temperature 97.3 F 97.5 F Pulse Rate 63 79 Respiratory Rate 18 18 Blood Pressure 123/56 L 108/53 L Pulse Oximetry 98 96 Oxygen Delivery Method Room Air Room Air BMI result Body Mass Index 27.4 Labs 12/06/24 07:38 12/06/24 07:38 Medications Medications Current Medications Acetaminophen (Acetaminophen 325 Mg Tablet) 650 mg G-TUBE Q6H PRN PRN Reason: Headache/Pain, Scale 1-10 Last Admin: 12/17/24 01:04 Dose: 650 mg Al Hydroxide/Mg Hydroxide (Magnesium Hydrox/Alum Hydrox 30 Ml Oral.Susp) 30 ml G-TUBE Q6H PRN PRN Reason: Heartburn/Nausea Enoxaparin Sodium (Enoxaparin Sodium 40 Mg/0.4 Ml Syringe) 40 mg SUBCUT Q24H [facility], [facility] Last Admin: 12/18/24 16:56 Dose: Not Given Famotidine (Famotidine 20 Mg Tablet) 20 mg G-TUBE BID [facility], [facility] Last Admin: 12/18/24 21:21 Dose: 20 mg Hydroxyzine HCl (Hydroxyzine Hcl 25 Mg Tablet) 25 mg G-TUBE Q6H PRN PRN Reason: mild anxiety Last Admin: 12/18/24 21:21 Dose: 25 mg Loperamide HCl (Loperamide Hcl Oral Liquid 2 Mg/15 Ml Liquid) 4 mg G-TUBE TID KLAUS Last Admin: 12/18/24 21:21 Dose: 4 mg Magnesium Hydroxide (Milk Of Magnesia 30 Ml Oral.Susp) 30 ml G-TUBE DAILY PRN PRN Reason: Constipation Last Admin: 12/17/24 11:55 Dose: 30 ml Metoprolol Tartrate (Metoprolol Tartrate 12.5 Mg Halftab) 12.5 mg G-TUBE BID [facility], [facility]; Protocol Last Admin: 12/13/24 08:38 Dose: 12.5 mg Mirtazapine (Mirtazapine 15 Mg Tablet) 15 mg G-TUBE BEDTIME KLAUS Last Admin: 12/18/24 21:21 Dose: 15 mg Nicotine Polacrilex (Nicotine Polacrilex 2 Mg Gum) 4 mg BUCCAL Q2H PRN PRN Reason: Nicotine Cravings Nystatin (Nystatin Powder 15 Gm Bottle) 1 appl TOPICAL BID [facility], [facility]; Protocol Last Admin: 12/18/24 21:27 Dose: 1 appl Oxycodone HCl (Oxycodone Hcl Immed Release 5 Mg Tablet) 5 mg PO Q6H PRN PRN Reason: Pain, Severe (Pain Scale 7-10) Last Admin: 12/16/24 21:12 Dose: 5 mg Sertraline HCl (Sertraline Hcl 50 Mg Tablet) 50 mg G-TUBE DAILY [facility] Last Admin: 12/18/24 09:29 Dose: 50 mg Trazodone HCl (Trazodone Hcl 50 Mg Tablet) 50 mg G-TUBE BEDTIME MRX1 PRN PRN Reason: Insomnia Last Admin: 12/19/24 00:05 Dose: 50 mg Allergies Allergies Allergy/AdvReac Type Severity Reaction Status Date / Time apple Allergy Unknown Verified 11/30/24 22:50 cefuroxime Allergy Unknown Verified 11/30/24 22:50 cephalexin [From Keflex] Allergy Unknown Verified 11/30/24 22:50 ciprofloxacin Allergy Unknown Verified 11/30/24 22:50 clarithromycin Allergy Unknown Verified 11/30/24 22:50 codeine Allergy Unknown Verified 11/30/24 22:50 doxycycline Allergy Unknown Verified 11/30/24 22:50 erythromycin base Allergy Unknown Verified 11/30/24 22:50 furosemide Allergy Unknown Verified 11/30/24 22:50 hydromorphone [From Dilaudid] Allergy Unknown Verified 11/30/24 22:50 indomethacin Allergy Unknown Verified 11/30/24 22:50 Iodinated Contrast Media Allergy Unknown Verified 11/30/24 22:50 iodine Allergy Unknown Verified 11/30/24 22:50 nitrofurantoin Allergy Unknown Verified 11/30/24 22:50 omeprazole Allergy Unknown Verified 11/30/24 22:50 penicillin G Allergy Unknown Verified 11/30/24 22:50 Penicillins Allergy Unknown Verified 11/30/24 22:50 pseudoephedrine Allergy Unknown Verified 11/30/24 22:50 shellfish derived [shellfish] Allergy Unknown Verified 11/30/24 22:50 Sulfa (Sulfonamide Allergy Unknown Verified 11/30/24 22:50 Antibiotics) Assessment & Plan Assessment & Plan (1) MDD (major depressive disorder), recurrent episode, severe: Status: Acute Code(s): F33.2 - Major depressive disorder, recurrent severe without psychotic features Assessment and Plan: ongoing resistance to self care, eating, walking issues- on tpo and refuses to walk getting PT- (2) Gastrostomy tube in place: Status: Acute Code(s): Z93.1 - Gastrostomy status (3) Other and unspecified Escherichia coli (E. coli): Status: Acute Code(s): A49.8 - Other bacterial infections of unspecified site Assessment and Plan: EPEC detected in stool from 12/09 - pt co bloathing and abd discomfort- (4) Heart failure: Status: Acute Code(s): I50.9 - Heart failure, unspecified (5) Osteoarthritis: Status: Acute Code(s): M19.90 - Unspecified osteoarthritis, unspecified site (6) Thyroid nodule: Status: Acute Code(s): E04.1 - Nontoxic single thyroid nodule Assessment and Plan: TSH 0.23, Free T4 1.06 recommended to have another biopsy. (7) HTN (hypertension): Status: Acute Code(s): I10 - Essential (primary) hypertension (8) GERD (gastroesophageal reflux disease): Status: Acute Code(s): K21.9 - Gastro-esophageal reflux disease without esophagitis Plan Mrs. Nicholas is a 74 year-old woman who was brought via EMS to [facility] ED after falling down the stairs. She sustained a right trochanteric fracture, under went repair on 11/04/2024. She reported this was a suicide attempt. She is vague about events leading to suicide attempt. She declines to talk about her depression and provide more details about it. She does denied any plan or intent to harm herself at this moment but also reports feeling depressed and being in a worse situation than prior to suicide attempt. She was started on sertraline while at [facility]. Sertraline was titrated to 100mg po daily. She does have hx of IBS with diarrhea. She reports increase loose stools and although she suspects may be due to feeding with lactose, also consider exacerbation of IBS related loose stools with sertraline. She reports no improvement so far in terms of depression with current medications. PLAN 1. Admit to S1, CV, 5 mins checks 12/03 - unsure why sertraline has not been changed over to other med given diarrhea/colitis ? will discuss with pt tomorrow- otherwise ctp - change omeprazole to famotidine due to hx allergy- though pt does not remember the allergy- 12/04 -PT consult, GI consult, further consideration about changing ssri, change enteric feeding rate- 12/05 pt does present with slightly brighter and more willing to engage in treatment from multidisciplinary team. awaiting GI consult. 12/06 continue tx. 12/07 lower sertraline to 50mg Gtube daily, start effexor IR 25mg Gtube 12/08 continue tx. will titrate effexor gradually 12/09 increase effexor IR (given that she is taking it via Gtube) to 25mg po BID, increase remeron to 15mg po qhs. 12/10 Patient quite anxious on approach. Cell Builder asked why she did not let sleeping car service attendant examine her genitalia as consult was put in for inflamed labia; she is was not sure why, saying she worried that her leg cast would get in the way... That she was anxious about all the other things going on. Patient said however that she would allow them to examine upon return 12/12 switch effexor IR to XR oral. will be the only medication not given via G- tube. 12/13 continue tx. stop venlafaxine for now, see if it was causing blurry vision. 4/9 continue tx. 12/15 continue tx. ordered surgeon consult for placement of gtube. 12/16 continue tx. 12/19 concern mostly about placement of gtube but she has been seen by surgeon. no further intervention needed. No SI/HI. Reason for continued inpatient stay Substantial Risk for: inability to function Time Spent With Patient Time: Total time managing care of this patient today ____ minutes.
[2024-12-19] MEDS: Loperamide HCl Oral Liquid 2 MG/15 ML LIQUID 4 MG G-TUBE ×2 (09:26→21:42)
[2024-12-19] MEDS: Sertraline HCL 50 MG TABLET G-TUBE (09:26)
[2024-12-19] MEDS: Famotidine 20 MG TABLET G-TUBE ×2 (09:26→21:41)
[2024-12-19] MEDS: Nystatin Powder 15 GM BOTTLE 1 APPL TOPICAL ×2 (09:56→22:11)
--- NOTE | 2024-12-19 13:18 | MHC.CLN ---
F/U RECEIVES BOLUS TUBE FEEDING AND PUREE DIET. APPEARS TO BE TOLERATING CURRENT TUBE FEEDING. PT RECEIVING OSMOLITE 1.5 TF BOLUS 300ML Q 6 HRS WITH 240ML FREE WATER FLUSHES Q 8 HRS PROVIDES 1800KCALS (28KCALS/KG), 75G PROTEIN (1.2G/KG), 2092ML TOTAL WATER FROM FORMULA AND FLUSHES (32ML/KG) DO NOT COMBINE FORMULA AND FLUSHES AT SAME TIME. APPEARS TO BE TAKING SMALL AMOUNTS OF FOOD WITH HX POOR PO. TUBE FEEDING PROVIDING ADEQUATE NUTRITION TO MEET ESTIMATED NEEDS. CONTINUE TO MONITOR TOLERANCE, LYTES AND PO INTAKE.
[2024-12-19 20:00] VITALS: BP 115/53; PULSE 70; RESP 18; O2SAT 96
[2024-12-19] MEDS: Mirtazapine 15 MG TABLET G-TUBE (21:42)
[2024-12-20 08:00] VITALS: BP 135/67; PULSE 88; TEMP 36.2; O2SAT 99
[2024-12-20] MEDS: Famotidine 20 MG TABLET G-TUBE ×2 (09:54→20:41)
[2024-12-20] MEDS: Sertraline HCL 50 MG TABLET G-TUBE (09:54)
[2024-12-20] MEDS: Nystatin Powder 15 GM BOTTLE 1 APPL TOPICAL ×2 (09:56→20:54)
--- NOTE | 2024-12-20 10:03 | PC.NURSE ---
Pt has been drinking PO water and cranberry juice. Stated she feels full and declined tube feeding .
--- NOTE | 2024-12-20 11:31 | HO.PSYCHPN ---
Subjective Subjective Date of Service: 12/20/24 Reason For Visit: major depressive d/o Subjective Notes: Conditional Voluntary Interim History: Pt slept through the night. She has been eating more orally. She reports bloating after Gtube feeding, worried that it may be displaced but no signs of this, no leaking, feeding going in without a problem. She has participated more in PT. Denies SI/HI. Review of Systems Review of Systems No chest pain. No SOB back, knee and hip pain Mental Status Exam Mental Status Exam Narrative: Appearance: wearing hospital gown, lying in bed; in some physical pain due to fractures, hip surgery and chronic osteoarthritis Behavior: guarded, superficially cooperative Psychomotor: lower spasm-like movement of legs, no tremors Speech: clear, normal rate/rhythm/volume, spontaneous TP: Goal oriented TC: on concern about placement of Gtube Mood: i'm okay Affect: congruent SI: denies HI: denies VH/AH: denies Delusions: no overt signs Insight/judgment: Impaired Memory/cog: alert, oriented x 3. ACL 5 Diagnostics Vital Signs (24Hr): Vital Signs - 24 hr 12/19/24 20:00 Pulse Rate 70 Respiratory Rate 18 Blood Pressure 115/53 L Pulse Oximetry 96 Oxygen Delivery Method Room Air BMI result Body Mass Index 27.4 Labs 12/06/24 07:38 12/06/24 07:38 Medications Medications Current Medications Acetaminophen (Acetaminophen 325 Mg Tablet) 650 mg G-TUBE Q6H PRN PRN Reason: Headache/Pain, Scale 1-10 Last Admin: 12/17/24 01:04 Dose: 650 mg Al Hydroxide/Mg Hydroxide (Magnesium Hydrox/Alum Hydrox 30 Ml Oral.Susp) 30 ml G-TUBE Q6H PRN PRN Reason: Heartburn/Nausea Enoxaparin Sodium (Enoxaparin Sodium 40 Mg/0.4 Ml Syringe) 40 mg SUBCUT Q24H KLAUS Last Admin: 12/19/24 17:18 Dose: Not Given Famotidine (Famotidine 20 Mg Tablet) 20 mg G-TUBE BID KLAUS Last Admin: 12/20/24 09:54 Dose: 20 mg Hydroxyzine HCl (Hydroxyzine Hcl 25 Mg Tablet) 25 mg G-TUBE Q6H PRN PRN Reason: mild anxiety Last Admin: 12/18/24 21:21 Dose: 25 mg Loperamide HCl (Loperamide Hcl Oral Liquid 2 Mg/15 Ml Liquid) 4 mg G-TUBE TID KLAUS Last Admin: 12/20/24 10:16 Dose: Not Given Magnesium Hydroxide (Milk Of Magnesia 30 Ml Oral.Susp) 30 ml G-TUBE DAILY PRN PRN Reason: Constipation Last Admin: 12/17/24 11:55 Dose: 30 ml Metoprolol Tartrate (Metoprolol Tartrate 12.5 Mg Halftab) 12.5 mg G-TUBE BID KLAUS; Protocol Last Admin: 12/13/24 08:38 Dose: 12.5 mg Mirtazapine (Mirtazapine 15 Mg Tablet) 15 mg G-TUBE BEDTIME KLAUS Last Admin: 12/19/24 21:42 Dose: 15 mg Nicotine Polacrilex (Nicotine Polacrilex 2 Mg Gum) 4 mg BUCCAL Q2H PRN PRN Reason: Nicotine Cravings Nystatin (Nystatin Powder 15 Gm Bottle) 1 appl TOPICAL BID KLAUS; Protocol Last Admin: 12/20/24 09:56 Dose: 1 appl Oxycodone HCl (Oxycodone Hcl Immed Release 5 Mg Tablet) 5 mg PO Q6H PRN PRN Reason: Pain, Severe (Pain Scale 7-10) Last Admin: 12/16/24 21:12 Dose: 5 mg Sertraline HCl (Sertraline Hcl 50 Mg Tablet) 50 mg G-TUBE DAILY KLAUS Last Admin: 12/20/24 09:54 Dose: 50 mg Trazodone HCl (Trazodone Hcl 50 Mg Tablet) 50 mg G-TUBE BEDTIME MRX1 PRN PRN Reason: Insomnia Last Admin: 12/19/24 21:41 Dose: 50 mg Allergies Allergies Allergy/AdvReac Type Severity Reaction Status Date / Time apple Allergy Unknown Verified 11/30/24 22:50 cefuroxime Allergy Unknown Verified 11/30/24 22:50 cephalexin [From Keflex] Allergy Unknown Verified 11/30/24 22:50 ciprofloxacin Allergy Unknown Verified 11/30/24 22:50 clarithromycin Allergy Unknown Verified 11/30/24 22:50 codeine Allergy Unknown Verified 11/30/24 22:50 doxycycline Allergy Unknown Verified 11/30/24 22:50 erythromycin base Allergy Unknown Verified 11/30/24 22:50 furosemide Allergy Unknown Verified 11/30/24 22:50 hydromorphone [From Dilaudid] Allergy Unknown Verified 11/30/24 22:50 indomethacin Allergy Unknown Verified 11/30/24 22:50 Iodinated Contrast Media Allergy Unknown Verified 11/30/24 22:50 iodine Allergy Unknown Verified 11/30/24 22:50 nitrofurantoin Allergy Unknown Verified 11/30/24 22:50 omeprazole Allergy Unknown Verified 11/30/24 22:50 penicillin G Allergy Unknown Verified 11/30/24 22:50 Penicillins Allergy Unknown Verified 11/30/24 22:50 pseudoephedrine Allergy Unknown Verified 11/30/24 22:50 shellfish derived [shellfish] Allergy Unknown Verified 11/30/24 22:50 Sulfa (Sulfonamide Allergy Unknown Verified 11/30/24 22:50 Antibiotics) Assessment & Plan Assessment & Plan (1) MDD (major depressive disorder), recurrent episode, severe: Status: Acute Code(s): F33.2 - Major depressive disorder, recurrent severe without psychotic features Assessment and Plan: ongoing resistance to self care, eating, walking issues- on tpo and refuses to walk getting PT- (2) Gastrostomy tube in place: Status: Acute Code(s): Z93.1 - Gastrostomy status (3) Other and unspecified Escherichia coli (E. coli): Status: Acute Code(s): A49.8 - Other bacterial infections of unspecified site Assessment and Plan: EPEC detected in stool from 12/09 - pt co bloathing and abd discomfort- (4) Heart failure: Status: Acute Code(s): I50.9 - Heart failure, unspecified (5) Osteoarthritis: Status: Acute Code(s): M19.90 - Unspecified osteoarthritis, unspecified site (6) Thyroid nodule: Status: Acute Code(s): E04.1 - Nontoxic single thyroid nodule Assessment and Plan: TSH 0.23, Free T4 1.06 recommended to have another biopsy. (7) HTN (hypertension): Status: Acute Code(s): I10 - Essential (primary) hypertension (8) GERD (gastroesophageal reflux disease): Status: Acute Code(s): K21.9 - Gastro-esophageal reflux disease without esophagitis Plan Mrs. Nicholas is a 74 year-old woman who was brought via EMS to [facility] ED after falling down the stairs. She sustained a right trochanteric fracture, under went repair on 11/04/2024. She reported this was a suicide attempt. She is vague about events leading to suicide attempt. She declines to talk about her depression and provide more details about it. She does denied any plan or intent to harm herself at this moment but also reports feeling depressed and being in a worse situation than prior to suicide attempt. She was started on sertraline while at [facility]. Sertraline was titrated to 100mg po daily. She does have hx of IBS with diarrhea. She reports increase loose stools and although she suspects may be due to feeding with lactose, also consider exacerbation of IBS related loose stools with sertraline. She reports no improvement so far in terms of depression with current medications. PLAN 1. Admit to S1, CV, 5 mins checks 12/03 - unsure why sertraline has not been changed over to other med given diarrhea/colitis ? will discuss with pt tomorrow- otherwise ctp - change omeprazole to famotidine due to hx allergy- though pt does not remember the allergy- 12/04 -PT consult, GI consult, further consideration about changing ssri, change enteric feeding rate- 12/05 pt does present with slightly brighter and more willing to engage in treatment from multidisciplinary team. awaiting GI consult. 12/06 continue tx. 12/07 lower sertraline to 50mg Gtube daily, start effexor IR 25mg Gtube 12/08 continue tx. will titrate effexor gradually 12/09 increase effexor IR (given that she is taking it via Gtube) to 25mg po BID, increase remeron to 15mg po qhs. 12/10 Patient quite anxious on approach. Storage Management Consultant asked why she did not let telecommunications field technician examine her genitalia as consult was put in for inflamed labia; she is was not sure why, saying she worried that her leg cast would get in the way... That she was anxious about all the other things going on. Patient said however that she would allow them to examine upon return 12/12 switch effexor IR to XR oral. will be the only medication not given via G-tube. 12/13 continue tx. stop venlafaxine for now, see if it was causing blurry vision. 12/14 continue tx. 12/15 continue tx. ordered surgeon consult for placement of gtube. 4/11 continue tx. 12/19 concern mostly about placement of gtube but she has been seen by surgeon. no further intervention needed. No SI/HI. 12/20 continue tx. Reason for continued inpatient stay Substantial Risk for: inability to function Time Spent With Patient Time: Total time managing care of this patient today ____ minutes.
[2024-12-20] MEDS: Enoxaparin Sodium 40 MG/0.4 ML SYRINGE SUBCUT (17:10)
[2024-12-20 20:00] VITALS: BP 114/54; PULSE 67; RESP 18; TEMP 37.2; O2SAT 97
[2024-12-20] MEDS: Mirtazapine 15 MG TABLET G-TUBE (20:42)
[2024-12-21] MEDS: Sertraline HCL 50 MG TABLET G-TUBE (08:27)
[2024-12-21] MEDS: Famotidine 20 MG TABLET G-TUBE (08:27)
[2024-12-21 08:28] VITALS: BP 114/58; PULSE 71; RESP 16; TEMP 36.1; O2SAT 95
--- NOTE | 2024-12-21 09:15 | P.DS_ITS ---
DS: Providers Provider Date of Service: 12/21/24 Date of admission: 11/30/24 21:45 Date of discharge: 12/21/24 Primary care physician: Alexandra Poe MD Consults: 11/30/24 23:09 Consult to Hospitalist Routine Comment: Consulting Provider: [facility] Reason For Exam: admission physical 12/01/24 15:51 Consult to Wound Care Routine Reason for consultation: pressure ulcer coccyx 12/04/24 13:28 Consult to Gastroenterology Routine Consulting Provider: Robbie Lee Reason for consultation: evaluate enteral feeds ? appropriate substrate, pt with diarrhea bowel dist Has provider been notified: No 12/09/24 11:12 Consult to Obstetrics / Gynecology Routine Consulting Provider: Mannie Vigil Reason for consultation: left labia ?boil Has provider been notified: Yes 12/13/24 11:57 Consult to Orthopedics Routine Consulting Provider: [facility] Reason for consultation: p/s repair right hip fracture Has provider been notified: Yes 12/15/24 16:59 Consult to General Surgery Routine Consulting Provider: [facility] General Surgeons Reason for consultation: ? misplacement of gtube Has provider been notified: Yes 12/18/24 15:52 Consult to Gastroenterology Routine Consulting Provider: Bk Richter Reason for consultation: follow up on gi issues- ecoli? and tube concerns ? remove Has provider been notified: No DS: Diagnosis Discharge Diagnosis (1) MDD (major depressive disorder), recurrent episode, severe: Status: Acute (2) Gastrostomy tube in place: Status: Acute (3) Other and unspecified Escherichia coli (E. coli): Status: Acute (4) Heart failure: Status: Acute (5) Osteoarthritis: Status: Acute (6) Thyroid nodule: Status: Acute (7) HTN (hypertension): Status: Acute (8) GERD (gastroesophageal reflux disease): Status: Acute DS: Medications Discharge Medications Home Medications: Previous Rx's ?Medication ?Instructions ?Recorded acetaminophen 325 mg tablet 650 mg (2 x 325 mg) G-tube Q6H PRN 12/21/24 Headache/Pain, Scale 1-10 #0 tabs enoxaparin 40 mg/0.4 mL 40 mg (0.4 mL) subcut Q24H #4 mL 12/21/24 subcutaneous syringe famotidine 20 mg tablet 20 mg G-tube BID #0 tabs 04/16/25 hydroxyzine HCl 25 mg tablet 25 mg G-tube Q6H PRN mild anxiety 12/21/24 #0 tabs loperamide 1 mg/7.5 mL oral liquid 4 mg (30 mL) G-tube TID #0 mL 12/21/24 (Imodium A-D) mirtazapine 15 mg tablet 15 mg G-tube BEDTIME #0 tabs 12/21/24 nystatin 100,000 unit/gram topical 1 appl topical BID #0 grams 12/21/24 powder (Nyamyc) oxycodone 5 mg tablet 5 mg PO Q6H PRN Pain, Severe (Pain 12/21/24 Scale 7-10) #21 tabs sertraline 50 mg tablet 50 mg G-tube DAILY #0 tabs 12/21/24 trazodone 50 mg tablet 50 mg G-tube BEDTIME MRX1 PRN 12/21/24 Insomnia #0 tabs Mental Status Exam Mental Status Exam Narrative: Appearance: wearing hospital gown, lying in bed; in some physical pain due to fractures, hip surgery and chronic osteoarthritis Behavior: guarded, superficially cooperative Psychomotor: lower spasm-like movement of legs, no tremors Speech: clear, normal rate/rhythm/volume, spontaneous TP: Goal oriented TC: on concern about placement of Gtube Mood: i'm okay Affect: congruent SI: denies HI: denies VH/AH: denies Delusions: no overt signs Insight/judgment: Impaired Memory/cog: alert, oriented x 3. ACL 5 Data Data Completed and Pending Completed studies during hospitalization [Text1]: 12/08/24 19:05 TSH Receptor Ab <1.00 DS: Summary Hospital Course Hospital Course: Mrs. Nicholas is a 74 year-old woman with was brought initially to [facility] ED after she felt from wheelchair and sustained fracture in distal right femoral neck intertrochanteric region. She underwent surgical repair on 11/04. She reported throwing self down the stairs was a suicide attempts. During the hospital stay, she reported she continued to report regret from still being alive. She was seen by psychiatry and was started on sertraline which was titrated to 100mg po daily. She had daily OT/PT. She apparently had reported difficulty swallowing and was started on PEG on 3/19. She had declined anticoagulant for hx of DVT/PE, she had been on coumadin prior to coming to the hospital but reported fear of bleeding. She was continued on lovenox. Pt seen in her room. She is lying in bed. She reports she is in a lot of pain and is worried about moving her legs despite support from PT and OT. She reports she may not be able to participate in PT/OT therapy. She reports she has been feeling more depressed in the past few months. When asked to elaborate, she reports she does not what to think about it and talk about it. She initially reported she does not want to talk about her depression nor reason for being here in the hospital. She denied suicidal ideation. She reported she has children and wants to be with them. She reported she misses her family and hopes to see them soon. She also reports her family are upset with me. She reports now I'm broken. She denies hx of suicide attempts. She denies hx of VH/AH. No signs of delusions. No hx of delusions. She reports poor sleep due to pain. She reports increased loose stools, which are chronic and apparently due to IBS. She reports that although loose stools are chronic they seemed to have increased in frequency recently. She attributed it to being lactose intolerant. Past Psychiatric History: Inpt: none OP: none Past medication trials: she reports hx of sertraline which was effective but stopped because she was feeling better Hx of suicide attempt: denies prior suicide attempt Medical Evaluation Reviewed: Yes HOSPITAL COURSE On the unit, pt was admitted on a CV and placed on 15 minutes checks for safety. Pt presented with guilt and shame related to suicide attempt. She also reported depressed mood. She identify her children as protective factor. We discussed risks, benefits and alternative treatment options. She had been on sertraline in the past with good effect. She had been started on sertraline at [facility]. She had increased loose stools related to IBS, which seemed to have been exacerbated by sertraline. We tried switching to effexor but patient reported blurry vision and therefore, medication was discontinued. She was continued on sertraline on lower dose and lose stools seemed to be decreased. She denied suicidal ideation throughout this admission. She was somatically preoccupied, and discussing this was easier than her own emotional distress. She had a tendency at times to ask for help but also reject such help when offered (such as when had swollen labia and ASS[employer]ATE [employer] DIRECTOR came to examine her or declined re-do of biopsy thyroid mass) and underlying feeling that she was not believed in terms of not being able to eat or fully participate in PT/OT due to pain. She was seen by surgeon as pt reported misplacement of Gtube but this was negative. She also had xray which also did not show that gtube was misplaced. She was seen by GI for loose stools due to IBS. She was started on scheduled loperamide 4mg TID. She was also seen by PT and OT. She required levi left and total care. Status at Discharge Cognitive/behavioral status at discharge: Pt with brighter affect. No SI/HI. Sleeping and eating minimally orally but encouraged to do so. No psychosis or delusions. Functional status at discharge: bed bound Overall status at discharge: patient is progressing back to baseline Time Spent with Patient Time attestation: Total time managing care of this patient today __40__ minutes. Time spent: Greater than 30 minutes Discharge Plan Discharge Anticipated Discharge Date/Time: 12/21/24 08:59 Patient Disposition: Home, Self-Care Discharge Diagnosis: MDD, recurrent, moderate Referrals: [facility] [Other] - 12/21/24 10:30 am (Transfer to rehab on 12/21/24 at 10:30.) Aimee Langle[facility] [employer] [Other] - 1 Week (Please follow up with your case management associate as needed with [employer]. ) Alexandra Poe MD [Primary Care Provider] - 1 Month (Follow up with your PCP following rehab. ) Discharge Medications: New enoxaparin 40 mg/0.4 mL Syringe 40 mg subcut Q24H Qty: 4 0RF acetaminophen 325 mg Tablet 650 mg G-tube Q6H PRN (Reason: Headache/Pain, Scale 1-10) Qty: 0 0RF trazodone 50 mg Tablet 50 mg G-tube BEDTIME MRX1 PRN (Reason: Insomnia) Qty: 0 0RF famotidine 20 mg Tablet 20 mg G-tube BID Qty: 0 0RF hydroxyzine HCl 25 mg Tablet 25 mg G-tube Q6H PRN (Reason: mild anxiety) Qty: 0 0RF mirtazapine 15 mg Tablet 15 mg G-tube BEDTIME Qty: 0 0RF sertraline 50 mg Tablet 50 mg G-tube DAILY Qty: 0 0RF oxycodone 5 mg Tablet 5 mg PO Q6H PRN (Reason: Pain, Severe (Pain Scale 7-10)) Qty: 21 0RF Rx Instructions: Partial Fill upon patient request. loperamide [Imodium A-D] 1 mg/7.5 mL Liquid 4 mg G-tube TID Qty: 0 0RF nystatin [Nyamyc] 100,000 unit/gram Powder 1 appl topical BID Qty: 0 0RF Protocol: Apply to: Apply to: perineal area Discontinued acetaminophen 500 mg Tablet 1,000 mg PO Q6H PRN (Reason: Pain) loperamide 1 mg/5 mL Liquid 2 mg PO Q6H PRN (Reason: Diarrhea) Rx Instructions: administer after each loose stool until symptoms controlled; do not exceed 16 mg per 24 hrs lansoprazole 30 mg Capsule,Delayed Release(Dr/Ec) 30 mg PO DAILY enoxaparin 40 mg/0.4 mL Syringe 40 mg SUBCUT DAILY metoprolol tartrate 25 mg Tablet 12.5 mg PO BID mirtazapine 7.5 mg Tablet 7.5 mg PO BEDTIME sertraline 100 mg Tablet 100 mg PO DAILY oxycodone 5 mg Tablet 5 mg PO Q6H PRN (Reason: Pain) Discharge Orders: Discharge Order (Routine); Ordered 12/21/24 Ordered By: Xuan Saldivar Diet: Advance to usual diet Activity on Discharge: wheelchair bound Stand Alone Forms: Patient Portal Discharge page Print Language: Unable To Collect Care Plan Goals: 1. Maintain mood 2. NO SI/HI Health Concerns: follow up with ortho, endocrinology for thyroid mass Plan of Treatment: 1. take medications as prescribed, encouraged oral intake 2. go to nearest ED or call 911 in event of emergency Assessment: Pt with brighter, still within constricted range. No SI/HI. Sleeping and eating.
--- NOTE | 2024-12-21 12:23 | PC.NURSE ---
This publicity writer spoke to staff in [facility] and provided an N2N. No additional questions or concerns noted or reported.
== END 2024-12-21 10:35 | disposition home or self-care (01) | DRG 751 ==
PROVIDERS: Internal Medicine; Internal Medicine Gastroenterology; Psychiatry & Neurology Psychiatry; Social Worker; Admitting Provider Psychiatry & Neurology Psychiatry; PCP Internal Medicine; Visit Provider Psychiatry & Neurology Psychiatry
DX: F33.2 Major depressive disorder, recurrent severe without psychotic features (principal); A04.0 Enteropathogenic Escherichia coli infection; I11.0 Hypertensive heart disease with heart failure; R13.10 Dysphagia, unspecified; I50.9 Heart failure, unspecified; K21.9 Gastro-esophageal reflux disease without esophagitis; N76.89 Other specified inflammation of vagina and vulva; E04.1 Nontoxic single thyroid nodule; M19.90 Unspecified osteoarthritis, unspecified site; R73.03 Prediabetes; Z93.1 Gastrostomy status; Z99.3 Dependence on wheelchair; Z86.718 Personal history of other venous thrombosis and embolism; Z86.711 Personal history of pulmonary embolism; Z91.51 Personal history of suicidal behavior; Z79.01 Long term (current) use of anticoagulants; Z79.899 Other long term (current) drug therapy
CPT/HCPCS: 36415; 73552; 73560; 74018; 80053; 80061; 83036; 83520; 84439; 84443; 85025; 87493; 87507; 89055; 92526; 92610; 97110; 97163; 97167; 97530; 97535; J1650

== ENCOUNTER → 2024-11-30 21:45 | Outpatient (BNV) | payer OTHER, SELFPAY | PROVIDERS: Admitting Provider Psychiatry & Neurology Psychiatry; PCP Internal Medicine; Visit Provider Student in an Organized Health Care Education/Training Program | DX: Z00.8 Encounter for other general examination (principal) | CPT/HCPCS: 99222 ==

== ENCOUNTER → 2024-11-30 21:45 | Outpatient (BNV) | payer OTHER, SELFPAY | PROVIDERS: Admitting Provider Psychiatry & Neurology Psychiatry; PCP Internal Medicine; Visit Provider Obstetrics & Gynecology | DX: N90.89 Other specified noninflammatory disorders of vulva and perineum (principal) | CPT/HCPCS: 99221 ==

== ENCOUNTER → 2024-11-30 21:45 | Outpatient (BNV) | payer OTHER, SELFPAY | PROVIDERS: Admitting Provider Psychiatry & Neurology Psychiatry; PCP Internal Medicine; Visit Provider Social Worker | DX: F33.2 Major depressive disorder, recurrent severe without psychotic features (principal); I50.9 Heart failure, unspecified; M19.90 Unspecified osteoarthritis, unspecified site; E04.1 Nontoxic single thyroid nodule; I10 Essential (primary) hypertension; K21.9 Gastro-esophageal reflux disease without esophagitis | CPT/HCPCS: 90792; 99232 ==

== ENCOUNTER → 2024-11-30 21:45 | Outpatient (BNV) | payer OTHER, SELFPAY | PROVIDERS: Admitting Provider Psychiatry & Neurology Psychiatry; PCP Internal Medicine; Visit Provider Surgery | DX: Z93.1 Gastrostomy status (principal) | CPT/HCPCS: 99222 ==